=== PATIENT | male | born 1935 | race Caucasian/White ===

== ENCOUNTER → 2019-08-14 | Outpatient (CLI) | payer MEDICARE ==
--- NOTE | 2019-08-14 16:18 | CT ---
EXAMINATION TYPE: CT abdomen pelvis wo con DATE OF EXAM: 08/14/2019 COMPARISON: None INDICATION: Urine retention. DLP: 879.2 mGycm, Automated exposure control for dose reduction was used. CONTRAST: 0 mL of Isovue 300. Study performed without Oral Contrast TECHNIQUE: Axial images were obtained from above the diaphragm to the pubic rami in the axial plane a t 5 mm thick sections. Reconstructed images are reviewed on the computer in the coronal plane. FINDINGS: Limited CT sections are obtained the lung bases. The lung bases are clear. CT ABDOMEN: Liver: Normal Spleen: Normal Pancreas: Normal Adrenal glands: The adrenal glands are normal. Gallbladder: Normal Kidneys: No masses are evident. No hydronephrosis is present. No cysts are present. Vascular calci fication appears to be present. Aorta: Vascular calcification is within the aorta. Inferior vena cava: Normal. CT PELVIS: Loops of bowel within the abdomen and pelvis are normal. Several scattered diverticuli within the si gmoid colon. There are loops of bowel which are incompletely distended or lack oral contrast limiti ng their evaluation. Appendix: Normal as visualized. Urinary bladder: Urinary bladder diverticulum is along the superior right margin. Urinary bladder is distended. Outlet obstruction with a prominent prostate could account for this finding. Genitourinary structures: Prostate is prominent Osseous structures: No suspicious lytic or sclerotic lesions. IMPRESSIONS: 1. Diverticulosis without acute diverticulitis. 2. Prostate hypertrophy could contribute to urinary bladder distention. 3. Urinary bladder diverticulum is present.
== END ==
LOC: RADCTMAIN 14:41
PROVIDERS: ATTEND Urology
DX: K57.90 Diverticulosis of intestine, part unspecified, without perforation or abscess without bleeding (principal); N40.1 Benign prostatic hyperplasia with lower urinary tract symptoms; N32.3 Diverticulum of bladder
CPT/HCPCS: 74176

== ENCOUNTER → 2019-08-23 | Outpatient (CLI) | payer MEDICARE ==
[2019-08-23 13:16] LABS: Basophils % (A) 1 %; Eosinophils # (A) 0.1 k/uL (0-0.7); Eosinophils % (A) 2 %; HCT 39.1 % (39.0-53.0); HGB 12.5 gm/dL (13.0-17.5); Lymphocytes # (A) 0.9 k/uL (1.0-4.8); Lymphocytes % (A) 15 %; MCH 31.8 pg (25.0-35.0); MCHC 31.9 g/dL (31.0-37.0); MCV 99.6 fL (80.0-100.0); Monocytes # (A) 0.3 k/uL (0-1.0); Monocytes % (A) 6 %; Neutrophils # (A) 4.3 k/uL (1.3-7.7); Neutrophils % (A) 75 %; Platelet Count 196 k/uL (150-450); RBC 3.93 m/uL (4.30-5.90); WBC 5.7 k/uL (3.8-10.6)
[2019-08-23 13:20] LABS: Albumin 4.1 g/dL (3.5-5.0); Calcium 9.1 mg/dL (8.4-10.2); Potassium 4.4 mmol/L (3.5-5.1); Total Bilirubin 0.6 mg/dL (0.2-1.3); Total Protein 6.8 g/dL (6.3-8.2)
[2019-08-23 14:43] LABS: Appearance,Urine Clear (Clear); Bilirubin,Urine Negative (Negative); Blood,Urine Negative (Negative); Color,Urine Light Yellow; Glucose,Urine (UA) Negative (Negative); Ketones,Urine Negative (Negative); Leukocyte Esterase,Urine Negative (Negative); Nitrite,Urine Negative (Negative); Protein,Urine Negative (Negative); Specific Gravity,Urine 1.005 (1.001-1.035); Urobilinogen,Urine <2.0 mg/dL (<2.0)
== END | disposition home or self-care (01) ==
LOC: LABPAT 11:53
PROVIDERS: ATTEND Urology
DX: Z01.812 Encounter for preprocedural laboratory examination (principal); Z01.818 Encounter for other preprocedural examination; N32.3 Diverticulum of bladder
CPT/HCPCS: 80053; 81003; 85025; 87086; 93005

== ENCOUNTER 2019-08-30 08:40 | Inpatient (IN) | payer MEDICARE ==
--- NOTE | 2019-08-29 19:28 | P.GSHP ---
History of Present Illness H&P Date: 08/29/19 The patient is 84 He has incomplete bladder emptying aggravated by a large bladder diverticula Hi residuals have increased to a liter His cystoscopies havent identified outlet obstruction He therefore comes for a bladder diverticulectomy aas his symptoms of frequeny and incomplete voiding have worsened. He has been on flomax bid and timed and double void which hasnt helped him, enough H hasa been cleared by cardiology - Constitutional Constitutional: Denies chills, Denies fever - EENT Eyes: denies blurred vision, denies pain Ears, nose, mouth and throat: Denies headache, Denies sore throat - Cardiovascular Cardiovascular: Denies chest pain, Denies shortness of breath - Respiratory Respiratory: Denies cough, Denies 7 - Gastrointestinal Gastrointestinal: Denies abdominal pain, Denies diarrhea, Denies nausea, Denies vomiting - Genitourinary (Female) Genitourinary: Denies dysuria, Denies hematuria - Genitourinary (Male) Genitourinary: Denies dysuria, Denies hematuria - Musculoskeletal Musculoskeletal: Denies myalgias - Integumentary Integumentary: Denies pruritus, Denies rash - Neurological Neurological: Denies numbness, Denies weakness - Psychiatric Psychiatric: Denies anxiety, Denies depression - Endocrine Endocrine: Denies fatigue, Denies weight change Past Medical History Past Medical History: GERD/Reflux, Hearing Disorder / Deafness, Hyperlipidemia, Hypertension Additional Past Medical History / Comment(s): Elevated psa - following with dr burger, macular degeneration. SINUS/ALLERGIES History of Any Multi-Drug Resistant Organisms: None Reported Past Surgical History: Hernia Repair Additional Past Surgical History / Comment(s): Chavo cataract surgery Past Anesthesia/Blood Transfusion Reactions: No Reported Reaction Past Psychological History: Anxiety Smoking Status: Former smoker Past Alcohol Use History: None Reported Additional Past Alcohol Use History / Comment(s): QUIT SMOKING IN EARLY , 1PPD. STILL CHEWS TOBACCO. Past Drug Use History: None Reported - Past Family History Father Family Medical History: Cancer Additional Family Medical History / Comment(s): prostate - passed in 60's Mother Family Medical History: Myocardial Infarction ([place]) Medications and Allergies Home Medications Medication Instructions Recorded Confirmed Type ALPRAZolam [Xanax] 0.25 mg PO DAILY PRN 03/10/16 08/24/19 History Aspirin EC [Ecotrin Low Dose] 81 mg PO DAILY 03/10/16 08/24/19 History Atorvastatin Calcium [Lipitor] 40 mg PO HS 03/10/16 08/24/19 History Cholecalciferol [Vitamin D3 (25 1,000 unit PO DAILY 03/10/16 08/24/19 History Mcg = 1000 Iu)] Lisinopril [Zestril] 10 mg PO QAM 03/10/16 08/24/19 History Magnesium Oxide [Mag-Ox] 400 mg PO DAILY 03/10/16 08/24/19 History Pantoprazole Sodium [Protonix] 40 mg PO DAILY 03/10/16 08/24/19 History Tamsulosin HCl [Flomax] 0.4 mg PO BID 03/10/16 08/24/19 History amLODIPine [Norvasc] 5 mg PO DAILY #30 tab 03/11/16 08/24/19 Rx Ascorbic Acid [Vitamin C] 1 tab PO DAILY 08/24/19 08/24/19 History Ezetimibe [Zetia] 10 mg PO DAILY 08/24/19 08/24/19 History Ferrous Sulfate [Iron (65 MG 1 tab PO DAILY 08/24/19 08/24/19 History Elemental)] Loratadine [Claritin] 10 mg PO DAILY 08/24/19 08/24/19 History Metoprolol Succinate (ER) [Toprol 12.5 mg PO DAILY 08/24/19 08/24/19 History XL] traZODone HCL [TraZODone HCl] 50 - 100 mg PO HS PRN 08/24/19 08/24/19 History Allergies Allergy/AdvReac Type Severity Reaction Status Date / Time No Known Allergies Allergy Unverified 08/24/19 11:45 Surgical - Exam - General well developed, well nourished, no distress - Eyes PERRL - ENT normal pinna, no hearing loss - Neck no masses - Respiratory normal expansion, normal respiratory effort - Cardiovascular Rhythm: regular - Abdomen Abdomen: soft, non tender Hernia: none - Genitourinary normal penis with no external lesions, testicles present - Rectum Rectum: normal sphincter tone - Integumentary no rash, no growths - Musculoskeletal normal gait, normal posture - Psychiatric oriented to time, oriented to person, oriented to place, speech is normal, memory intact Assessment and Plan Assessment: Impression Bladder diverticula Plan: Cysto with probable bladder diverticulectomy
[~2019-08-30 08:40] MED LIST: DEXAMETHASONE SOD PHOSPHATE 10 MG/ML 1 ML VIAL IV ONE; LIDOCAINE 1% 20 ML VIAL (10MG/ML) FOR IV START INTRADERMA PRN; MIDAZOLAM 2 MG/2 ML VIAL IV PRN; SCOPOLAMINE 1.5MG/72HR PATCH TRANSDERM ONE
[2019-08-30] MEDS: LACTATED RINGERS 1,000 ML IV SCH ×2 (09:29→20:48)
[2019-08-30] MEDS: ONDANSETRON 4 MG/2 ML VIAL IVP ONE ×2 (09:29→11:56)
[2019-08-30] MEDS ORDERED: PROPOFOL 10 MG/ML 20 ML VIAL IV ONE (10:00)
[2019-08-30] MEDS ORDERED: fentaNYL (PF) 50 MCG/ML 2 ML AMP ONE (10:00)
[2019-08-30] MEDS ORDERED: ePHEDrine SULFATE/0.9% NACL/PF 50 MG/5 ML SYRINGE IV ONE (10:00)
[2019-08-30] MEDS ORDERED: MIDAZOLAM 2 MG/2 ML VIAL ONE (10:00)
[2019-08-30] MEDS ORDERED: LACTATED RINGERS 1,000 ML IV ONE ×2 (10:53)
[2019-08-30] MEDS ORDERED: MAG HYDROX/AL HYDROX/SIMETH 30 ML CUP PO PRN (11:29)
[2019-08-30] MEDS ORDERED: ACETAMINOPHEN TAB 325 MG TAB PO PRN (11:29)
[2019-08-30] MEDS ORDERED: ONDANSETRON 4 MG/2 ML VIAL IVP PRN (11:29)
[2019-08-30] MEDS ORDERED: NALOXONE 0.4 MG/ML 1 ML VIAL IV PRN (11:32)
--- NOTE | 2019-08-30 11:38 | P.OP ---
Date of Procedure: 08/30/19 Preoperative Diagnosis: Urine retention, bladder diverticula, large Postoperative Diagnosis: Same, bladder neck obstruction Procedure(s) Performed: Cystoscopy, bladder diverticulectomy, incision of bladder neck, intraoperatively with electrocautery Anesthesia: MAC, spinal Surgeon: Osvaldo Hernandez Camp Manager #1: Sean Cunningham Estimated Blood Loss (ml): 50 Pathology: other (Bladder diverticula) Condition: stable Disposition: PACU Indications for Procedure: The patient is 84. He has been having over the years obstructive voiding symptoms. He was on Flomax. Evaluation identified an open prostate but a large posterior wall diverticula. His residuals is slowly climbing. 6 months ago there 600 and recently they or thousand. Since the cystoscopy last year did not ever identify an obstructing prostate was my recommendation that we proceed with a bladder diverticulectomy to help him empty his bladder better to prevent infection stone formation bleeding. Since he is urinating with more difficulty, frequency and urgency we've elected to proceed with the bladder diverticulectomy Description of Procedure: Patient is brought to the operating suite. He is given a spinal anesthetic and then a sedative anesthetic on the operating table. He is prepped and draped sterilely. I first do cystoscopy with a flexible cystoscope. The urethra is normal. Upon entering the prostate the lateral lobe is now obstructing where it was not a year ago. I entered the bladder and there is a large posterior wall bladder diverticulum. A midline suprapubic incision is made below the umbilicus. The rectus fascia is opened in the midline. The prevesical space is developed. The bladder is identified and opened in the midline. A very large volume, liter of urine is obtained. Open the bladder neck identify the large posterior wall diverticulum. We clamped the edges of the diverticulum and incised the mucosa and dissect the mucosa out of the diverticula and deliver it from the specimen. We then reapproximate and close the bladder muscle defect with running 2-0 Vicryl. We closed the mucosa over that with a running 3-0 Vicryl. We then paid attention of the bladder neck. Is very tight and cannot easily fit my index finger. I make 2 bladder neck incisions at 5 and 7:00 such that I can easily pass my finger in and out of the bladder neck. A Mckeon catheters in place, 18-Botswan[place] 5 mL balloon into the bladder. The blad alli is closed in 2 layers of 30 and then 2-0 Vicryl. Anthony-Sultana drains brought through separate stab incision. It is secured with a 2-0 silk. The rectus fascias closed with a double-stranded 0 PDS. The skin is stapled the patient is awakened and returned recovery room in good condition. Blood loss is approximately 50 mL.
[2019-08-30] MEDS: HYDROmorphone 0.5 MG/0.5 ML SYRINGE IVP PRN ×2 (11:56→12:20)
[2019-08-30] MEDS: HYDROmorphone PCA 10 MG/50 ML BAG IV PRN (13:45)
[2019-08-30] MEDS: DEXTROSE 5%-0.45% NACL 1,000 ML IV SCH ×2 (15:17→20:46)
[2019-08-31] MEDS: DEXTROSE 5%-0.45% NACL 1,000 ML IV SCH ×2 (05:01→19:52)
[2019-08-31] MEDS: HYDROmorphone PCA 10 MG/50 ML BAG IV PRN (11:29)
--- NOTE | 2019-08-31 12:48 | P.PN ---
Subjective Progress Note Date: 08/31/19 First postoperative day from a bladder diverticulectomy and incision of bladder neck. He is doing well. His vital signs are stable. He is afebrile. His urine is pink tinged. His abdomen is soft. The JULIAN drainage is minimal. I will advance his diet. I will ambulate the patient. Anticipate discharge in 24-48 hours. Objective - Vital Signs Vital signs: Vital Signs Temp 98 F 08/31/19 07:25 Pulse 73 08/31/19 07:25 Resp 18 08/31/19 07:25 BP 159/71 08/31/19 07:25 Pulse Ox 96 08/31/19 07:25 Intake & Output 08/30/19 08/31/19 08/31/19 18:59 06:59 18:59 Intake Total 2100 1200 Output Total 2200 1520 Balance -100 -320 Weight 103.873 kg Intake: IV 1850 Intake, IV Titration 200 1200 Amount Dextrose 5%-0.45% NaCl 1, 200 1200 000 ml @ 100 mls/hr IV . Q10H [facility] Rx#:[id number] Oral 50 Output: Drainage 20 Lower Anterior Abdomen 20 Urine 2150 1500 Uretheral (Mckeon) 1550 900 Estimated Blood Loss 50 Other: Voiding Method Indwelling Catheter Indwelling Catheter Indwelling Catheter
[2019-09-01] MEDS: LACTATED RINGERS 1,000 ML IV SCH ×2 (03:24→12:16)
[2019-09-01] MEDS: DEXTROSE 5%-0.45% NACL 1,000 ML IV SCH (06:13)
--- NOTE | 2019-09-01 07:33 | P.PN ---
Subjective Progress Note Date: 09/01/19 The patient is in his second postoperative day from bladder diverticulectomy. He feels well. The urine is clearing nicely. The JULIAN drain is minimal and has been removed. The wound looks good. I will continue to ambulate. 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 I'll place him on oral pain medication. Hopefully he can be discharged home in the next 24 hours. Objective - Vital Signs Vital signs: Vital Signs Temp 98.0 F 09/01/19 01:37 Pulse 66 09/01/19 01:37 Resp 18 09/01/19 01:37 BP 138/77 09/01/19 01:37 Pulse Ox 92 L 09/01/19 01:37 Intake & Output 08/31/19 09/01/19 09/01/19 18:59 06:59 18:59 Intake Total 10 Output Total 1200 1065 Balance -1200 -1055 Intake: Oral 10 Output: Drainage 15 Lower Anterior Abdomen 15 Urine 1200 1050 Uretheral (Mckeon) 925 Other: Voiding Method Indwelling Catheter Indwelling Catheter
[2019-09-01] MEDS: HYDROcodone/APAP 5-325MG 1 EACH TAB PO PRN ×2 (14:23→19:38)
[2019-09-01 19:42] VITALS: RESP 14
[2019-09-02] MEDS: HYDROcodone/APAP 5-325MG 1 EACH TAB PO PRN ×2 (01:49→07:20)
[2019-09-02] MEDS: LACTATED RINGERS 1,000 ML IV SCH (07:18)
[2019-09-02 07:50] VITALS: BP 177/79; PULSE 88; TEMP 99.8
--- NOTE | 2019-09-02 10:55 | P.DS ---
Providers Date of admission: 09/01/19 09:42 Expected date of discharge: 09/02/19 Attending physician: Osvaldo Hernandez Primary care physician: Venkat Pimentel [facility] Course: On the day of admission, the patient underwent an uncomplicated open bladder diverticulectomy. The bladder neck was incised at that time. The perioperative course was unremarkable. He remained afebrile with stable vital signs. JULIAN drainage was minimal, and therefore the drain was removed on the second postoperative day. On the third postoperative day, the patient was comfortable. He was tolerating diet and was ambulating. The incision was clean and dry. The Mckeon catheter was draining faintly pink tinged urine. Procedures: Bladder diverticulectomy on 08/30/2019 Patient Condition at Discharge: Good Plan - Discharge Summary Discharge Rx Participant: No New Discharge Prescriptions: New HYDROcodone/APAP 5-325MG [[place] 5-325] 1 tab PO Q4HR PRN #14 tab PRN Reason: Pain No Action Magnesium Oxide [Mag-Ox] 400 mg PO DAILY Cholecalciferol [Vitamin D3 (25 Mcg = 1000 Iu)] 1,000 unit PO DAILY Tamsulosin HCl [Flomax] 0.4 mg PO BID Pantoprazole Sodium [Protonix] 40 mg PO DAILY Aspirin EC [Ecotrin Low Dose] 81 mg PO DAILY Lisinopril [Zestril] 10 mg PO QAM Atorvastatin Calcium [Lipitor] 40 mg PO HS ALPRAZolam [Xanax] 0.25 mg PO DAILY PRN PRN Reason: Anxiety amLODIPine [Norvasc] 5 mg PO DAILY #30 tab Ascorbic Acid [Vitamin C] 1 tab PO DAILY Ezetimibe [Zetia] 10 mg PO DAILY Ferrous Sulfate [Iron (65 MG Elemental)] 1 tab PO DAILY Loratadine [Claritin] 10 mg PO DAILY Metoprolol Succinate (ER) [Toprol XL] 12.5 mg PO DAILY traZODone HCL [TraZODone HCl] 50 - 100 mg PO HS PRN PRN Reason: Insomnia Discharge Medication List ALPRAZolam [Xanax] 0.25 mg PO DAILY PRN 03/10/16 [History] Aspirin EC [Ecotrin Low Dose] 81 mg PO DAILY 03/10/16 [History] Atorvastatin Calcium [Lipitor] 40 mg PO HS 03/10/16 [History] Cholecalciferol [Vitamin D3 (25 Mcg = 1000 Iu)] 1,000 unit PO DAILY 03/10/16 [History] Lisinopril [Zestril] 10 mg PO QAM 03/10/16 [History] Magnesium Oxide [Mag-Ox] 400 mg PO DAILY 03/10/16 [History] Pantoprazole Sodium [Protonix] 40 mg PO DAILY 03/10/16 [History] Tamsulosin HCl [Flomax] 0.4 mg PO BID 03/10/16 [History] amLODIPine [Norvasc] 5 mg PO DAILY #30 tab 03/11/16 [Rx] Ascorbic Acid [Vitamin C] 1 tab PO DAILY 08/24/19 [History] Ezetimibe [Zetia] 10 mg PO DAILY 08/24/19 [History] Ferrous Sulfate [Iron (65 MG Elemental)] 1 tab PO DAILY 08/24/19 [History] Loratadine [Claritin] 10 mg PO DAILY 08/24/19 [History] Metoprolol Succinate (ER) [Toprol XL] 12.5 mg PO DAILY 08/24/19 [History] traZODone HCL [TraZODone HCl] 50 - 100 mg PO HS PRN 08/24/19 [History] HYDROcodone/APAP 5-325MG [P[place]roke 5-325] 1 tab PO Q4HR PRN #14 tab 09/01/19 [Rx] Follow up Appointment(s)/Referral(s): Osvaldo Hernandez MD [STAFF PHYSICIAN] - 09/11/19 Activity/Diet/Wound Care/Special Instructions: Discharge home with Mckeon catheter. Please offer patient an overnight drainage bag, a leg bag, or both, and instruct him on the use of the drainage bag. Diet as tolerated. Drink plenty of fluids. Okay to shower. No lifting, driving, or strenuous activity. Discharge Disposition: HOME SELF-CARE
== END 2019-09-02 13:05 | disposition home or self-care (01) | DRG 655 ==
LOC: OR 08:40 → 4SSUR 11:31 → OR 09-01 09:42 → 4SSUR 09-01 09:42
PROVIDERS: ADMIT Urology; ATTEND Urology
PROC: 0TJB8ZZ Inspection of Bladder, Via Natural or Artificial Opening Endoscopic (ICD-10-PCS; 2019-08-30)
PROC: 0T9B70Z Drainage of Bladder with Drainage Device, Via Natural or Artificial Opening (ICD-10-PCS; 2019-08-30)
PROC: 0TBB0ZZ Excision of Bladder, Open Approach (ICD-10-PCS; principal; 2019-08-30 09:30)
PROC: 0T7 Urinary System, Dilation (ICD-10-PCS; 2019-08-30 09:30)
DX: N32.0 Bladder-neck obstruction (principal); N32.3 Diverticulum of bladder; E78.5 Hyperlipidemia, unspecified; F41.9 Anxiety disorder, unspecified; H91.90 Unspecified hearing loss, unspecified ear; I10 Essential (primary) hypertension; N13.9 Obstructive and reflux uropathy, unspecified; F17.220 Nicotine dependence, chewing tobacco, uncomplicated; Z79.82 Long term (current) use of aspirin; Z79.899 Other long term (current) drug therapy; Z82.49 Family history of ischemic heart disease and other diseases of the circulatory system; Z80.42 Family history of malignant neoplasm of prostate
CPT/HCPCS: 88304

== ENCOUNTER 2020-05-16 17:58 | Inpatient (IN) | payer MEDICARE ==
[2020-05-16] MEDS ORDERED: HEPARIN SODIUM,PORCINE 5,000 UNIT/ML 1 ML VIAL IV PRN (18:49)
[2020-05-16] MEDS ORDERED: HEPARIN SODIUM,PORCINE 5,000 UNIT/ML 1 ML VIAL IV ONE (18:49)
--- NOTE | 2020-05-16 18:52 | ED ---
General Adult HPI - General Chief complaint: Extremity Problem,Nontraumatic Stated complaint: leg swelling/facial Time Seen by Provider: 05/16/20 18:30 Source: patient Mode of arrival: wheelchair Limitations: no limitations - History of Present Illness Initial comments: Dictation was produced using [employer] dictation software. please excuse any gramm atical, word or spelling errors. This patient was cared for during a federal and state declared state of emergency secondary to Covid 19 Chief Complaint: 85-year-old male presents with abnormal outpatient lab. History of Present Illness: 85-year-old male who presents today with abnormal outpatient lab. Patient was directed to come to the emergency department by his primary care physician. Patient over the last several weeks has been battling lower extremity leg swelling and shortness of breath. He is recently started on Lasix. He had some blood tests drawn by his primary care physician. He was told to come to the emergency department after he had an abnormal lab test. Audrey denise denies any history of atrial fibrillation. Does not take any blood thinners. The ROS documented in this emergency department record has been reviewed and confirmed by me. Those systems with pertinent positive or negative responses have been documented in the HPI. All other systems are other negative and/or noncontributory. PHYSICAL EXAM: General Impression: Alert and oriented x3, not in acute distress HEENT: Normocephalic atraumatic, extra-ocular movements intact, pupils equal and reactive to light bilaterally, mucous membranes moist. Cardiovascular: Irregular Chest: Able to complete full sentences, no retractions, no tachypnea, mild crackles to the left lung base Abdomen: abdomen soft, non-tender, non-distended, no organomegaly Musculoskeletal: Pulses present and equal in all extremities, 2+ pitting edema bilaterally Motor: no focal deficits noted Neurological: CN II-XII grossly intact, no focal motor or sensory deficits noted Skin: Intact with no visualized rashes Psych: Normal affect and mood ED course: 85-year-old male presents with symptoms of heart failure. He had an abnormal blood tests that was noted by his private care physician. He is instructed him to the emergency department. Signs upon arrival shows 94% on room air, rest of vital signs within acceptable limits. EKG issues atrial fibrillation. Patient denies any history of A. fib. He does not take any blood thinners. Clinical presentation concerning for new onset atrial fibrillation. Laboratory evaluation obtained. CBC, coag panel, metabolic panel is unremarkable. Brain natruretic peptide is 1860. Chest x-ray shows mild interstitial pattern concerning for heart failure. There is also some suspected bronchogenic carcinoma that appears to be new since prior study. Patient is stable on heparin. Patient will be admitted with cardiology consultation. Considering that there is concerning findings lung CA pulmonology will be consulted as well. Patient and patient's family is agreeable to disposition. EKG interpretation: Ventricular rate 60, A. fib, QRS 100, QTC 434. No FL prolongation, no QTC prolongation, no ST or T-wave changes noted. - Related Data Home Medications Medication Instructions Recorded Confirmed ALPRAZolam [Xanax] 0.25 mg PO DAILY PRN 03/10/16 05/16/20 Aspirin EC [Ecotrin Low Dose] 81 mg PO HS 03/10/16 05/16/20 Atorvastatin Calcium [Lipitor] 40 mg PO HS 03/10/16 05/16/20 Lisinopril [Zestril] 10 mg PO HS 03/10/16 05/16/20 Pantoprazole Sodium [Protonix] 40 mg PO HS 03/10/16 05/16/20 Tamsulosin HCl [Flomax] 0.4 mg PO BID 03/10/16 05/16/20 Ezetimibe [Zetia] 10 mg PO HS 08/24/19 05/16/20 Metoprolol Succinate (ER) [Toprol 12.5 mg PO DAILY 08/24/19 05/16/20 XL] traZODone HCL [TraZODone HCl] 50 - 100 mg PO HS PRN 08/24/19 05/16/20 Cephalexin [Keflex] 500 mg PO Q8H 05/16/20 05/16/20 Furosemide [Lasix] 20 mg PO DAILY 05/16/20 05/16/20 fluocinolone acetonide oiL 5 drops BOTH EARS BID 05/16/20 05/16/20 [Fluocinolone Acetonide Oil (Otic)] Previous Rx's Medication Instructions Recorded amLODIPine [Norvasc] 5 mg PO DAILY #30 tab 03/11/16 Allergies Allergy/AdvReac Type Severity Reaction Status Date / Time No Known Allergies Allergy Verified 05/16/20 19:56 Review of Systems ROS Statement: Those systems with pertinent positive or pertinent negative responses have been documented in the HPI. ROS Other: All systems not noted in ROS Statement are negative. Past Medical History Past Medical History: GERD/Reflux, Hearing Disorder / Deafness, Hyperlipidemia, Hypertension Additional Past Medical History / Comment(s): elevated psa - following with dr burger, macular degeneration History of Any Multi-Drug Resistant Organisms: None Reported Past Surgical History: Hernia Repair Additional Past Surgical History / Comment(s): rodolfo cataract surgery Past Anesthesia/Blood Transfusion Reactions: No Reported Reaction Past Psychological History: No Psychological Hx Reported Smoking Status: Former smoker Past Alcohol Use History: None Reported Past Drug Use History: None Reported - Past Family History Father Family Medical History: Cancer Additional Family Medical History / Comment(s): prostate - passed in 60's Mother Family Medical History: Myocardial Infarction ([place]) General Exam Limitations: no limitations Course Vital Signs 05/16/20 05/16/20 05/16/20 18:17 19:06 20:01 Temperature 98.4 F Pulse Rate 69 65 62 Respiratory 18 14 18 Rate Blood Pressure 158/117 149/89 156/87 O2 Sat by Pulse 94 L 95 98 Oximetry Medical Decision Making - Lab Data Result diagrams: 05/16/20 18:53 05/16/20 18:53 Lab Results 05/16/20 05/16/20 05/16/20 Range/Units 18:53 18:53 18:53 WBC 7.0 (3.8-10.6) k/uL RBC 3.96 L (4.30-5.90) m/uL Hgb 12.2 L (13.0-17.5) gm/dL Hct 38.7 L (39.0-53.0) % MCV 97.8 (80.0-100.0) fL MCH 30.7 (25.0-35.0) pg MCHC 31.4 (31.0-37.0) g/dL RDW 13.2 (11.5-15.5) % Plt Count 193 (150-450) k/uL Neutrophils % 74 % Lymphocytes % 15 % Monocytes % 6 % Eosinophils % 1 % Basophils % 1 % Neutrophils # 5.2 (1.3-7.7) k/uL Lymphocytes # 1.1 (1.0-4.8) k/uL Monocytes # 0.5 (0-1.0) k/uL Eosinophils # 0.1 (0-0.7) k/uL Basophils # 0.1 (0-0.2) k/uL PT 10.3 (9.0-12.0) sec INR 1.0 (<1.2) APTT 24.8 (22.0-30.0) sec Sodium 134 L (137-145) mmol/L Potassium 5.0 (3.5-5.1) mmol/L Chloride 100 (98-107) mmol/L Carbon Dioxide 25 (22-30) mmol/L Anion Gap 9 mmol/L BUN 25 H (9-20) mg/dL Creatinine 1.21 (0.66-1.25) mg/dL Est GFR (CKD-EPI)AfAm 63 (>60 ml/min/1.73 sqM) Est GFR (CKD-EPI)NonAf 54 (>60 ml/min/1.73 sqM) Glucose 103 H (74-99) mg/dL Calcium 8.9 (8.4-10.2) mg/dL Total Bilirubin 0.8 (0.2-1.3) mg/dL AST 29 (17-59) U/L ALT 23 (4-49) U/L Alkaline Phosphatase 100 (38-126) U/L Troponin I (0.000-0.034) ng/mL NT-Pro-B Natriuret Pep pg/mL Total Protein 6.6 (6.3-8.2) g/dL Albumin 4.2 (3.5-5.0) g/dL 05/16/20 05/16/20 Range/Units 18:53 18:53 WBC (3.8-10.6) k/uL RBC (4.30-5.90) m/uL Hgb (13.0-17.5) gm/dL Hct (39.0-53.0) % MCV (80.0-100.0) fL MCH (25.0-35.0) pg MCHC (31.0-37.0) g/dL RDW (11.5-15.5) % Plt Count (150-450) k/uL Neutrophils % % Lymphocytes % % Monocytes % % Eosinophils % % Basophils % % Neutrophils # (1.3-7.7) k/uL Lymphocytes # (1.0-4.8) k/uL Monocytes # (0-1.0) k/uL Eosinophils # (0-0.7) k/uL Basophils # (0-0.2) k/uL PT (9.0-12.0) sec INR (<1.2) APTT (22.0-30.0) sec Sodium (137-145) mmol/L Potassium (3.5-5.1) mmol/L Chloride (98-107) mmol/L Carbon Dioxide (22-30) mmol/L Anion Gap mmol/L BUN (9-20) mg/dL Creatinine (0.66-1.25) mg/dL Est GFR (CKD-EPI)AfAm (>60 ml/min/1.73 sqM) Est GFR (CKD-EPI)NonAf (>60 ml/min/1.73 sqM) Glucose (74-99) mg/dL Calcium (8.4-10.2) mg/dL Total Bilirubin (0.2-1.3) mg/dL AST (17-59) U/L ALT (4-49) U/L Alkaline Phosphatase (38-126) U/L Troponin I <0.012 (0.000-0.034) ng/mL NT-Pro-B Natriuret Pep 1860 pg/mL Total Protein (6.3-8.2) g/dL Albumin (3.5-5.0) g/dL Disposition Clinical Impression: New onset a-fib, Abnormal CXR Disposition: ADMITTED IP TO THIS [facility] Condition: Fair Referrals: Venkat Heard III, MD [Primary Care Provider] - 1-2 days Decision Time: 20:17
[2020-05-16] MEDS ORDERED: HEPARIN SOD,PORK IN 0.45% NACL 25,000 UNIT in 0.45% NACL 1 250ML.BAG IV SCH (19:00)
[2020-05-16 19:03] LABS: Basophils # (A) 0.1 k/uL (0-0.2); Basophils % (A) 1 %; Eosinophils # (A) 0.1 k/uL (0-0.7); Eosinophils % (A) 1 %; HCT 38.7 % (39.0-53.0); HGB 12.2 gm/dL (13.0-17.5); Lymphocytes # (A) 1.1 k/uL (1.0-4.8); Lymphocytes % (A) 15 %; MCH 30.7 pg (25.0-35.0); MCHC 31.4 g/dL (31.0-37.0); MCV 97.8 fL (80.0-100.0); Mean Platelet Volume 7.8; Monocytes # (A) 0.5 k/uL (0-1.0); Monocytes % (A) 6 %; Neutrophils # (A) 5.2 k/uL (1.3-7.7); Neutrophils % (A) 74 %; Platelet Count 193 k/uL (150-450); RBC 3.96 m/uL (4.30-5.90); RDW 13.2 % (11.5-15.5)
[2020-05-16 19:11] LABS: Albumin 4.2 g/dL (3.5-5.0); Calcium 8.9 mg/dL (8.4-10.2); Total Bilirubin 0.8 mg/dL (0.2-1.3); Total Protein 6.6 g/dL (6.3-8.2)
[2020-05-16 19:12] LABS: Partial Thromboplastin Time 24.8 sec (22.0-30.0); Prothrombin Time 10.3 sec (9.0-12.0)
--- NOTE | 2020-05-16 20:14 | XR ---
EXAMINATION: XR chest 2V DATE AND TIME: 05/16/2020 7:18 PM CLINICAL INDICATION: dyspnea TECHNIQUE: Departmental protocol COMPARISON: 03/11/2016 FINDINGS: There is a new 4 cm diameter right upper lobe opacity not seen on the prior study. This appears to ov erlap the scapula on the lateral radiograph, suggesting a bronchogenic mass. This finding is highly s uspicious for bronchogenic carcinoma. There appears to be a subtle fine interstitial pattern of increased density bilaterally, with evidenc e of minimal pleural effusions posteriorly. These subtle findings can correspond with the clinical di agnosis of mild pulmonary edema. The cardiac silhouette is borderline enlarged. The remainder of the mediastinal silhouette is unremar kable. The skeletal structures and soft tissues are negative for acute findings. IMPRESSION: 1. 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 2. Mild interstitial pattern can correlate with a clinical diagnosis of mild interstitial edema.
[2020-05-16] MEDS ORDERED: NALOXONE 0.4 MG/ML 1 ML VIAL IV PRN (20:17)
[2020-05-16] MEDS ORDERED: FUROSEMIDE 10 MG/ML 2 ML VIAL IV SCH (21:45)
[2020-05-16] MEDS: PANTOPRAZOLE 40 MG TABLET PO SCH (21:55)
[2020-05-16] MEDS: SODIUM CHLORIDE 0.9% 1,000 ML IV SCH (21:56)
[2020-05-16] MEDS: TAMSULOSIN 0.4 MG CAP.ER.24H PO SCH (21:56)
[2020-05-16] MEDS: lisinopriL 10 MG TAB PO SCH (21:56)
[2020-05-16] MEDS: ATORVASTATIN 40 MG TAB PO SCH (21:56)
[2020-05-16] MEDS: EZETIMIBE 10 MG TAB PO SCH (22:11)
[2020-05-17 08:15] LABS: Albumin 3.4 g/dL (3.5-5.0); Calcium 8.5 mg/dL (8.4-10.2); Potassium 4.8 mmol/L (3.5-5.1); Total Bilirubin 0.7 mg/dL (0.2-1.3); Total Protein 5.7 g/dL (6.3-8.2)
[2020-05-17] MEDS ORDERED: FUROSEMIDE 10 MG/ML 4 ML VIAL ONE (08:48)
[2020-05-17] MEDS: FUROSEMIDE 10 MG/ML 4 ML VIAL IV SCH ×3 (08:52→23:16)
[2020-05-17] MEDS ORDERED: DEXTROSE/WATER 1 250ML.BAG with DOPamine DRIP 800 MG IV SCH ×2 (09:00→16:45)
[2020-05-17] MEDS: TAMSULOSIN 0.4 MG CAP.ER.24H PO SCH ×2 (09:48→20:16)
--- NOTE | 2020-05-17 10:06 | CONS ---
JOSEFA Watson is an 85-year-old gentleman with history of hypertension and dyslipidemia who is admitted to hospital by his primary care physician following an abnormal blood test. It is unclear as to what abnormal length he had Patient has been developing progressively worsening lower extremity edema and shortness of breath and had recently been started on Lasix. At the time of his initial presentation, he was found to be in atrial fibrillation with controlled ventricular rate and is admitted to the hospital with a diagnosis of congestive heart failure and new onset atrial fibrillation. He is on IV heparin and a small dose of Lasix. At the time of my evaluation this morning, he remains in atrial fibrillation with slow ventricular rate. The patient was on a small dose of beta attila in the outpatient, but did not receive any on this admission. The patient has had atrial fibrillation with slow ventricular rate with heart rates dropping into the 30s also. Patient has some concern about lung CA and this thing is being worked up too. Given the slow ventricular rate, patient will probably need a permanent pacemaker. I will start him on a small dose of dopamine in the meantime. PAST MEDICAL HISTORY: Significant for new onset congestive heart failure, hypertension, and dyslipidemia. CURRENT MEDICATIONS: Include trazodone, Norvasc 5 q. daily, Flomax 0.4 b.i.d., Protonix, Toprol-XL, Zestril 10 q. daily, Lasix 20 q. daily, Zetia, Keflex, Lipitor, aspirin and Xanax. ALLERGIES: There are no known drug allergies. FAMILY HISTORY: Negative for premature coronary artery disease. SOCIAL HISTORY: Negative for current smoking, EtOH abuse, or drug abuse. REVIEW OF SYSTEMS: HEENT; Unremarkable. CARDIAC: As described above. RESPIRATORY: As described above. GI: Negative. GENITOURINARY: Negative. ALLERGY: None. SKIN: Negative. MUSCULOSKELETAL: Significant for arthritis. PSYCHOSOCIAL: Negative. ENDOCRINE: Negative. CONSTITUTIONAL: Negative. ONCOLOGICAL: Negative. ONLINE EDITOR: Negative. Rest of the system review is not relevant. On exam, patient is comfortable at rest. Heart rate is 58 beats per minute. Blood pressure is 140/75, respiratory rate is 17, O2 saturation is 96% on 3 L. There is no jugular venous distention. Carotid upstroke is diminished. There is no bruit. Chest exam reveals diminished air entry bilaterally. Heart exam reveals first and second heart sounds. No gallop. Irregular rhythm. Abdomen is soft. Exam of the extremities reveals moderate bilateral pitting edema. LABS: Show a potassium of 4.8, creatinine is 1.1. Troponin is negative. BNP is 1860. I do not have a TSH, will get one. Hemoglobin is normal at 12.2. His chest x-ray showed a 4 cm mass and mild interstitial changes. EKG showed atrial fibrillation with slow ventricular rate. ASSESSMENT: 1. New onset atrial fibrillation with slow ventricular rate. 2. Acute onset congestive heart failure. 3. Lung mass. PLAN: I am going to obtain a 2D echo to document his LV function. Treat him with IV Lasix 40 IV q.8. Continue the Lipitor and Zetia that he was on and continue the Zestril. He is currently on heparin. I will convert him to either Xarelto or Eliquis at the appropriate time and patient will probably need a permanent pacemaker, if he continues to be bradycardiac. I am going to start him on dopamine and see how his heart rate responds. MMANTONIAL / IJN: [id number] /
[2020-05-17] MEDS: HEPARIN SOD,PORK IN 0.45% NACL 25,000 UNIT in 0.45% NACL 1 250ML.BAG IV SCH ×3 (16:17→20:17)
--- NOTE | 2020-05-17 16:27 | CONS ---
CONSULTATION PULMONARY/CRITICAL CARE CONSULTATION: DATE OF SERVICE: 05/17/2020 REASON FOR CONSULTATION: Abnormal chest x-ray. This is an 85-year-old gentleman who presents to the emergency department because he was directed to the ER by his primary care physician because of an abnormal laboratory result. He apparently was seen in the emergency room and was noted to have some mild heart failure. In addition, he had significant lower extremity edema and his EKG showed evidence of atrial fibrillation. Currently, the patient is getting dopamine via infusion. In addition, the patient is likely going to have a pacemaker implanted tomorrow. I told the patient that his chest x-ray showed a mass in the chest. It may be bronchogenic carcinoma. The mass is about 4 cm in size in the right upper lung. The patient was a smoker in the past. The patient understands that the workup can be done as an outpatient, that more importantly, the cardiac situation needs to be squared away. I told him that the workup would include a CAT scan, probably a PET scan, and likely a biopsy. Currently, the patient does have some shortness of breath. He denies any chest pain or pressure. He does have lower extremity edema. There is no fever or chills. He is not coughing or producing any phlegm. CURRENT HOME MEDICATIONS: Include Xanax, low-dose aspirin, Lipitor, lisinopril, Protonix, Flomax, Zetia, metoprolol, trazodone, Keflex, Lasix, and solution for his ears. He is also on amlodipine. ALLERGIES: Denied. MEDICAL HISTORY: Include gastroesophageal reflux disease, deafness, hyperlipidemia, hypertension, elevated PSA, being followed by one of the urologist, and macular degeneration. SURGICAL HISTORY: Includes hernia repair and bilateral cataract surgery. SOCIAL HISTORY: Positive for previous heavy tobacco use. Does not smoke currently. Denies any alcohol use or illicit drug use. FAMILY HISTORY: Positive for a father with prostate cancer and a mother who had a myocardial infarction. REVIEW OF SYSTEMS: CONSTITUTIONAL: Weakness. NEUROLOGIC: Negative. HEENT: Negative. CARDIOVASCULAR: Negative. PULMONARY: Shortness of breath. GI: Negative. : Negative. RHEUMATOLOGIC: Negative. IMMUNOLOGIC: Negative. ENDOCRINOLOGIC: Negative. DERMATOLOGIC: Negative. Current vital signs are reviewed, temperature 98.3, heart rate 70, respiratory rate 16, blood pressure 166/74 mean 104, 2 L saturation 93%-97%. Appears in no acute distress. HEENT: Examination is grossly unremarkable. NECK: Supple. Full range of motion. No adenopathy. Neck veins are flat. CARDIOVASCULAR: Examination reveals a regular rhythm and rate. S1, S2 normal. Heart rate about mid 70s. LUNGS: Reveal some bibasilar crackles. There are no wheezes or rhonchi. Breath sounds equal. ABDOMEN: Soft, bowel sounds are heard. EXTREMITIES: Reveal significant pitting edema, probably 1 to 2+. SKIN: Without rash. NEUROLOGIC: Examination is brief but nonfocal. A chest x-ray dated May 16, 2020 shows a 4 cm mass in the right upper lobe. It was not seen on a prior x-ray done in 2016. In addition, there is some diffuse interstitial changes consistent with mild edema as well as some small bilateral effusions. LABS: Reviewed. White count 7, hemoglobin 12.2, hematocrit 38.7, platelet count normal. PT, INR, PTT all normal. Sodium 135, potassium 4.8, chloride 102, CO2 is 26, anion gap is 7. BUN and creatinine were 24 and 1.0. The rest of her labs look okay. Reports have been noted. Current medications are reviewed. The patient is currently on Xanax, Lipitor, dopamine drip, Zetia, Lasix, IV heparin, lisinopril, Narcan, Protonix, and Flomax. ASSESSMENT: 1. Congestive heart failure. 2. New onset atrial fibrillation. 3. Anticipated pacemaker insertion this weekend. 4. A 4 cm mass, right upper lobe, in a patient with a prior history of tobacco use, the mass is new since 2016, rule out bronchogenic carcinoma. 5. Hyperlipidemia. 6. History of hypertension. 7. History of elevated PSA. 8. History of deafness. 9. Macular degeneration. PLAN: I told the patient that his workup could be an outpatient evaluation. We will include a CT scan of the chest as well as a possible PET scan and probably a lung biopsy. Additional recommendations and suggestions are forthcoming. Prognosis is guarded. Currently, he has much more to worry about in regards to his cardiac issues right now. His chest x-ray is consistent with heart failure. His exam is as well. In addition, the patient will need a pacemaker. Will continue to follow. MMODL / IJN: [id number] /
--- NOTE | 2020-05-17 17:00 | ECHOF ---
Referral Reason:afib MEASUREMENTS -------- HEIGHT: 182.9 cm WEIGHT: 118.4 kg BP: 142/75 RVIDd: 3.9 cm (< 3.3) IVSd: 1.2 cm (0.6 - 1.1) LVIDd: 5.0 cm (3.9 - 5.3) LVPWd: 1.3 cm (0.6 - 1.1) IVSs: 1.8 cm LVIDs: 3.0 cm LVPWs: 1.8 cm LA Diam: 4.0 cm (2.7 - 3.8) LAESV Index (A-L): 22.97 ml/m Ao Diam: 3.4 cm (2.0 - 3.7) AV Cusp: 2.2 cm (1.5 - 2.6) MV EXCURSION: 18.069 mm (> 18.000) MV EF SLOPE: 143 mm/s (70 - 150) EPSS: 1.0 cm RAP: 15.00 mmHg RVSP: 53.42 mmHg FINDINGS -------- Atrial fibrillation. This was a technically difficult study with suboptimal views. The left ventricular size is normal. There is mild concentric left ventricular hypertrophy. Overa ll left ventricular systolic function is low-normal with, an EF between 50 - 55 %. The right ventricle is moderately enlarged. Normal LA size by volume 22+/-6 ml/m2. The right atrium is normal in size. Lumason used Interatrial and interventricular septum intact. There is mild aortic valve sclerosis. Mild mitral annular calcification present. Mild mitral regurgitation is present. Mild tricuspid regurgitation present. There is moderate pulmonary hypertension. The right ventric ular systolic pressure, as measured by Doppler, is 53.42mmHg. The pulmonic valve was not well visualized. The aortic root size is normal. The inferior vena cava is dilated with no significant inspiratory collapse which is consistent estima rex right atrial pressure of >15 mmHg. There is no pericardial effusion. CONCLUSIONS -------- 1. Atrial fibrillation. 2. The left ventricular size is normal. 3. There is mild concentric left ventricular hypertrophy. 4. Overall left ventricular systolic function is low-normal with, an EF between 50 - 55 %. 5. The right ventricle is moderately enlarged. 6. Normal LA size by volume 22+/-6 ml/m2. 7. Lumason used 8. There is mild aortic valve sclerosis. 9. Mild mitral annular calcification present. 10. Mild mitral regurgitation is present. 11. Mild tricuspid regurgitation present. 12. There is moderate pulmonary hypertension. 13. The right ventricular systolic pressure, as measured by Doppler, is 53.42mmHg. 14. The inferior vena cava is dilated with no significant inspiratory collapse which is consistent es timated right atrial pressure of >15 mmHg. 15. There is no pericardial effusion. SCALER: Aline Tinoco RDCS
[2020-05-17] MEDS: lisinopriL 10 MG TAB PO SCH (20:16)
[2020-05-17] MEDS: EZETIMIBE 10 MG TAB PO SCH (20:16)
[2020-05-17] MEDS: ATORVASTATIN 40 MG TAB PO SCH (20:16)
[2020-05-17] MEDS: PANTOPRAZOLE 40 MG TABLET PO SCH (20:16)
[2020-05-17] MEDS: ALPRAZolam 0.25 MG TAB PO PRN (23:15)
[2020-05-17] MEDS: SODIUM CHLORIDE 0.9% 1,000 ML IV SCH (23:16)
--- NOTE | 2020-05-17 23:44 | P.HPIM ---
History of Present Illness H&P Date: 05/17/20 Chief Complaint: leg swelling and CASSY Patient is a 85-year-old male with a known history of hypertension, hyperlipidemia, GERD and hearing disorder and previous history of smoking presents to ER due to abdominal outpatient lab. Patient was sent to ER by his primary care physician. Patient initially was seen by primary care physician due to bilateral lower extremity swelling and shortness of breath for the past 3 to 4 weeks. Patient was started on Lasix, in the ER patient was found to be in atrial fibrillation with rapid regular rate and acute CHF. Patient denied any complaints of chest pain. No complaints of cough or sputum production. No fever no chills. No nausea vomiting or abdominal pain or diarrhea. Chest x-ray showed suspected bronchogenic carcinoma, new since prior study. There is 4 cm diameter right upper lobe opacity not seen on prior study sugges ting a bronchogenic mass. Mild interstitial pattern can correlate with the clinical diagnosis of mild interstitial edema. EKG showed atrial fibrillation. Laboratory data showed WBC 7.0, hemoglobin 12.1 platelets 193 INR 1.0 Sodium 134, potassium 5.0, BUN 25 and creatinine 1.21 Blood sugar is 103 Liver enzymes are not elevated Troponin x1- BNP 1860 TSH 2.5 patient is currently on 2 L oxygen via nasal cannula Review of Systems Constitutional: Patient denies any fever or chills . No generalized weakness or weight loss. Abdomen: Patient denied nausea vomiting and diarrhea and abdominal pain. Cardiovascular: Patient denies any chest pain , Patient does have shortness of breath and leg swelling. no palpitations. Respiratory: patient denied any cough is from production. No shortness of breath Neurologic: Patient denied any numbness or tingling headache. Musculoskeletal: Patient denies any complaints of joint swelling or deformity. Skin: Negative Psychiatric: Negative Endocrine: No heat or cold intolerance. No recent weight gain. Genitourinary: No dysuria or hematuria. All other 14 point ROS negative except the above Past Medical History Past Medical History: GERD/Reflux, Hearing Disorder / Deafness, Hyperlipidemia, Hypertension Additional Past Medical History / Comment(s): elevated psa - following with dr burger, macular degeneration History of Any Multi-Drug Resistant Organisms: None Reported Past Surgical History: Hernia Repair Additional Past Surgical History / Comment(s): rodolfo cataract surgery Past Anesthesia/Blood Transfusion Reactions: No Reported Reaction Past Psychological History: No Psychological Hx Reported Smoking Status: Former smoker Past Alcohol Use History: None Reported Additional Past Alcohol Use History / Comment(s): QUIT SMOKING IN EARLY , 1PPD. STILL CHEWS TOBACCO. Past Drug Use History: None Reported - Past Family History Father Family Medical History: Cancer Additional Family Medical History / Comment(s): prostate - passed in 60's Mother Family Medical History: Myocardial Infarction (ND) Medications and Allergies Home Medications Medication Instructions Recorded Confirmed Type ALPRAZolam [Xanax] 0.25 mg PO DAILY PRN 03/10/16 05/16/20 History Aspirin EC [Ecotrin Low Dose] 81 mg PO HS 03/10/16 05/16/20 History Atorvastatin Calcium [Lipitor] 40 mg PO HS 03/10/16 05/16/20 History Lisinopril [Zestril] 10 mg PO HS 03/10/16 05/16/20 History Pantoprazole Sodium [Protonix] 40 mg PO HS 03/10/16 05/16/20 History Tamsulosin HCl [Flomax] 0.4 mg PO BID 03/10/16 05/16/20 History amLODIPine [Norvasc] 5 mg PO DAILY #30 tab 03/11/16 05/16/20 Rx Ezetimibe [Zetia] 10 mg PO HS 08/24/19 05/16/20 History Metoprolol Succinate (ER) [Toprol 12.5 mg PO DAILY 08/24/19 05/16/20 History XL] traZODone HCL [TraZODone HCl] 50 - 100 mg PO HS PRN 08/24/19 05/16/20 History Cephalexin [Keflex] 500 mg PO Q8H 05/16/20 05/16/20 History Furosemide [Lasix] 20 mg PO DAILY 05/16/20 05/16/20 History fluocinolone acetonide oiL 5 drops BOTH EARS BID 05/16/20 05/16/20 History [Fluocinolone Acetonide Oil (Otic)] Allergies Allergy/AdvReac Type Severity Reaction Status Date / Time No Known Allergies Allergy Verified 05/16/20 19:56 Physical Exam Vitals: Vital Signs Temp Pulse Pulse Resp BP BP Pulse Ox 05/17/20 04:51 58 L 17 142/75 96 05/17/20 03:05 98.3 F 63 18 143/76 96 05/16/20 23:05 98.4 F 76 18 133/64 96 05/16/20 21:10 98.2 F 6 L 22 139/72 92 L 05/16/20 20:48 67 18 96 05/16/20 20:01 62 18 156/87 98 05/16/20 19:06 65 14 149/89 95 05/16/20 18:17 98.4 F 69 18 158/117 94 L Intake and Output 05/16/20 05/17/20 05/17/20 22:59 06:59 14:59 Intake Total 68.84 327.992 Output Total 1375 200 Balance -1306.16 127.992 Intake: Intake, IV Titration 68.84 87.992 Amount Heparin Sod,Pork in 0.45% 68.84 87.992 NaCl 25,000 unit In 0.45 % NaCl 1 250ml.bag @ 8.32 UNITS/KG/HR 10.001 mls/ hr IV .Q24H JEREMIAH Rx#: [id number] Oral 240 Output: Urine 1375 200 Other: # Voids 1 Weight 120.202 kg 118.5 kg PHYSICAL EXAMINATION: Patient is lying in the bed comfortably, no acute distress, awake alert and oriented.. HEENT: Normocephalic. Neck is supple. Pupils reactive. Nostrils clear. Oral cavity is moist. Ears reveal no drainage. Neck reveals no JVD, carotid bruits, or thyromegaly. CHEST EXAMINATION: Trachea is central. Symmetrical expansion. Bibasilar diminished air entry and crackles. No wheezing.. CARDIAC: Normal S1, S2 with no gallops. No murmurs ABDOMEN: Soft. Bowel sounds normal. No organomegaly. No abdominal bruits. Extremities:2+edema. No clubbing or cyanosis Neurologically awake, alert, oriented x3 with well-coordinated movements. No focal deficits noted Skin: No rash or skin lesions. Psychiatric: Coperative. Nonsuicidal Musculoskeletal: No joint swelling or deformity. Normal range of motion. Results CBC & Chem 7: 05/16/20 18:53 05/17/20 06:36 Labs: Abnormal Lab Results - Last 24 Hours (Table) 05/16/20 05/16/20 05/17/20 Range/Units 18:53 18:53 06:36 RBC 3.96 L (4.30-5.90) m/uL Hgb 12.2 L (13.0-17.5) gm/dL Hct 38.7 L (39.0-53.0) % APTT 84.6 H (22.0-30.0) sec Sodium 134 L (137-145) mmol/L BUN 25 H (9-20) mg/dL Glucose 103 H (74-99) mg/dL Total Protein (6.3-8.2) g/dL Albumin (3.5-5.0) g/dL 05/17/ Range/Units 06:36 RBC (4.30-5.90) m/uL Hgb (13.0-17.5) gm/dL Hct (39.0-53.0) % APTT (22.0-30.0) sec Sodium 135 L (137-145) mmol/L BUN 24 H (9-20) mg/dL Glucose (74-99) mg/dL Total Protein 5.7 L (6.3-8.2) g/dL Albumin 3.4 L (3.5-5.0) g/dL Thrombosis Risk Factor Assmnt - DVT/VTE Prophylaxis DVT/VTE Prophylaxis: Pharmacologic Prophylaxis ordered - Choose All That Apply Any of the Below Risk Factors Present?: Yes Each Factor Represents 1 point: Obesity (BMI >25), Swollen legs (current) Each Risk Factor Represents 3 Points: Age 75 years or older Other congenital or acquired thrombophilia - If yes, enter type in comment: No Thrombosis Risk Factor Assessment Total Risk Factor Score: 5 Thrombosis Risk Factor Assessment Level: High Risk Assessment and Plan Assessment: Atrial fibrillation with RVR new onset New onset CHF with elevated BNP and interstitial edema. Ejection fraction not known Bradyarrhythmia Right upper 4 cm lung mass suspected le bronchogenic carcinoma Hypertension Hyperlipidemia Elevated PSA on follow-up with urology as an outpatient GERD Previous history of smoking Plan: Patient was started on Cardizem drip and heparin drip. Continue with telemetry monitoring. Troponin x1-. Continue with IV diuresis cardiology and pulmonary was consulted. Continue with statins and due to bradycardia patient may need permanent pacemaker placement. Patient was started on dopamine drip currently. Prognosis guarded. Continue to follow closely. Time with Patient: Greater than 30
[2020-05-18] MEDS: FUROSEMIDE 10 MG/ML 4 ML VIAL IV SCH ×2 (08:32→18:27)
[2020-05-18] MEDS: TAMSULOSIN 0.4 MG CAP.ER.24H PO SCH ×2 (08:32→21:07)
--- NOTE | 2020-05-18 10:41 | P.PN ---
Subjective Progress Note Date: 05/18/20 Principal diagnosis: Acute exacerbation of diastolic congestive heart failure The patient is seen today 05/18/2020 in follow-up on the selective care unit. He is currently resting fairly comfortably in bed. Awake and alert in no acute distress. He is currently on a heparin drip. His dopamine has been discontinued this morning. Current heart rate 59. He is afebrile. Maintaining O2 saturations in the low 90s on room air. Cardiology is following for possible permanent pacemaker implantation. Objective - Vital Signs Vital signs: Vital Signs Temp 97.8 F 05/18/20 08:30 Pulse 59 L 05/18/20 08:30 Resp 16 05/18/20 08:30 BP 127/81 05/18/20 08:30 Pulse Ox 91 L 05/18/20 08:30 Intake & Output 05/17/20 05/18/20 05/18/20 18:59 06:59 18:59 Intake Total 944.359 281.505 88.98 Output Total 2375 2575 1225 Balance -1430.641 -2293.495 -1136.02 Weight 110.6 kg 106.6 kg Intake: Intake, IV Titration 164.359 281.505 88.98 Amount Dextrose/Water 1 250ml. 45 bag @ 2.5 MCG/KG/MIN 5. 184 mls/hr IV .Q24H JEREMIAH with DOPamine DRIP 800 mg Rx#:[id number] Heparin Sod,Pork in 0.45% 164.359 NaCl 25,000 unit In 0.45 % NaCl 1 250ml.bag @ 8.32 UNITS/KG/HR 10.001 mls/ hr IV .Q24H JEREMIAH Rx#: [id number] Heparin Sod,Pork in 0.45% 56.505 88.98 NaCl 25,000 unit In 0.45 % NaCl 1 250ml.bag @ 9 UNITS/KG/HR 9.954 mls/hr IV .Q24H JEREMIAH Rx#: [id number] Sodium Chloride 0.9% 1, 180 000 ml @ 20 mls/hr IV . Q24H JEREMIAH Rx#:[id number] Oral 780 Output: Urine 2375 2575 1225 Other: Voiding Method Urinal # Voids 2 - Exam GENERAL EXAM: Alert, pleasant 85-year-old gentleman, on room air, comfortable in no apparent distress. HEAD: Normocephalic. EYES: Normal reaction of pupils, equal size. NOSE: Clear with pink turbinates. THROAT: No erythema or exudates. NECK: No masses, no JVD. CHEST: No chest wall deformity. LUNGS: Equal air entry with basilar crackles. CVS: S1 and S2 normal with no audible murmur, irregular rhythm. ABDOMEN: No hepatosplenomegaly, normal bowel sounds, no guarding or rigidity. SPINE: No scoliosis or deformity SKIN: No rashes CENTRAL NERVOUS SYSTEM: No focal deficits, tone is normal in all 4 extremities. EXTREMITIES: There is no peripheral edema. No clubbing, no cyanosis. Peripheral pulses are intact. - Labs CBC & Chem 7: 05/16/20 18:53 05/17/20 06:36 Labs: Abnormal Lab Results - Last 24 Hours (Table) 05/17/20 05/17/20 05/18/20 Range/Units 14:08 22:27 06:14 APTT 106.8 H* 43.9 H 67.3 H (22.0-30.0) sec Assessment and Plan Assessment: 1 Acute hypoxemic respiratory failure secondary to an acute onset of suspected diastolic congestive heart failure with preserved left ventricular systolic function. 2 New onset atrial fibrillation with bradycardia initially requiring dopamine. On a heparin drip 3 Right upper lobe opacity measuring 4 cm suggestive of bronchogenic mass/carcinoma 4 Previous history of heavy tobacco dependence 5 History of hypertension 6 Hyperlipidemia 7 History of elevated PSA 9 Macular degeneration. 10 Gastroesophageal reflux disease Plan: The patient was seen and evaluated by Dr. Nguyen Currently stable from the pulmonary standpoint Awaiting further input from cardiology regarding possible pacemaker implantation The patient will need a outpatient PET scan and navigational bronchoscopy with biopsy of the opacity of the right upper lobe In the interim, we'll continue to follow and make further recommendations based on his clinical status I, the cosigning physician, performed a history & physical examination of the patient. Lungs sounds with bibasilar crackles. Maintaining good O2 saturations in the 90s on room air. I discussed the assessment and plan of care with my nurse practitioner, Sangita Srivatsava. I attest to the above note as dictated by her.
[2020-05-18] MEDS ORDERED: SODIUM CHLORIDE 0.9% 1,000 ML IV SCH (10:45)
[2020-05-18] MEDS: SODIUM CHLORIDE 0.9% 1,000 ML IV SCH ×2 (11:04→23:22)
--- NOTE | 2020-05-18 11:46 | P.PN ---
Subjective Progress Note Date: 05/18/20 This is a pleasant 85-year-old gentleman with history of hypertension hyperlipidemia who follows with Dr. Alejandro in the office. Presented to the hospital with progressively worsening lower extremity edema and shortness of breath. Was found to be in atrial fibrillation which is new and subsequently developed a slow ventricular response. His beta attila was held and he continued to have heart rates dropping into the 30s. He was started on a small dose of dopamine with some improvement however this was discontinued and again this morning he dropped into the 30s and 40s. There is a concern of lung cancer and he is being followed by pulmonary in this regard. Echocardiogram on admission showed low normal LV systolic function with an ejection fraction of 50-55% with mild MR, mild TR and moderate pulmonary hypertension. Upon examination, patient is resting comfortably in bed. Overall he is feeling okay except for feeling quite tired. He denies any palpitations, dizziness or lightheadedness. He's had no syncope or near syncope. He denies any chest discomfort. Does have some shortness of breath with exertion. Objective - Vital Signs Vital signs: Vital Signs Temp 97.8 F 05/18/20 08:30 Pulse 59 L 05/18/20 08:30 Resp 16 05/18/20 08:30 BP 127/81 05/18/20 08:30 Pulse Ox 91 L 05/18/20 08:30 Intake & Output 05/17/20 05/18/20 05/18/20 18:59 06:59 18:59 Intake Total 944.359 281.505 112.835 Output Total 2375 8185 1225 Balance -1430.641 -2293.495 -1112.165 Weight 110.6 kg 106.6 kg Intake: Intake, IV Titration 164.359 281.505 112.835 Amount Dextrose/Water 1 250ml. 45 bag @ 2.5 MCG/KG/MIN 5. 184 mls/hr IV .Q24H [facility] with DOPamine DRIP 800 mg Rx#:[id number] Heparin Sod,Pork in 0.45% 164.359 NaCl 25,000 unit In 0.45 % NaCl 1 250ml.bag @ 8.32 UNITS/KG/HR 10.001 mls/ hr IV .Q24H [facility] Rx#: [id number] Heparin Sod,Pork in 0.45% 56.505 112.835 NaCl 25,000 unit In 0.45 % NaCl 1 250ml.bag @ 9 UNITS/KG/HR 9.954 mls/hr IV .Q24H [facility] Rx#: [id number] Sodium Chloride 0.9% 1, 180 000 ml @ 20 mls/hr IV . Q24H [facility] Rx#:[id number] Oral 780 Output: Urine 2375 2575 1225 Other: Voiding Method Urinal # Voids 2 - Exam PHYSICAL EXAMINATION: HEENT: Head is atraumatic, normocephalic. Pupils equal, round. Neck is supple. There is no elevated jugular venous pressure. HEART EXAMINATION: Heart sounds irregularly irregular, S1 and S2 with a systolic murmur. Bradycardia noted. CHEST EXAMINATION: Lungs are clear to auscultation. No chest wall tenderness is noted on palpation or with deep breathing. ABDOMEN: Soft, nontender. Bowel sounds are heard. No organomegaly noted. EXTREMITIES: 2+ peripheral pulses with evidence of mild peripheral edema and no calf tenderness noted. NEUROLOGIC patient is awake, alert and oriented x3. . - Labs CBC & Chem 7: 05/16/20 18:53 05/17/20 06:36 Labs: Abnormal Lab Results - Last 24 Hours (Table) 05/17/20 05/17/20 05/18/20 Range/Units 14:08 22:27 06:14 APTT 106.8 H* 43.9 H 67.3 H (22.0-30.0) sec Assessment and Plan Assessment: #1 new onset atrial fibrillation of unknown duration, likely persistent, with slow ventricular response #2 chronic diastolic congestive heart failure with mild exacerbation #3 lung mass, being followed by pulmonary Plan: From cardiology's perspective patient will require insertion of permanent pacemaker which will be done today by Dr. Xavier at 3 PM. The risks, benefits and alternative therapies for the above-mentioned procedure and for both sedation/analgesia as well as necessary blood product administration, if in dicated, have been discussed with the patient. The patient has indicated understanding and acceptance of the risks and procedures discussed. Questions have been answered appropriately and he is agreeable to move forward with the above stated procedure. The above dictated assessment and findings were discussed with signing physician. The impression and plan of care have been directed as dictated. Genna Fam, Nurse Practitioner, acting as scribe for signing physician.
--- NOTE | 2020-05-18 13:17 | PN ---
PROGRESS NOTE Walter is an 85-year-old gentleman who was admitted to hospital with new onset atrial fibrillation and congestive heart failure and also has a lung mass. Throughout this hospitalization, patient has had a slow heart rate with heart rates often dropping into the 30s. Yesterday, I tried him on dopamine and thru night his heart rates were mostly between 50 and 80, so I stopped the dopamine this morning. Again, his heart rates dropped in the 30s. The patient needs and would benefit from a permanent pacemaker. I discussed risks and benefits with him. This is going to be done this afternoon by Dr. Xavier. The patient had labs today. Potassium is 4.8. Creatinine is 1.1. TSH is 3.5. He had an echocardiogram on this admission that revealed an ejection fraction of 50-55 percent with moderate pulmonary hypertension. The patient needs to be on beta blockers because of the new onset congestive heart failure and having a pacemaker will give us the ability to do so. ALICIA / SHANTEL: [id number] /
[2020-05-18] MEDS ORDERED: IV FLUID CONTINUATION 350 ML IV ONE (14:20)
[2020-05-18] MEDS ORDERED: IOPAMIDOL-250 50ML BTL IV ONE (14:44)
[2020-05-18] MEDS ORDERED: ceFAZolin 1,000 MG in SODIUM CHLORIDE 0.9% IRRIGATIO 250 ML IRRIGATION ONE (15:00)
[2020-05-18] MEDS: MIDAZOLAM 2 MG/2 ML VIAL IV ONE ×2 (15:05→15:15)
[2020-05-18] MEDS: HYDROmorphone 1 MG/ML 1 ML SYRINGE IVP ONE ×2 (15:06→15:15)
[2020-05-18] MEDS ORDERED: LIDOCAINE 1% INJ 10MG/ML (20 ML MDV) SQ ONE (15:10)
[2020-05-18] MEDS ORDERED: LIDOCAINE 1% INJ 10MG/ML (20 ML MDV) ONE (15:13)
[2020-05-18] MEDS ORDERED: ACETAMINOPHEN TAB 325 MG TAB PO PRN (15:56)
--- NOTE | 2020-05-18 16:04 | P.PCN ---
Date of Procedure: 05/18/20 Preoperative Diagnosis: Sick sinus syndrome with a severe bradycardia with underlying atrial fibrillation Postoperative Diagnosis: The same Procedure(s) Performed: Single-chamber permanent pacemaker implantation, axillary venography Description of Procedure: HISTORY: This is a 85-year-old gentleman with history of new-onset atrial fibrillation evidence of sick sinus syndrome and severe bradycardia. Patient is advised to have permanent pacemaker implantation. He was evaluated by Dr. Lindsay. Patient was on beta attila which was held because of bradycardia. Patient was also treated with dopamine. CONSENT:I have discussed the risks, benefits and alternative therapies for the above-mentioned procedure and for both sedation/analgesia as well as necessary blood product administration, if indicated, as they pertain to this patient. The patient has indicated understanding and acceptance of the risks and procedures discussed. PROCEDURE: Patient was brought to the lab in a fasting state. Patient was prepped and draped in the usual fashion. Patient was given IV sedation with Dilaudid and Versed. The skin below the left clavicle was infiltrated with lidocaine. An incision was made parallel to deltopectoral groove was deepened until the pectoral fascia was exposed. A pocket was created by blunt dissection and cautery. Axillary venography was performed to delineate the course of the axillary vein. A single venous stick was performed into extrathoracic portion of the axillary vein and a single sheath weas advanced over the guidewires and left in subclavian vein. Conscious Sedation: Versed 1mg Dilaudid: 1 Duration 44minutes LEADS: VENTRICULAR: This is manufactured by [employer] model number is 5076-58 and the serial number is [id number] The ventricular lead is maneuvered l with help of a straight and curved stylets into the left ventricle apical region. Satisfactory position was obtained and threshold measurements were made. THRESHOLDS: VENTRICLE: The minimal pacing threshold is 0.875 V at pulse width of 0.4. The impedance is 1083 R-wave: 9.25 The leads and pulse generator remained in the pocket after it was washed with antibiotics. Pocket was closed in the usual fashion. The fascia was closed with 2-0 Prolene ,the subcutaneous tissue was closed with 3-0 Prolene and the skin was closed with 4-0 Prolene. PROGRAMMING: MODE: VVIR RATE: 60 to 130OUTPUT: Ventricle: 3.5. V FINAL IMPRESSION: #1. Axillary venography #2. Successful implantation of single-chamber pacemaker COMPLICATIONS: None PLAN:. Continue prophylactic antibiotics. Continue monitoring. Hold heparin. Anticoagulation was restarted after 48 hours
[2020-05-18] MEDS: ATORVASTATIN 40 MG TAB PO SCH (21:06)
[2020-05-18] MEDS: PANTOPRAZOLE 40 MG TABLET PO SCH (21:06)
[2020-05-18] MEDS: EZETIMIBE 10 MG TAB PO SCH (21:07)
[2020-05-18] MEDS: lisinopriL 10 MG TAB PO SCH (21:07)
[2020-05-18] MEDS: ALPRAZolam 0.25 MG TAB PO PRN (23:22)
--- NOTE | 2020-05-18 23:43 | P.PN ---
Subjective Progress Note Date: 05/18/20 Patient is a 85-year-old male with a known history of hypertension, hyperlipidemia, GERD and hearing disorder and previous history of smoking presents to ER due to abdominal outpatient lab. Patient was sent to ER by his primary care physician. Patient initially was seen by primary care physician due to bilateral lower extremity swelling and shortness of breath for the past 3 to 4 weeks. Patient was started on Lasix, in the ER patient was found to be in atrial fibrillation with rapid regular rate and acute CHF. Patient denied any complaints of chest pain. No complaints of cough or sputum production. No fever no chills. No nausea vomiting or abdominal pain or diarrhea. Chest x-ray showed suspected bronchogenic carcinoma, new since prior study. There is 4 cm diameter right upper lobe opacity not seen on prior study suggesting a bronchogenic mass. Mild interstitial pattern can correlate with the clinical diagnosis of mild interstitial edema. EKG showed atrial fibrillation. Laboratory data showed WBC 7.0, hemoglobin 12.1 platelets 193 INR 1.0 Sodium 134, potassium 5.0, BUN 25 and creatinine 1.21 Blood sugar is 103 Liver enzymes are not elevated Troponin x1- BNP 1860 TSH 2.5 patient is currently on 2 L oxygen via nasal cannula 05/18/2020 Patient is currently lying in the bed comfortably. Patient underwent dual- chamber pacemaker placement due to sick sinus syndrome, bradycardia and atrial fibrillation. Currently being diagnosed with IV Lasix 40 mg every 8 hourly. Bilateral leg swelling is much improved. No complaints of worsening shortness of breath. Currently being maintained on heparin drip. Dopamine has been discontinued. No nausea vomiting abdominal pain or diarrhea. No fever no chills. Continued on telemetry monitoring. Pulmonary and cardiology is following. Current medications reviewed. Objective - Vital Signs Vital signs: Vital Signs Temp 98 F 05/18/20 16:20 Pulse 76 05/18/20 17:41 Resp 16 05/18/20 17:41 BP 111/76 05/18/20 17:41 Pulse Ox 98 05/18/20 17:41 Intake & Output 05/18/20 05/18/20 05/19/20 06:59 18:59 06:59 Intake Total 281.505 362.835 Output Total 2575 1475 Balance -2293.495 -1112.165 Weight 106.6 kg Intake: IV 250 Intake, IV Titration 281.505 112.835 Amount Dextrose/Water 1 250ml. 45 bag @ 2.5 MCG/KG/MIN 5. 184 mls/hr IV .Q24H [facility] with DOPamine DRIP 800 mg Rx#:[id number] Heparin Sod,Pork in 0.45% 56.505 112.835 NaCl 25,000 unit In 0.45 % NaCl 1 250ml.bag @ 9 UNITS/KG/HR 9.954 mls/hr IV .Q24H [facility] Rx#: [id number] Sodium Chloride 0.9% 1, 180 000 ml @ 20 mls/hr IV . Q24H [facility] Rx#:[id number] Output: Urine 1365 1475 Other: Voiding Method Urinal Urinal - Exam PHYSICAL EXAMINATION: Patient is lying in the bed comfortably, no acute distress, awake alert and oriented.. HEENT: Normocephalic. Neck is supple. Pupils reactive. Nostrils clear. Oral cavity is moist. Ears reveal no drainage. Neck reveals no JVD, carotid bruits, or thyromegaly. CHEST EXAMINATION: Trachea is central. Symmetrical expansion. Bibasilar diminished air entry and crackles. No wheezing.. CARDIAC: Normal S1, S2 with no gallops. No murmurs ABDOMEN: Soft. Bowel sounds normal. No organomegaly. No abdominal bruits. Extremities:2+edema. No clubbing or cyanosis Neurologically awake, alert, oriented x3 with well-coordinated movements. No focal deficits noted Skin: No rash or skin lesions. Psychiatric: Coperative. Nonsuicidal Musculoskeletal: No joint swelling or deformity. Normal range of motion. - Labs CBC & Chem 7: 05/16/20 18:53 05/17/20 06:36 Labs: Abnormal Lab Results - Last 24 Hours (Table) 05/17/20 05/18/20 Range/Units 22:27 06:14 APTT 43.9 H 67.3 H (22.0-30.0) sec Assessment and Plan Assessment: Atrial fibrillation with RVR new onset Sick sinus syndrome, bradycardia. Status post dual-chamber pacemaker placement on 05/18/2020 New onset CHF with elevated BNP and interstitial edema. Ejection fraction not known Bradyarrhythmia Right upper 4 cm lung mass suspected le bronchogenic carcinoma Hypertension Hyperlipidemia Elevated PSA on follow-up with urology as an outpatient GERD Previous history of smoking Plan: Patient was started on Cardizem drip and heparin drip. due to bradycardia patient underwent permanent pacemaker placement. Cardizem drip has been discontinued. Continue with telemetry monitoring. Troponin x1-. Continue with IV diuresis cardiology and pulmonary is following. Continue with statins. Prognosis guarded. Continue to follow closely. Time with Patient: Greater than 30
[2020-05-19] MEDS: FUROSEMIDE 10 MG/ML 4 ML VIAL IV SCH ×2 (01:44→08:18)
--- NOTE | 2020-05-19 07:39 | XR ---
EXAMINATION TYPE: XR chest 2V DATE OF EXAM: 05/19/2020 HISTORY: Lead placement check. REFERENCE: Previous study dated 05/16/2020. FINDINGS: Unipolar pacemaker is been inserted. Its tip overlies the right ventricle. The lungs are overinflated. There is a 3 cm mass in the right upper lung. There is some mild atelecta tic changes at the lung bases. The heart is not enlarged. There is mild blunting of the left CP angle . I could not exclude a small effusion. No pneumothorax is seen. IMPRESSION: 1. SATISFACTORY PACEMAKER PLACEMENT. 2. COPD. 3. RIGHT UPPER LOBE 3 CM MASS. 4. I COULD NOT EXCLUDE A SMALL LEFT EFFUSION.
[2020-05-19 08:05] LABS: Basophils # (A) 0.1 k/uL (0-0.2); Basophils % (A) 1 %; Eosinophils # (A) 0.2 k/uL (0-0.7); Eosinophils % (A) 3 %; HCT 37.8 % (39.0-53.0); HGB 12.1 gm/dL (13.0-17.5); Hypochromasia Slight; Lymphocytes # (A) 1.2 k/uL (1.0-4.8); Lymphocytes % (A) 16 %; MCH 31.1 pg (25.0-35.0); MCV 97.4 fL (80.0-100.0); Mean Platelet Volume 7.5; Monocytes # (A) 0.6 k/uL (0-1.0); Monocytes % (A) 7 %; Neutrophils # (A) 5.4 k/uL (1.3-7.7); Neutrophils % (A) 72 %; Platelet Count 168 k/uL (150-450); RBC 3.88 m/uL (4.30-5.90); RDW 13.1 % (11.5-15.5); WBC 7.5 k/uL (3.8-10.6)
[2020-05-19] MEDS: TAMSULOSIN 0.4 MG CAP.ER.24H PO SCH (08:17)
[2020-05-19] MEDS: SODIUM CHLORIDE 0.9% 1,000 ML IV SCH (08:17)
[2020-05-19 08:27] LABS: Calcium 8.5 mg/dL (8.4-10.2); Potassium 4.2 mmol/L (3.5-5.1)
[2020-05-19 08:28] VITALS: RESP 16; TEMP 97.9
[2020-05-19] MEDS ORDERED: FUROSEMIDE 40 MG TAB PO SCH (10:29)
[2020-05-19] MEDS ORDERED: APIXABAN 5 MG TAB PO SCH (10:30)
[2020-05-19] MEDS ORDERED: METOPROLOL SUCCINATE (ER) 25 MG TAB.ER.24H PO SCH (11:00)
[2020-05-19 11:40] VITALS: BP 138/73; PULSE 74
--- NOTE | 2020-05-19 11:57 | PN ---
PROGRESS NOTE Walter is an 85-year-old gentleman who was admitted to hospital with acute onset diastolic heart failure and new onset atrial fibrillation. He had a slow ventricular rate due to which he underwent a permanent pacemaker. A chest x-ray done post pacer implant shows that there is no pneumothorax. His pacemaker is functioning normally. Pacer has been checked this morning. EXAM: Heart rate is 70 beats per minute. Blood pressure is 102/60, respiratory rate is 16. Chest exam reveals good air entry bilaterally. Heart exam reveals first and second heart sounds. No gallop. Abdomen is soft. Exam of extremities reveals bilateral pitting edema, but this has improved significantly. We will discharge the patient home on Eliquis 5 b.i.d., Zetia 10 daily, Lasix 40 b.i.d., Zestril 10 daily, Toprol-XL 12.5 daily. ASSESSMENT: 1. Acute onset diastolic heart failure. 2. Persistent atrial fibrillation with slow ventricular rate. 3. Lung mass. The patient can be discharged home today. Outpatient followup arranged through my office. MMODL / IJN: [id number] /
--- NOTE | 2020-05-19 12:40 | P.PN ---
Subjective Progress Note Date: 05/19/20 Principal diagnosis: Acute exacerbation of diastolic congestive heart failure The patient is seen today 05/18/2020 in follow-up on the selective care unit. He is currently resting fairly comfortably in bed. Awake and alert in no acute distress. He is currently on a heparin drip. His dopamine has been discontinued this morning. Current heart rate 59. He is afebrile. Maintaining O2 saturations in the low 90s on room air. Cardiology is following for possible permanent pacemaker implantation. The patient is seen today 05/19/2020 in follow-up on the selective care unit. He is awake and alert in no acute distress. Resting comfortably in bed. He did undergo permanent pacemaker implantation yesterday for his sick sinus syndrome and severe bradycardia with underlying atrial fibrillation. Chest x-ray revealed no pneumothorax. Evidence of COPD. Right upper lobe mass measuring 3 cm. Small left effusion. White count 7.5. Hemoglobin 12.1. Cinnamon 34. Potassium 4.2. Creatinine 1.13. Objective - Vital Signs Vital signs: Vital Signs Temp 97.9 F 05/19/20 08:10 Pulse 74 05/19/20 11:41 Resp 16 05/19/20 11:41 BP 138/73 05/19/20 11:25 Pulse Ox 91 L 05/19/20 11:25 Intake & Output 05/18/20 05/19/20 05/19/20 18:59 06:59 18:59 Intake Total 362.835 118 Output Total 1475 375 200 Balance -1112.165 -375 -82 Weight 103.873 kg Intake: IV 250 Intake, IV Titration 112.835 Amount Heparin Sod,Pork in 0.45% 112.835 NaCl 25,000 unit In 0.45 % NaCl 1 250ml.bag @ 9 UNITS/KG/HR 9.954 mls/hr IV .Q24H [facility] Rx#: [id number] Oral 118 Output: Urine 1475 375 200 Other: Voiding Method Urinal Urinal Urinal # Voids 1 - Exam GENERAL EXAM: Alert, pleasant 85-year-old gentleman, on room air, comfortable in no apparent distress. HEAD: Normocephalic. EYES: Normal reaction of pupils, equal size. NOSE: Clear with pink turbinates. THROAT: No erythema or exudates. NECK: No masses, no JVD. CHEST: Dressing to the left subclavian pacemaker site dry and intact. No chest wall deformity. LUNGS: Equal air entry with basilar crackles. CVS: S1 and S2 normal with no audible murmur, irregular rhythm. ABDOMEN: No hepatosplenomegaly, normal bowel sounds, no guarding or rigidity. SPINE: No scoliosis or deformity SKIN: No rashes CENTRAL NERVOUS SYSTEM: No focal deficits, tone is normal in all 4 extremities. EXTREMITIES: There is no peripheral edema. No clubbing, no cyanosis. Peripheral pulses are intact. - Labs CBC & Chem 7: 05/19/20 07:44 05/19/20 07:44 Labs: Abnormal Lab Results - Last 24 Hours (Table) 05/19/20 05/19/20 Range/Units 07:44 07:44 RBC 3.88 L (4.30-5.90) m/uL Hgb 12.1 L (13.0-17.5) gm/dL Hct 37.8 L (39.0-53.0) % Sodium 134 L (137-145) mmol/L Chloride 93 L (98-107) mmol/L Carbon Dioxide 32 H (22-30) mmol/L BUN 23 H (9-20) mg/dL Glucose 125 H (74-99) mg/dL Assessment and Plan Assessment: 1 Acute hypoxemic respiratory failure secondary to an acute onset of suspected diastolic congestive heart failure with preserved left ventricular systolic function. 2 New onset atrial fibrillation with bradycardia initially requiring dopamine. Status post permanent pacemaker implantation. Postoperative day #1. 3 Right upper lobe opacity measuring 4 cm suggestive of bronchogenic mass/carcinoma 4 Previous history of heavy tobacco dependence 5 History of hypertension 6 Hyperlipidemia 7 History of elevated PSA 9 Macular degeneration. 10 Gastroesophageal reflux disease Plan: The patient was seen and evaluated by Dr. Nguyen Currently stable from the pulmonary standpoint Home once cleared by cardiology The patient will need a outpatient PET scan and navigational bronchoscopy with biopsy of the opacity of the right upper lobe Follow-up in the office in 1-2 weeks' time. I, the cosigning physician, performed a history & physical examination of the patient. Lungs sounds with bibasilar crackles. Maintaining good O2 saturations in the 90s on room air. I discussed the assessment and plan of care with my nurse practitioner, Sangita Srivastava. I attest to the above note as dictated by her.
== END 2020-05-19 16:21 | disposition home or self-care (01) | DRG 242 ==
LOC: EC 17:58 → 3SCARD 20:18
PROVIDERS: ADMIT Internal Medicine; ATTEND Internal Medicine
PROC: 3E033XZ Introduction of Vasopressor into Peripheral Vein, Percutaneous Approach (ICD-10-PCS; 2020-05-18)
PROC: 02HK3JZ Insertion of Pacemaker Lead into Right Ventricle, Percutaneous Approach (ICD-10-PCS; principal; 2020-05-18 14:27)
PROC: 0JH604Z Insertion of Pacemaker, Single Chamber into Chest Subcutaneous Tissue and Fascia, Open Approach (ICD-10-PCS; principal; 2020-05-18 14:27)
DX: I49.5 Sick sinus syndrome (principal); I50.33 Acute on chronic diastolic (congestive) heart failure; J96.01 Acute respiratory failure with hypoxia; I48.19 Other persistent atrial fibrillation; C34.11 Malignant neoplasm of upper lobe, right bronchus or lung; I27.20 Pulmonary hypertension, unspecified; I11.0 Hypertensive heart disease with heart failure; J44.9 Chronic obstructive pulmonary disease, unspecified; Z20.828 Contact with and (suspected) exposure to other viral communicable diseases; K21.9 Gastro-esophageal reflux disease without esophagitis; H91.90 Unspecified hearing loss, unspecified ear; E78.5 Hyperlipidemia, unspecified; H35.30 Unspecified macular degeneration; M19.90 Unspecified osteoarthritis, unspecified site; E66.9 Obesity, unspecified; Z68.31 Body mass index [BMI] 31.0-31.9, adult; F17.220 Nicotine dependence, chewing tobacco, uncomplicated; Z71.6 Tobacco abuse counseling; Z79.82 Long term (current) use of aspirin; Z79.899 Other long term (current) drug therapy; Z87.438 Personal history of other diseases of male genital organs; Z87.19 Personal history of other diseases of the digestive system; Z98.42 Cataract extraction status, left eye; Z98.41 Cataract extraction status, right eye; Z98.890 Other specified postprocedural states; Z80.42 Family history of malignant neoplasm of prostate; Z82.49 Family history of ischemic heart disease and other diseases of the circulatory system
CPT/HCPCS: 33207; 36415; 71046; 80048; 80053; 83880; 84443; 84484; 85025; 85610; 85730; 93005; 93306; 96365; 96366; 96376; 99284

== ENCOUNTER → 2020-06-10 | Outpatient (CLI) | payer MEDICARE ==
--- NOTE | 2020-06-10 21:48 | CT ---
EXAMINATION TYPE: CT chest w con DATE OF EXAM: 06/10/2020 COMPARISON: 05/29/2020 just x-ray HISTORY: abnormal chest xray CT DLP: 621 mGycm, Automated exposure control for dose reduction was used. CONTRAST: Performed injected with 80 mL of Isovue 300. TECHNIQUE: Axial images were obtained at 5 mm thick sections. Reconstructed images are reviewed on [employer] computer in the coronal plane. FINDINGS: Portion of the thyroid visualized is normal. There is a 4.0 x 4.4 cm spiculated mass right upper lobe. Emphysematous changes are present through the remaining portions of the lung oropeza. No enlarged mediastinal or hilar adenopathy is evident. The ascending aorta diameter at the level o f the main pulmonary artery is 3.5 cm. The main pulmonary artery diameter at the bifurcation is 3.0 cm. Coronary artery calcification is present Limited CT sections are obtained through the upper abdomen. Abdomen is essentially unremarkable. IMPRESSIONS: 1. Spiculated mass right upper lobe suggestive for neoplasm. PET CT recommended for additional workup
== END | disposition home or self-care (01) ==
LOC: RADCTMAIN 07:06
PROVIDERS: ATTEND Internal Medicine Critical Care Medicine
DX: R91.8 Other nonspecific abnormal finding of lung field (principal)
CPT/HCPCS: 82565; 84520; 71260; 36415; Q9967

== ENCOUNTER → 2020-06-26 | Outpatient (CLI) | payer MEDICARE | END | disposition home or self-care (01) | LOC: CPPFTMAIN 10:32 | PROVIDERS: ATTEND Internal Medicine Critical Care Medicine | DX: J44.9 Chronic obstructive pulmonary disease, unspecified (principal); R94.2 Abnormal results of pulmonary function studies | CPT/HCPCS: 94060; 94726; 94729 ==

== ENCOUNTER → 2020-07-05 | Outpatient (CLI) | payer MEDICARE ==
--- NOTE | 2020-07-06 19:53 | PE ---
EXAMINATION TYPE: PET CT fusion skull to thigh DATE OF EXAM: 07/05/2020 COMPARISON: Chest CT June 10, 2020. CT abdomen and pelvis August 14, 2019. HISTORY: Solitary pulmonary nodule. Abnormal CT. TECHNIQUE: Following the intravenous administration of 13.8 mCi of F-18 FDG, whole body images are p erformed from the skull base to the midthigh. Images are reviewed on the computer in the coronal, ax ial, and sagittal planes. Reconstructed rotating images are created on independent workstation and r eviewed on the computer. A localization and attenuation correction CT is performed in conjunction w ith the PET scan. SCAN: Initial Scan FINDINGS: SKULL BASE AND NECK: No areas of suspicious hypermetabolic uptake. CHEST, MEDIASTINUM, AND HILAR REGION: There is redemonstration of a spiculated right upper lobe mass measuring 3.9 x 3.7 cm axial image 79. Max SUV is 5.75. No additional areas of suspicious hypermetabo lic uptake. ABDOMEN AND PELVIS: Normal excretion is present. Mild nonspecific uptake throughout the liver. No adr enal masses. No suspicious hypermetabolic uptake noted. OSSEOUS STRUCTURES: No areas of suspicious hypermetabolic uptake. OTHER CT: Moderate calcified plaque left greater than the right carotid bulb extending into proximal internal carotid artery. Mild cardiomegaly with single lead pacemaker. Moderate to severe three-vessel coronary artery calcifi cation. Mild underlying emphysematous change redemonstrated. Enlarged right and left pulmonary arteri es. CT findings consistent with underlying pulmonary artery hypertension. Cortical thinning both kidneys consistent with product of chronic medical renal disease. Diverticula in the left and sigmoid colon. Mild to moderately distended bladder with abnormal lobulation and mild wall thickening and trabeculation. Enlarged prostate gland consistent with BPH. IMPRESSION: There is abnormal hypermetabolic uptake strongly suspicious for malignancy in the just un alli 4 cm right upper lobe spiculated mass. No suspicious thoracic adenopathy or metastatic disease. TNM staging: T2a, N0, M0 AJCC staging: IB
== END | disposition home or self-care (01) ==
LOC: RADPETMAIN 16:22
PROVIDERS: ATTEND Internal Medicine Critical Care Medicine
DX: R91.8 Other nonspecific abnormal finding of lung field (principal)
CPT/HCPCS: 78815; A9552

== ENCOUNTER → 2020-10-21 | Outpatient (CLI) | payer MEDICARE ==
--- NOTE | 2020-10-21 15:59 | CT ---
EXAMINATION TYPE: CT chest wo con DATE OF EXAM: 10/21/2020 COMPARISON: CT chest June 10, 2020 and PET/CT July 05, 2020 HISTORY: Hx lung ca. Post-radiation follow-up. Pt not reporting any current issues. Personal hx tobac co use CT DLP: 545 mGycm. Automated Exposure Control for Dose Reduction was Utilized. TECHNIQUE: CT scan of the thorax is performed without IV contrast. FINDINGS: LUNGS: Background Moderate underlying emphysematous changes redemonstrated. Spiculated 2.9 x 2.5 cm r ight upper lobe nodule on current study axial image 17 diminished in size from prior studies. Slightl y elevated left hemidiaphragm redemonstrated. No new nodules or masses. No pleural effusion or pneumo thorax identified. MEDIASTINUM: Lack of IV contrast is noted to limit evaluation for mediastinal and especially hilar ad enopathy. There are no definitive new greater than 1 cm hilar or mediastinal lymph nodes. Tiny perica rdial effusion is seen on current study. Single lead pacemaker redemonstrated. Coronary artery calcif ication again seen. OTHER: [id number] multilevel spurring in the spine is redemonstrated. IMPRESSION: Partial positive treatment response with decreased size. No new nodules or masses identif ied.
== END | disposition home or self-care (01) ==
LOC: RADCTMAIN 15:23
PROVIDERS: ATTEND Radiology Radiation Oncology
DX: C34.11 Malignant neoplasm of upper lobe, right bronchus or lung (principal); Z87.891 Personal history of nicotine dependence; Z98.890 Other specified postprocedural states
CPT/HCPCS: 71250

== ENCOUNTER → 2021-02-04 | Outpatient (CLI) | payer MEDICARE ==
--- NOTE | 2021-02-04 11:07 | CT ---
EXAMINATION TYPE: CT chest wo con DATE OF EXAM: 02/04/2021 COMPARISON: Chest CT October 21, 2020 and older studies. PET/CT July 05, 2020 HISTORY: Neoplasm of right upper lobe diagnosed 2019, follow up, status post radiation treatment. CT DLP: 418.7 mGycm. Automated Exposure Control for Dose Reduction was Utilized. TECHNIQUE: CT scan of the thorax is performed without IV contrast. FINDINGS: LUNGS: Background mild to moderate underlying emphysematous change is redemonstrated. The spiculated neoplasm right upper lobe measures 3.1 x 2.1 cm current study image 15 stable or slightly less promin ent in size versus most recent prior CT study. Surrounding groundglass opacity likely reflects posttr eatment change. Mild reticulation and scarring in the lung bases just above the diaphragms. No new no dules or masses. No pleural effusion or pneumothorax seen bilaterally. MEDIASTINUM: Lack of IV contrast is noted to limit evaluation for mediastinal and especially hilar ad enopathy. There are no definitive new greater than 1 cm hilar or mediastinal lymph nodes. No cardio megaly is seen. Trace pericardial effusion is stable. Single lead pacemaker is redemonstrated. Modera te to severe Coronary artery calcification is redemonstrated. OTHER: [id number] calcified plaque of the aorta extends into branch vessels. Osseous structures are demineralized. New diffuse sclerosis L2 vertebra. New suspicious sclerotic les ion left T9 vertebra coronal image 77. Suggestion of additional smaller focal sclerotic areas through out the thoracic vertebra. IMPRESSION: Overall mixed response, stable or perhaps slightly improved appearance to the right upper lung neoplasm. There is however new osseous sclerotic metastatic disease felt present.
== END | disposition home or self-care (01) ==
LOC: RADCTMAIN 10:03
PROVIDERS: ATTEND Radiology Radiation Oncology
DX: C34.11 Malignant neoplasm of upper lobe, right bronchus or lung (principal); C79.51 Secondary malignant neoplasm of bone; J44.9 Chronic obstructive pulmonary disease, unspecified; Z87.891 Personal history of nicotine dependence
CPT/HCPCS: 71250

== ENCOUNTER → 2021-02-14 | Outpatient (CLI) | payer MEDICARE ==
--- NOTE | 2021-02-14 14:23 | PE ---
Nuclear medicine PET/CT HISTORY: Right lung carcinoma, subsequent, C 34.11 Patient received 10.11 mCi F-18 FDG intravenously in delayed scanning was performed from the skull ba se to the mid thighs. Localization and attenuation correction CT scan was performed Chest and neck: The patient's right upper lobe lung mass shows triangular residual density, the spicu lated spherical mass diminished in size compared to prior exam, there is likely residual scarring, th ere is some mild residual uptake of uptake is improved compared to prior exam. There is some associat ed pleural thickening. No pleural or pericardial effusion. There is no cervical or supraclavicular ad enopathy, no mediastinal, axillary, or hilar adenopathy. ABDOMEN: No adrenal mass, no evident liver mass or retroperitoneal adenopathy. There is no ascites. P rostate is enlarged and shows some mild activity. There is some hydronephrosis present within the rig ht kidney, right-sided hydroureter, urine distended bladder. Osseous structures are remarkable for development of diffuse areas of abnormal increased uptake to in clude the spine, pelvis, ribs. There are subtle areas of associated sclerosis present, posterior iliu m on the left shows sclerosis mixed with some, sclerosis is present at the left pubic ramus the level of the symphysis pubis. IMPRESSION: Interval improvement in patient's lung mass, interval development of diffuse bony metasta sis. Right-sided hydronephrosis is indeterminate, there is some uptake associated with prostate gland .
== END | disposition home or self-care (01) ==
LOC: RADPETMAIN 10:42
PROVIDERS: ATTEND Radiology Radiation Oncology
DX: C34.11 Malignant neoplasm of upper lobe, right bronchus or lung (principal); C79.51 Secondary malignant neoplasm of bone; J98.4 Other disorders of lung; N13.30 Unspecified hydronephrosis
CPT/HCPCS: 78815; A9552

== ENCOUNTER 2021-03-11 08:32 | Day surgery (SDC) | payer MEDICARE ==
[2021-03-11 09:11] LABS: Basophils % (A) 1 %; Eosinophils # (A) 0.1 k/uL (0-0.7); Eosinophils % (A) 2 %; HCT 41.1 % (39.0-53.0); Lymphocytes # (A) 1.2 k/uL (1.0-4.8); Lymphocytes % (A) 19 %; MCH 30.9 pg (25.0-35.0); MCHC 31.6 g/dL (31.0-37.0); Mean Platelet Volume 7.3; Monocytes # (A) 0.4 k/uL (0-1.0); Monocytes % (A) 7 %; Neutrophils # (A) 4.3 k/uL (1.3-7.7); Neutrophils % (A) 71 %; Platelet Count 190 k/uL (150-450); RDW 13.6 % (11.5-15.5); WBC 6.1 k/uL (3.8-10.6)
[2021-03-11 09:18] LABS: INR 0.9 (<1.2); Partial Thromboplastin Time 25.7 sec (22.0-30.0); Prothrombin Time 10.1 sec (9.0-12.0)
[2021-03-11 09:26] VITALS: RESP 16; TEMP 98.3
[2021-03-11] MEDS ORDERED: KETAMINE 10 MG/ML 20 ML VIAL ONE (11:05)
[2021-03-11] MEDS ORDERED: diphenhydrAMINE 50 MG/ML 1 ML VIAL ONE (11:05)
[2021-03-11] MEDS ORDERED: MIDAZOLAM 2 MG/2 ML VIAL ONE (11:05)
[2021-03-11] MEDS ORDERED: PROPOFOL 10 MG/ML 20 ML VIAL IV ONE (11:05)
--- NOTE | 2021-03-11 12:48 | CT ---
EXAMINATION TYPE: CT discontinued procedure DATE OF EXAM: 03/11/2021 COMPARISON: PET/CT 02/14/2021 HISTORY: h/o secondary malignant of bone, abnormal PET/CT CT DLP: 2097 mGycm Automated exposure control for dose reduction was used. CT performed through the pelvis for planning purposes. FINDINGS: Patient was sedated by anesthesia. Patient continued to move despite anesthesia, sedation. IMPRESSION: UNABLE TO PERFORM THE PROCEDURE DUE TO PATIENT MOTION.
[2021-03-11 13:40] VITALS: BP 186/88; PULSE 80
== END 2021-03-11 13:42 | disposition home or self-care (01) ==
LOC: RADPROMAIN 08:32
PROVIDERS: ATTEND Radiology Radiation Oncology
DX: D63.0 Anemia in neoplastic disease (principal); C79.51 Secondary malignant neoplasm of bone; C34.11 Malignant neoplasm of upper lobe, right bronchus or lung; Z53.8 Procedure and treatment not carried out for other reasons; Z79.01 Long term (current) use of anticoagulants; I48.91 Unspecified atrial fibrillation; I11.0 Hypertensive heart disease with heart failure; I50.9 Heart failure, unspecified; J44.9 Chronic obstructive pulmonary disease, unspecified; F32.9 Major depressive disorder, single episode, unspecified; K21.9 Gastro-esophageal reflux disease without esophagitis; H91.90 Unspecified hearing loss, unspecified ear; E78.00 Pure hypercholesterolemia, unspecified; H35.30 Unspecified macular degeneration; I49.5 Sick sinus syndrome; Z95.0 Presence of cardiac pacemaker; Z98.890 Other specified postprocedural states; Z97.2 Presence of dental prosthetic device (complete) (partial); Z98.42 Cataract extraction status, left eye; Z98.41 Cataract extraction status, right eye; Z90.6 Acquired absence of other parts of urinary tract; Z79.899 Other long term (current) drug therapy
CPT/HCPCS: 85025; 85610; 85730; 36415; J2250; J1200; J2704; 76380

== ENCOUNTER → 2022-05-01 | Outpatient (CLI) | payer MEDICARE ==
--- NOTE | 2022-05-01 10:50 | CT ---
EXAMINATION TYPE: CT chest wo con CT DLP: 513.4 mGycm, Automated exposure control for dose reduction was used. DATE OF EXAM: 05/01/2022 10:26 AM COMPARISON: Chest radiograph most recent 11/03/2021, CT/PET 02/14/2021 CLINICAL INDICATION:Male, 87 years old with history of C61 MALIGNANT NEOPLASM OF PROSTATE, Prostate C A TECHNIQUE: Multiple axial images were obtained through the chest without IV contrast. Lack of IV or o ral contrast limits evaluation of solid and hollow organ viscera. FINDINGS: LUNGS/ PLEURA: Interval increase in size of right lower lobe pulmonary nodule now with a more solid a ppearance measuring 8 mm on today's exam (series 4 image 36) previously this area was more reticular without appreciable solid component on 11/03/2021. Persistent posttreatment changes to the right upper lobe with stable right upper lobe irregular shape d mass measuring 4.9 x 1.4 cm which felt to be similar size and morphology when given differences in slice selection and axial imaging. On sagittal imaging and is similar morphology. There is mild emphy sema changes seen throughout the lungs. No focal consolidation, pneumothorax or pleural effusion. AIRWAY: Patent and unremarkable. HEART: The heart is mildly enlarged for size. There is cardiac AICD with leads terminating in the rig ht ventricle. Coronary artery atherosclerosis is present. MEDIASTINUM: No gross evidence of adenopathy. VASCULATURE: No aortic aneurysm. MUSCULOSKELETAL: No evidence for acute fracture. There is scattered osseous sclerotic metastatic dise ase most pronounced within the spine vertebral bodies. Multiple bilateral old rib fractures. SOFT TISSUES/LYMPH NODES: Unremarkable. LOWER NECK: No significant findings. UPPER ABDOMEN: Scattered clonic diverticula. Bilateral dilation of the renal collecting systems which is similar to prior. IMPRESSION: 1. Interval increase in size of right lower lobe pulmonary nodule measuring up to 8 mm concerning fo r malignancy. Previously this area had a focal more reticular appearance. 2. Similar appearance of right upper lobe scarring/post treatment changes. 3. Similar osseous metastatic disease throughout the visualized osseous structures including the spi ne Stable appearance of right upper lobe post treatment changes. 4. Emphysema changes.
== END | disposition home or self-care (01) ==
LOC: RADCTMAIN 10:06
PROVIDERS: ATTEND Radiology Radiation Oncology
DX: C61 Malignant neoplasm of prostate (principal); C79.51 Secondary malignant neoplasm of bone; C34.11 Malignant neoplasm of upper lobe, right bronchus or lung; J43.9 Emphysema, unspecified
CPT/HCPCS: 71250

== ENCOUNTER → 2022-08-31 | Outpatient (CLI) | payer MEDICARE ==
--- NOTE | 2022-08-31 16:03 | CT ---
EXAMINATION TYPE: CT chest wo con DATE OF EXAM: 08/31/2022 COMPARISON: 05/01/2022, 11/03/2021 HISTORY: 87-year-old male C3 4.1, Follow-up lung ca. C34.11 MALIGNANT NEOPLASM OF UPPER LOBE, RIGHT BRO TECHNIQUE: Contiguous axial scanning of the chest without IV contrast. Coronal and sagittal reconstru ctions performed. CT DLP: 651 mGycm Automated exposure control for dose reduction was used. FINDINGS: Left anterior chest wall pacemaker generator with right atrial and right ventricular leads. Heart normal size without pericardial effusion. Three-vessel coronary artery calcifications are prese nt and are a marker for coronary artery disease. Mild to moderate scattered calcifications throughout the thoracic aorta with conventional arch vessel branching anatomy. A large caliber to the main right and left pulmonary arteries up to 2.9 cm suggesting underlying pulm onary arterial hypertension. There is a low AP window lymph node measuring 1.2 cm currently. This measured 1.0 cm on 05/01/2022 and 8 mm on 11/03/2021. No other thoracic lymphadenopathy seen. Focal bandlike thickening right upper lobe measuring 5.5 x 1.3 cm versus 4.8 x 1.4 cm shows no clear increasing soft tissue density. Previous 8mm right midlung pulmonary nodule currently measures 1.2 cm and is viewed with some suspici on. Background mild to moderate emphysematous change. No consolidation or pleural effusion. Visualized upper abdomen shows fullness of the bilateral renal collecting systems, similar to prior e xams. Lobulated contour to the lower pole of the spleen redemonstrated. Bones: Some healing callus along the left lateral sixth rib. Ununited left lateral second rib fractur e. Subtle incompletely united left lateral third rib fracture. Some chronic right lateral rib fractur e deformities also noted. [facility] mid thoracic spine. Diffuse heterogeneity of the osseous structures wi th mixed sclerosis and lucencies suggesting diffuse osseous metastatic disease, similar prior studies . IMPRESSION: 1. STABLE BANDLIKE THICKENING COMPATIBLE WITH SITE OF TREATED DISEASE IN THE RIGHT UPPER LOBE. 2. VERY GRADUAL ENLARGEMENT OF A LOW AP WINDOW LYMPH NODE CURRENTLY AT 1.2 CM (VERSUS 1.0 CM ON 2021 AND 8 MM ON 11/03/2021). THIS MAY BE A REACTIVE NODE. CONTINUED SURVEILLANCE TO EXCLUDE EARLY PRO GRESSION. 3. A SUSPICIOUS 1.2 CM RIGHT MIDLUNG PULMONARY NODULE PREVIOUSLY MEASURED 8 MM. A METACHRONOUS LUNG P RIMARY IS NOT EXCLUDED. 4. KNOWN DIFFUSE OSSEOUS METASTATIC DISEASE APPEARS SIMILAR. SOME LEFT UPPER RIB FRACTURES APPEAR TO HAVE DEVELOPED SINCE 05/01/2022. LIKELY SUBACUTE OR EVEN CHRONIC. 5. 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 CAD WITH THREE-VESSEL CORONARY A RTERY CALCIFICATIONS. 6. SIMILAR FULLNESS OF THE BILATERAL RENAL COLLECTING SYSTEMS. CORRELATE WITH PATIENT'S KIDNEY FUNCTI ON.
== END | disposition home or self-care (01) ==
LOC: RADCTMAIN 12:02
PROVIDERS: ATTEND Radiology Radiation Oncology
DX: C34.11 Malignant neoplasm of upper lobe, right bronchus or lung (principal); C79.51 Secondary malignant neoplasm of bone; C61 Malignant neoplasm of prostate; S22.42XA Multiple fractures of ribs, left side, initial encounter for closed fracture; J43.9 Emphysema, unspecified; I27.21 Secondary pulmonary arterial hypertension; I25.10 Atherosclerotic heart disease of native coronary artery without angina pectoris; R59.0 Localized enlarged lymph nodes; Z87.891 Personal history of nicotine dependence
CPT/HCPCS: 71250

== ENCOUNTER 2022-09-14 22:03 | Inpatient (IN) | payer MEDICARE ==
[2022-09-14] MEDS ORDERED: SODIUM CHLORIDE 0.9% 500 ML 500 ML IV STA (23:32)
[2022-09-15 00:20] LABS: Anisocytosis Moderate; HCT 20.8 % (39.0-53.0); Hypochromasia Marked; MCH 30.4 pg (25.0-35.0); MCHC 32.1 g/dL (31.0-37.0); Macrocytosis Slight; Mean Platelet Volume 13.5; Poikilocytosis Moderate; RDW 21.5 % (11.5-15.5)
[2022-09-15 00:33] LABS: INR 1.2 (<1.2); Partial Thromboplastin Time 25.5 sec (22.0-30.0); Prothrombin Time 12.6 sec (9.0-12.0)
[2022-09-15 00:47] LABS: Albumin 3.2 g/dL (3.5-5.0); Calcium 6.7 mg/dL (8.4-10.2); Magnesium 2.7 mg/dL (1.6-2.3); Potassium 5.9 mmol/L (3.5-5.1); Total Bilirubin 0.6 mg/dL (0.2-1.3); Total Protein 5.7 g/dL (6.3-8.2)
[2022-09-15] MEDS ORDERED: TRANEXAMIC ACID 1,000 MG/10 ML VIAL MISCELLANE ONE (00:54)
[2022-09-15 01:17] LABS: HGB 6.7 gm/dL (13.0-17.5); MCV 94.5 fL (80.0-100.0)
--- NOTE | 2022-09-15 01:54 | CT ---
EXAMINATION TYPE: CT brain wo con DATE OF EXAM: 09/15/2022 COMPARISON: 01/11/2014 HISTORY: Weakness. Chest and upper back pain, pt c/o of disorientation CT DLP: 1141.1 mGycm Automated exposure control for dose reduction was used. Images of the brain obtained with no contrast. There is cerebral cortical atrophy. There is no mass effect or midline shift. No evidence of intracra nial hemorrhage. Calvarium is intact. The skull base is intact. There is normal aeration of the masto id sinuses. IMPRESSION: Moderate cerebral atrophy. No acute intracranial abnormality. There is not a significant change maikol red to old exam.
[2022-09-15 02:17] LABS: Band Neutrophils % 10 %; Metamyelocytes % 3 %; Neutrophils % (M) 41 %; Nucleated Red Blood Cells 52 /100 WBC (0-0); Total Cells Counted 200
[2022-09-15 02:18] LABS: Eosinophils # (M) 0.32 k/uL (0-0.7); Lymphocytes # (M) 3.12 k/uL (1.0-4.8); Metamyelocytes # (M) 0.24 k/uL (0); Monocytes # (M) 0.32 k/uL (0-1.0)
--- NOTE | 2022-09-15 02:25 | CT ---
EXAMINATION TYPE: CT abdomen pelvis wo con DATE OF EXAM: 09/15/2022 COMPARISON: 02/14/2021 HISTORY: WEAKNESS. H/O LUNG & PROSTATE CA CT DLP: 696.1 mGycm Automated exposure control for dose reduction was used. Images obtained from the diaphragm to the floor the pelvis with no contrast. There is mild subsegmental atelectasis at the posterior lung bases. No pleural effusion. Heart size i s normal. No pericardial effusion. Liver and spleen are intact. No pancreatic mass. Gallbladder is in tact. The bile ducts are nondilated. The stomach is intact. There is no adrenal mass. Kidneys have normal size. There is bilateral hydronephrosis and hydroureter . Ureters are dilated down to the bladder. Bladder distends smoothly. No inguinal hernia. No evidence of a pelvic mass. No free fluid in the pelvis. There is likely prostate surgery. There is atherosclerotic vascular calcification. There is no mesenteric edema. No ascites or free air . No sign of a bowel obstruction. There are numerous large bowel diverticula. No diverticulitis. Appe ndix not seen. No significant thickened appendix. The lumbar vertebra appear to have normal alignment. No compression fracture. There is patchy osteosc lerosis in the lumbar spine and bony pelvis and consistent with osseous metastatic disease. IMPRESSION: Bilateral hydronephrosis and hydroureter which is unchanged on the right side and increased on the le ft side compared to old exams no significant renal atrophy. Mild atelectasis at the posterior lung bases. Osseous metastatic disease. Colonic diverticulosis without diverticulitis.
[2022-09-15 02:31] LABS: Polychromasia Present
[2022-09-15 02:33] LABS: Platelet Count 57 k/uL (150-450); RBC Fragments Present
--- NOTE | 2022-09-15 02:35 | ED ---
Weakness HPI - General Chief complaint: Weakness Stated complaint: Weakness Time Seen by Provider: 09/14/22 22:15 Source: patient, EMS Mode of arrival: EMS - History of Present Illness Initial comments: 87-year-old male with past history of lung cancer, metastatic prostate cancer, A. fib on eliquis who presents to the emergency department with generalized weakness. His daughter is at bedside and provides the history. States that the patient has been progressively declining over the past 6 months. He was previously on hormone treatment for his prostate cancer and was doing really well. He then stopped responding to the treatments and was switched over to Xtandi under the direction of Dr. Cornejo. He started this medication in July. Daughter states he's had a significant decline. He refuses to tolerate any food or drink by mouth. She has bought him protein drinks however the patient continues to refuse. No vomiting. They saw Dr. Cornejo 10 days ago and labora may studies were completed. He had an saline infusion in the clinic and the daughter states that this did perk him up. Over the past couple of days the patient has been declining again. He had a nosebleed since which has been intermittent. He does not wear oxygen at home. He is on Eliquis for which they contacted Dr. Cornejo and he recommended that they stop it. Today was the first day that the patient did not take the medication. Patient was extremely weak at home. The patient's other daughter thought that he was slightly confused and therefore called EMS. Patient arrives, alert and oriented. Denies any pain to me. No other alleviating, precipitating or modifying factors - Related Data Home Medications Medication Instructions Recorded Confirmed ALPRAZolam [Xanax] 0.25 mg PO DAILY PRN 03/10/16 09/15/22 Atorvastatin Calcium [Lipitor] 40 mg PO HS 03/10/16 09/15/22 Pantoprazole Sodium [Protonix] 40 mg PO HS 03/10/16 09/15/22 Ezetimibe [Zetia] 10 mg PO HS 08/24/19 09/15/22 Metoprolol Succinate (ER) [Toprol 12.5 mg PO DAILY 08/24/19 09/15/22 XL] traZODone HCL 50 - 100 mg PO HS PRN 08/24/19 09/15/22 Furosemide [Lasix] 40 mg PO Q2D 03/03/21 09/15/22 Ascorbic Acid [Vitamin C] 500 mg PO DAILY 03/11/21 09/15/22 Cholecalciferol [Vitamin D3 (25 50 mcg PO DAILY 03/11/21 09/15/22 Mcg = 1000 Iu)] Ferrous Sulfate [Iron (65 MG 325 mg PO DAILY 03/11/21 09/15/22 Elemental)] Magnesium 500 mg PO DAILY 03/11/21 09/15/22 Multivitamins, Thera [Multivitamin 1 tab PO DAILY 03/11/21 09/15/22 (formulary)] Acetaminophen-Codeine 300-30mg 1 tab PO QID PRN 09/15/22 09/15/22 [Tylenol w/codeine #3] Furosemide [Lasix] 20 mg PO Q2D 09/15/22 09/15/22 Lorecet 5/300 1 tab PO QID PRN 09/15/22 09/15/22 Megestrol [Megace] 800 mg PO DAILY 09/15/22 09/15/22 Midodrine HCl [ProAmantine] 2.5 mg PO DIRECTED 09/15/22 09/15/22 Sodium Bicarbonate Tab 650 mg PO BID 09/15/22 09/15/22 Previous Rx's Medication Instructions Recorded Acetaminophen Tab [Tylenol] 650 mg PO Q6HR PRN tab 09/18/22 Ferrous Sulfate [Iron (65 MG 325 mg PO BID tab 09/18/22 Elemental)] cefUROXime axetiL [Cefuroxime] 500 mg PO BID 5 Days #10 tab 09/18/22 Allergies Allergy/AdvReac Type Severity Reaction Status Date / Time No Known Allergies Allergy Verified 09/15/22 08:39 Review of Systems ROS Statement: Those systems with pertinent positive or pertinent negative responses have been documented in the HPI. ROS Other: All systems not noted in ROS Statement are negative. Past Medical History Past Medical History: Atrial Fibrillation, Cancer, GERD/Reflux, Hearing Disorder / Deafness, Hyperlipidemia, Hypertension Additional Past Medical History / Comment(s): elevated PSA - following with dr burger, macular degeneration History of Any Multi-Drug Resistant Organisms: None Reported Past Surgical History: Bladder Surgery, Hernia Repair, Pacemaker Additional Past Surgical History / Comment(s): rodolfo cataract surgery Past Anesthesia/Blood Transfusion Reactions: No Reported Reaction Type of Cardiac Device: Permanent Pacemaker Device Placement Date:: 2018 Past Psychological History: Depression Smoking Status: Former smoker Past Alcohol Use History: Daily Past Drug Use History: None Reported - Past Family History Father Family Medical History: Cancer Additional Family Medical History / Comment(s): prostate - passed in 60's Mother Family Medical History: Myocardial Infarction ([place]) General Exam General appearance: alert, in no apparent distress, lethargic Head exam: Present: atraumatic, normocephalic, normal inspection Eye exam: Present: normal appearance, PERRL, EOMI. Absent: scleral icterus, conjunctival injection, periorbital swelling ENT exam: Present: mucous membranes dry, other (epistaxis from right nare. clotted blood in posterior pharynx) Neck exam: Present: normal inspection. Absent: tenderness, meningismus, lymphadenopathy Respiratory exam: Present: normal lung sounds bilaterally. Absent: respiratory distress, wheezes, rales, rhonchi, stridor Cardiovascular Exam: Present: normal rhythm, tachycardia, normal heart sounds. Absent: systolic murmur, diastolic murmur, rubs, gallop, clicks GI/Abdominal exam: Present: soft, normal bowel sounds. Absent: distended, tenderness, guarding, rebound, rigid Extremities exam: Present: normal inspection, full ROM, normal capillary refill. Absent: tenderness, pedal edema, joint swelling, calf tenderness Back exam: Present: normal inspection Neurological exam: Present: alert, oriented X3, CN II-XII intact Psychiatric exam: Present: normal affect, normal mood Skin exam: Present: warm, dry, intact, normal color. Absent: rash Course Vital Signs 09/14/22 09/14/22 09/15/22 22:11 23:18 00:03 Temperature 97.2 F L Pulse Rate 111 H 101 H 101 H Pulse Rate [ [facility] ] Respiratory 20 17 18 Rate Blood Pressure 122/57 104/52 104/57 Blood Pressure [Right Arm] O2 Sat by Pulse 97 97 95 Oximetry 09/15/22 09/15/22 09/15/22 03:25 03:47 04:01 Temperature 98.2 F Pulse Rate 109 H 102 H 107 H Pulse Rate [ [facility] ] Respiratory 20 18 16 Rate Blood Pressure 111/54 104/63 Blood Pressure [Right Arm] O2 Sat by Pulse 93 L 95 Oximetry 09/15/22 09/15/22 09/15/22 04:12 04:50 04:59 Temperature 98.2 F 98.1 F Pulse Rate 107 H 109 H 105 H Pulse Rate [ [facility] Director ] Respiratory 16 16 16 Rate Blood Pressure 101/53 107/42 100/50 Blood Pressure [Right Arm] O2 Sat by Pulse 95 96 94 L Oximetry 09/15/22 09/15/22 09/15/22 05:19 05:52 05:54 Temperature 98.1 F 98.1 F Pulse Rate 104 H 104 H 104 H Pulse Rate [ [facility] ] Respiratory 16 16 16 Rate Blood Pressure 101/61 105/50 105/50 Blood Pressure [Right Arm] O2 Sat by Pulse 94 L 94 L 94 L Oximetry 09/15/22 09/15/22 09/15/22 08:26 08:39 08:53 Temperature 99.2 F Pulse Rate 102 H Pulse Rate [ 106 H 106 H [facility] ] Respiratory 18 20 20 Rate Blood Pressure 106/51 Blood Pressure 114/62 [Right Arm] O2 Sat by Pulse 95 94 L Oximetry 09/15/22 09/15/22 11:15 13:02 Temperature Pulse Rate Pulse Rate [ 106 H 110 H [facility] ] Respiratory 18 Rate Blood Pressure Blood Pressure 98/64 [Right Arm] O2 Sat by Pulse 93 L Oximetry EKG Findings - EKG Comments: EKG Findings:: EKG demonstrates a regular rhythm with a rate of 101. QRS 97. QTC of 407. No identifiable T waves EKG interpreted by myself. No acute ST segment elevations or depressions Medical Decision Making - Medical Decision Making Upon arrival patient was placed in room 16. A thorough history and physical exam was performed. Peripheral IV is established. Patient placed on continuous pulse ox and cardiac monitoring. He is given a 500 mL fluid bolus followed by 75 mL per hour. Laboratory studies are conducted which are remarkable for a hemoglobin of 6.7. Platelets are 57. Potassium 5.9. Creatinine is up to 2.6. Troponin 0.043. BNP 9980. Urinalysis does demonstrate infection. Influenza A and B are not detected. Patient is typed and screened. He will be given a unit of blood for which the patient is consented to the procedure. Patient continues to have current epistaxis at this time. I did use TX a soaked on a cotton pledget which was allowed to remain in the patient's nose for 15 minutes. This is then removed. I did cauterize a small area that did have active bleeding. No active bleeding at this time. Creatinine is 2.6 which is up from the patient's previous creatinine level. CT of his abdomen and pelvis was ordered for tomorrow by his oncologist. This is performed today which demonstrates metastatic disease however no other comp cane process. Some hydronephrosis that appears chronic. Patient was retaining urine greater than [address] a Mckeon catheter. There was return of approximately 800 mL. This is sent for urinalysis which demonstrates large leukocyte esterase, 14 red blood cells, greater than 182 white blood cells. He was given a dose of Rocephin for infection. I did recommend admission for fluid hydration, blood infusion and treatment for UTI. I spoke with the patient's daughter and the patient was agreeable to this treatment plan. I spoke with Joanna from [facility] who agreed to admit the patient. He remained in stable condition awaiting a bed on the floor - Lab Data Result diagrams: 09/16/22 08:57 09/16/22 08:57 Lab Results 09/14/22 09/14/22 09/14/22 Range/Units 23:56 23:56 23:56 WBC 8.0 (3.8-10.6) k/uL RBC 2.20 L (4.30-5.90) m/uL Hgb 6.7 L* (13.0-17.5) gm/dL Hct 20.8 L (39.0-53.0) % MCV 94.5 D (80.0-100.0) fL MCH 30.4 (25.0-35.0) pg MCHC 32.1 (31.0-37.0) g/dL RDW 21.5 H (11.5-15.5) % Plt Count 57 L (150-450) k/uL MPV 13.5 Neutrophils % (Manual) 41 % Band Neuts % (Manual) 10 % Lymphocytes % (Manual) 39 % Monocytes % (Manual) 4 % Eosinophils % (Manual) 4 % Metamyelocytes % 3 % Neutrophils # (Manual) 4.00 (1.3-7.7) k/uL Lymphocytes # (Manual) 3.12 (1.0-4.8) k/uL Monocytes # (Manual) 0.32 (0-1.0) k/uL Eosinophils # (Manual) 0.32 (0-0.7) k/uL Metamyelocytes # (Man) 0.24 H (0) k/uL Nucleated RBCs 52 H (0-0) /100 WBC Manual Slide Review Performed Polychromasia Present Hypochromasia Marked Poikilocytosis Moderate Anisocytosis Moderate Macrocytosis Slight Fragmented RBCs Present PT 12.6 H (9.0-12.0) sec INR 1.2 H (<1.2) APTT 25.5 (22.0-30.0) sec Sodium 138 (137-145) mmol/L Potassium 5.9 H (3.5-5.1) mmol/L Chloride 113 H (98-107) mmol/L Carbon Dioxide 15 L (22-30) mmol/L Anion Gap 10 mmol/L BUN 80 H (9-20) mg/dL Creatinine 2.61 H (0.66-1.25) mg/dL Est GFR (CKD-EPI)AfAm 24 (>60 ml/min/1.73 sqM) Est GFR (CKD-EPI)NonAf 21 (>60 ml/min/1.73 sqM) Glucose 107 H (74-99) mg/dL Plasma Lactic Acid Venancio (0.7-2.0) mmol/L Calcium 6.7 L (8.4-10.2) mg/dL Magnesium 2.7 H (1.6-2.3) mg/dL Total Bilirubin 0.6 (0.2-1.3) mg/dL AST 63 H (17-59) U/L ALT 11 (4-49) U/L Alkaline Phosphatase 315 H (38-126) U/L Troponin I (0.000-0.034) ng/mL NT-Pro-B Natriuret Pep pg/mL Total Protein 5.7 L (6.3-8.2) g/dL Albumin 3.2 L (3.5-5.0) g/dL Urine Color Urine Appearance (Clear) Urine pH (5.0-8.0) Ur Specific Mayer (1.001-1.035) Urine Protein (Negative) Urine Glucose (UA) (Negative) Urine Ketones (Negative) Urine Blood (Negative) Urine Nitrite (Negative) Urine Bilirubin (Negative) Urine Urobilinogen (<2.0) mg/dL Ur Leukocyte Esterase (Negative) Urine RBC (0-5) /hpf Urine WBC (0-5) /hpf Urine WBC Clumps (None) /hpf Urine Bacteria (None) /hpf Influenza Type A RNA (Not Detectd) Influenza Type B (PCR) (Not Detectd) Blood Type Blood Type Confirm Blood Type Recheck Bld Type Recheck Status Antibody Screen Crossmatch Spec Expiration Date 09/14/22 09/14/22 09/14/22 Range/Units 23:56 23:56 23:56 WBC (3.8-10.6) k/uL RBC (4.30-5.90) m/uL Hgb (13.0-17.5) gm/dL Hct (39.0-53.0) % MCV (80.0-100.0) fL MCH (25.0-35.0) pg MCHC (31.0-37.0) g/dL RDW (11.5-15.5) % Plt Count (150-450) k/uL MPV Neutrophils % (Manual) % Band Neuts % (Manual) % Lymphocytes % (Manual) % Monocytes % (Manual) % Eosinophils % (Manual) % Metamyelocytes % % Neutrophils # (Manual) (1.3-7.7) k/uL Lymphocytes # (Manual) (1.0-4.8) k/uL Monocytes # (Manual) (0-1.0) k/uL Eosinophils # (Manual) (0-0.7) k/uL Metamyelocytes # (Man) (0) k/uL Nucleated RBCs (0-0) /100 WBC Manual Slide Review Polychromasia Hypochromasia Poikilocytosis Anisocytosis Macrocytosis Fragmented RBCs PT (9.0-12.0) sec INR (<1.2) APTT (22.0-30.0) sec Sodium (137-145) mmol/L Potassium (3.5-5.1) mmol/L Chloride (98-107) mmol/L Carbon Dioxide (22-30) mmol/L Anion Gap mmol/L BUN (9-20) mg/dL Creatinine (0.66-1.25) mg/dL Est GFR (CKD-EPI)AfAm (>60 ml/min/1.73 sqM) Est GFR (CKD-EPI)NonAf (>60 ml/min/1.73 sqM) Glucose (74-99) mg/dL Plasma Lactic Acid Venancio 1.5 (0.7-2.0) mmol/L Calcium (8.4-10.2) mg/dL Magnesium (1.6-2.3) mg/dL Total Bilirubin (0.2-1.3) mg/dL AST (17-59) U/L ALT (4-49) U/L Alkaline Phosphatase (38-126) U/L Troponin I 0.043 H* (0.000-0.034) ng/mL NT-Pro-B Natriuret Pep 9980 pg/mL Total Protein (6.3-8.2) g/dL Albumin (3.5-5.0) g/dL Urine Color Urine Appearance (Clear) Urine pH (5.0-8.0) Ur Specific Mayer (1.001-1.035) Urine Protein (Negative) Urine Glucose (UA) (Negative) Urine Ketones (Negative) Urine Blood (Negative) Urine Nitrite (Negative) Urine Bilirubin (Negative) Urine Urobilinogen (<2.0) mg/dL Ur Leukocyte Esterase (Negative) Urine RBC (0-5) /hpf Urine WBC (0-5) /hpf Urine WBC Clumps (None) /hpf Urine Bacteria (None) /hpf Influenza Type A RNA (Not Detectd) Influenza Type B (PCR) (Not Detectd) Blood Type Blood Type Confirm Blood Type Recheck Bld Type Recheck Status Antibody Screen Crossmatch Spec Expiration Date 09/15/22 09/15/22 09/15/22 Range/Units 00:01 02:22 03:02 WBC (3.8-10.6) k/uL RBC (4.30-5.90) m/uL Hgb (13.0-17.5) gm/dL Hct (39.0-53.0) % MCV (80.0-100.0) fL MCH (25.0-35.0) pg MCHC (31.0-37.0) g/dL RDW (11.5-15.5) % Plt Count (150-450) k/uL MPV Neutrophils % (Manual) % Band Neuts % (Manual) % Lymphocytes % (Manual) % Monocytes % (Manual) % Eosinophils % (Manual) % Metamyelocytes % % Neutrophils # (Manual) (1.3-7.7) k/uL Lymphocytes # (Manual) (1.0-4.8) k/uL Monocytes # (Manual) (0-1.0) k/uL Eosinophils # (Manual) (0-0.7) k/uL Metamyelocytes # (Man) (0) k/uL Nucleated RBCs (0-0) /100 WBC Manual Slide Review Polychromasia Hypochromasia Poikilocytosis Anisocytosis Macrocytosis Fragmented RBCs PT (9.0-12.0) sec INR (<1.2) APTT (22.0-30.0) sec Sodium (137-145) mmol/L Potassium (3.5-5.1) mmol/L Chloride (98-107) mmol/L Carbon Dioxide (22-30) mmol/L Anion Gap mmol/L BUN (9-20) mg/dL Creatinine (0.66-1.25) mg/dL Est GFR (CKD-EPI)AfAm (>60 ml/min/1.73 sqM) Est GFR (CKD-EPI)NonAf (>60 ml/min/1.73 sqM) Glucose (74-99) mg/dL Plasma Lactic Acid Venancio (0.7-2.0) mmol/L Calcium (8.4-10.2) mg/dL Magnesium (1.6-2.3) mg/dL Total Bilirubin (0.2-1.3) mg/dL AST (17-59) U/L ALT (4-49) U/L Alkaline Phosphatase (38-126) U/L Troponin I (0.000-0.034) ng/mL NT-Pro-B Natriuret Pep pg/mL Total Protein (6.3-8.2) g/dL Albumin (3.5-5.0) g/dL Urine Color Yellow Urine Appearance Turbid (Clear) Urine pH 6.0 (5.0-8.0) Ur Specific Mayer 1.017 (1.001-1.035) Urine Protein 1+ H (Negative) Urine Glucose (UA) Negative (Negative) Urine Ketones Negative (Negative) Urine Blood Moderate H (Negative) Urine Nitrite Negative (Negative) Urine Bilirubin Negative (Negative) Urine Urobilinogen <2.0 (<2.0) mg/dL Ur Leukocyte Esterase Large H (Negative) Urine RBC 14 H (0-5) /hpf Urine WBC >182 H (0-5) /hpf Urine WBC Clumps Many H (None) /hpf Urine Bacteria Rare H (None) /hpf Influenza Type A RNA Not Detected (Not Detectd) Influenza Type B (PCR) Not Detected (Not Detectd) Blood Type O Positive Blood Type Confirm Blood Type Recheck No Previous Record Bld Type Recheck Status CABO Indicated Antibody Screen NEGATIVE Crossmatch See Detail Spec Expiration Date 09/18/2022 - 230109/15/22 Range/Units 03:07 WBC (3.8-10.6) k/uL RBC (4.30-5.90) m/uL Hgb (13.0-17.5) gm/dL Hct (39.0-53.0) % MCV (80.0-100.0) fL MCH (25.0-35.0) pg MCHC (31.0-37.0) g/dL RDW (11.5-15.5) % Plt Count (150-450) k/uL MPV Neutrophils % (Manual) % Band Neuts % (Manual) % Lymphocytes % (Manual) % Monocytes % (Manual) % Eosinophils % (Manual) % Metamyelocytes % % Neutrophils # (Manual) (1.3-7.7) k/uL Lymphocytes # (Manual) (1.0-4.8) k/uL Monocytes # (Manual) (0-1.0) k/uL Eosinophils # (Manual) (0-0.7) k/uL Metamyelocytes # (Man) (0) k/uL Nucleated RBCs (0-0) /100 WBC Manual Slide Review Polychromasia Hypochromasia Poikilocytosis Anisocytosis Macrocytosis Fragmented RBCs PT (9.0-12.0) sec INR (<1.2) APTT (22.0-30.0) sec Sodium (137-145) mmol/L Potassium (3.5-5.1) mmol/L Chloride (98-107) mmol/L Carbon Dioxide (22-30) mmol/L Anion Gap mmol/L BUN (9-20) mg/dL Creatinine (0.66-1.25) mg/dL Est GFR (CKD-EPI)AfAm (>60 ml/min/1.73 sqM) Est GFR (CKD-EPI)NonAf (>60 ml/min/1.73 sqM) Glucose (74-99) mg/dL Plasma Lactic Acid Venancio (0.7-2.0) mmol/L Calcium (8.4-10.2) mg/dL Magnesium (1.6-2.3) mg/dL Total Bilirubin (0.2-1.3) mg/dL AST (17-59) U/L ALT (4-49) U/L Alkaline Phosphatase (38-126) U/L Troponin I (0.000-0.034) ng/mL NT-Pro-B Natriuret Pep pg/mL Total Protein (6.3-8.2) g/dL Albumin (3.5-5.0) g/dL Urine Color Urine Appearance (Clear) Urine pH (5.0-8.0) Ur Specific Mayer (1.001-1.035) Urine Protein (Negative) Urine Glucose (UA) (Negative) Urine Ketones (Negative) Urine Blood (Negative) Urine Nitrite (Negative) Urine Bilirubin (Negative) Urine Urobilinogen (<2.0) mg/dL Ur Leukocyte Esterase (Negative) Urine RBC (0-5) /hpf Urine WBC (0-5) /hpf Urine WBC Clumps (None) /hpf Urine Bacteria (None) /hpf Influenza Type A RNA (Not Detectd) Influenza Type B (PCR) (Not Detectd) Blood Type Blood Type Confirm O Positive Blood Type Recheck Bld Type Recheck Status Antibody Screen Crossmatch Spec Expiration Date Critical Care Time Critical Care Time: Yes Critical Care Time: 35 minutes for transfusion of blood products Disposition Clinical Impression: Anemia, Epistaxis, Tachycardia, Bicytopenia, Prostate cancer metastatic to bone Disposition: ADMITTED IP TO THIS HOSP Condition: Serious Is patient prescribed a controlled substance at d/c from ED?: No Time of Disposition: :26 Decision to Admit Reason: Admit from EC Decision Date: 09/15/22 Decision Time: 03:26
[2022-09-15 03:14] LABS: Appearance,Urine Turbid (Clear); Bacteria,Urine Rare /hpf; Bilirubin,Urine Negative (Negative); Blood,Urine Moderate (Negative); Color,Urine Yellow; Glucose,Urine (UA) Negative (Negative); Ketones,Urine Negative (Negative); Leukocyte Esterase,Urine Large (Negative); Nitrite,Urine Negative (Negative); Protein,Urine 1+ (Negative); RBC,Urine 14 /hpf (0-5); Specific Gravity,Urine 1.017 (1.001-1.035); Urobilinogen,Urine <2.0 mg/dL (<2.0); WBC,Urine >182 /hpf (0-5)
[2022-09-15] MEDS ORDERED: NALOXONE 0.4 MG/ML 1 ML VIAL IV PRN (03:26)
[2022-09-15] MEDS ORDERED: ACETAMINOPHEN TAB 325 MG TAB PO PRN (03:36)
[2022-09-15] MEDS: SODIUM CHLORIDE 0.9% 1,000 ML IV SCH ×2 (03:52→18:32)
[2022-09-15] MEDS ORDERED: SILVER NITRATE APPLICATOR 1 EACH STICK..EA. TOPICAL STA (04:01)
[2022-09-15] MEDS ORDERED: cefTRIAXone IN SWFI 1,000 MG/10 ML SYRINGE IVP STA (05:16)
--- NOTE | 2022-09-15 09:36 | P.HPIM ---
History of Present Illness This is a pleasant 87 years old male with multiple medical problems including lung cancer, prostate cancer and chronic chest and back pain. His PCP is Dr. rodriguez, urologist Dr. Burger, dairy associate Dr. Alejandro, oncologist Dr. Cornejo Presents because of weakness and disorientation. Patient states that he presents because he felt congested and could not breathe well for the last 2 weeks associated with poor appetite and chest pain. Breasts lower anterior chest wall for the last 2 week 5/10 in severity. Nonradiating pain of his other He also has some cough and phlegm. No nausea vomiting or diarrhea, no abdominal pain, denies blood per in his stool, no black stool and brown in color, no urinary complaint. Mckeon catheter was placed in the emergency room but patient denies dysuria or change in frequency prior to that. No headache or weakness or numbness or dizziness. No slurred speech or blurred vision. Patient denies smoking cigarettes or illicit drugs, uses alcohol occasionally Patient was taken his Eliquis at home, he says also has been taking Motrin prescribed for him several days for his chest pain. on Admission his mildly tachycardic at 105, he is slightly hypoxic 94% on room air. Baseline walks using a walker. Blood pressure currently 114/62 and patient is afebrile. Labs showing normal WBC at 8, hemoglobin low at 6.7, last reading was 7.7 about 6 days ago. Platelet count is 57 INR is 1.2. Creatinine is elevated 2.6 and 2.32 days ago, baseline is 1.0-1.3 Urinalysis is suspicious for infection EKG showing atrial flutter with a rate of 101 CT of the abdomen and pelvis without contrast, bilateral hydronephrosis and hydroureter, unchanged on the right side and increase on the left side. Ureters are dilated down to the bladder. Bladder distance smoothly. No evidence of pelvic mass but there is likely prostate surgery. Patient started on ceftriaxone and IV fluids Review of Systems Review of systems CONSTITUTIONAL: No fever, no malaise, no fatigue. HEENT: No recent visual problems or hearing problems. Denied any sore throat. CARDIOVASCULAR: No orthopnea, PND, no palpitations, no syncope. PULMONARY: No chest wall tenderness, no hemoptysis. GASTROINTESTINAL: No diarrhea, no nausea, no vomiting, no abdominal pain. Normoactive bowel sounds. NEUROLOGICAL: No headaches, no weakness, no numbness. HEMATOLOGICAL: Denies any bruises or petechiae. GENITOURINARY: Denies any burning micturition, frequency, or urgency. MUSCULOSKELETAL/RHEUMATOLOGICAL: Denies any joint pain, swelling, or any muscle pain. ENDOCRINE: Denies any polyuria or polydipsia. Past Medical History Past Medical History: Atrial Fibrillation, Cancer, GERD/Reflux, Hearing Disorder / Deafness, Hyperlipidemia, Hypertension Additional Past Medical History / Comment(s): elevated PSA - following with dr burger, macular degeneration History of Any Multi-Drug Resistant Organisms: None Reported Past Surgical History: Bladder Surgery, Hernia Repair, Pacemaker Additional Past Surgical History / Comment(s): rodolfo cataract surgery Past Anesthesia/Blood Transfusion Reactions: No Reported Reaction Type of Cardiac Device: Permanent Pacemaker Device Placement Date:: 2018 Past Psychological History: Depression Smoking Status: Former smoker Past Alcohol Use History: Daily Past Drug Use History: None Reported - Past Family History Father Family Medical History: Cancer Additional Family Medical History / Comment(s): prostate - passed in 60's Mother Family Medical History: Myocardial Infarction ([place]) Medications and Allergies Home Medications Medication Instructions Recorded Confirmed Type ALPRAZolam [Xanax] 0.25 mg PO DAILY PRN 03/10/16 03/11/21 History Atorvastatin Calcium [Lipitor] 40 mg PO HS 03/10/16 03/11/21 History Pantoprazole Sodium [Protonix] 40 mg PO HS 03/10/16 03/11/21 History Tamsulosin HCl [Flomax] 0.4 mg PO BID 03/10/16 03/11/21 History lisinopriL [Zestril] 10 mg PO HS 03/10/16 03/11/21 History Ezetimibe [Zetia] 10 mg PO HS 08/24/19 03/11/21 History Metoprolol Succinate (ER) [Toprol 12.5 mg PO DAILY 08/24/19 03/11/21 History XL] traZODone HCL 50 - 100 mg PO HS PRN 08/24/19 03/11/21 History Apixaban [Eliquis] 5 mg PO BID tab 05/19/20 03/11/21 Rx Furosemide [Lasix] 40 mg PO DAILY 03/03/21 03/11/21 History Ascorbic Acid [Vitamin C] 500 mg PO DAILY 03/11/21 03/11/21 History Cholecalciferol [Vitamin D3 (25 50 mcg PO DAILY 03/11/21 03/11/21 History Mcg = 1000 Iu)] Ferrous Sulfate [Feosol] 325 mg PO DAILY 03/11/21 03/11/21 History Magnesium 500 mg PO DAILY 03/11/21 03/11/21 History Multivitamins, Thera [Multivitamin 1 tab PO DAILY 03/11/21 03/11/21 History (formulary)] Allergies Allergy/AdvReac Type Severity Reaction Status Date / Time No Known Allergies Allergy Verified 09/15/22 08:39 Physical Exam Vitals: Vital Signs Temp Pulse Pulse Resp BP BP Pulse Ox 09/15/22 08:26 106 H 18 114/62 95 09/15/22 05:54 98.1 F 104 H 16 105/50 94 L 09/15/22 05:52 104 H 16 105/50 94 L 09/15/22 05:19 98.1 F 104 H 16 101/61 94 L 09/15/22 04:59 98.1 F 105 H 16 100/50 94 L 09/15/22 04:50 98.2 F 109 H 16 107/42 96 09/15/22 04:12 107 H 16 101/53 95 09/15/22 04:01 107 H 16 09/15/22 03:47 98.2 F 102 H 18 104/63 95 09/15/22 03:25 109 H 20 111/54 93 L 09/15/22 00:03 101 H 18 104/57 95 09/14/22 23:18 101 H 17 104/52 97 09/14/22 22:11 97.2 F L 111 H 20 122/57 97 Intake and Output 09/14/22 09/15/22 09/15/22 22:59 06:59 14:59 Intake Total 0 Output Total 650 Balance -650 Intake: Blood Product 0 Rc As-1 Unit 0 [id number] Output: Urine 650 Other: Weight 86.183 kg -GENERAL: The patient is alert and oriented x3, not in any acute distress. Well developed, well nourished. Generally weak and lethargic HEENT: Pupils are round and equally reacting to light. EOMI. No scleral icterus. No conjunctival pallor. Normocephalic, atraumatic. No pharyngeal erythema. No thyromegaly. CARDIOVASCULAR: S1 and S2 present. No murmurs, rubs, or gallops. -PULMONARY: Chest is clear to auscultation, no wheezing or crackles. Mildly tachypneic -ABDOMEN: Soft, nontender, nondistended, normoactive bowel sounds. No palpable organomegaly. Mckeon catheter and a Place MUSCULOSKELETAL: No joint swelling or deformity. EXTREMITIES: No cyanosis, clubbing, or pedal edema. NEUROLOGICAL: Gross neurological examination did not reveal any focal deficits. SKIN: No rashes. no petechiae. Results CBC & Chem 7: 09/14/22 23:56 09/14/22 23:56 Labs: Abnormal Lab Results - Last 24 Hours (Table) 09/14/22 09/14/22 09/14/22 Range/Units 23:56 23:56 23:56 RBC 2.20 L (4.30-5.90) m/uL Hgb 6.7 L* (13.0-17.5) gm/dL Hct 20.8 L (39.0-53.0) % RDW 21.5 H (11.5-15.5) % Plt Count 57 L (150-450) k/uL Metamyelocytes # (Man) 0.24 H (0) k/uL Nucleated RBCs 52 H (0-0) /100 WBC PT 12.6 H (9.0-12.0) sec INR 1.2 H (<1.2) Potassium 5.9 H (3.5-5.1) mmol/L Chloride 113 H (98-107) mmol/L Carbon Dioxide 15 L (22-30) mmol/L BUN 80 H (9-20) mg/dL Creatinine 2.61 H (0.66-1.25) mg/dL Glucose 107 H (74-99) mg/dL Calcium 6.7 L (8.4-10.2) mg/dL Magnesium 2.7 H (1.6-2.3) mg/dL AST 63 H (17-59) U/L Alkaline Phosphatase 315 H (38-126) U/L Troponin I (0.000-0.034) ng/mL Total Protein 5.7 L (6.3-8.2) g/dL Albumin 3.2 L (3.5-5.0) g/dL Urine Protein (Negative) Urine Blood (Negative) Ur Leukocyte Esterase (Negative) Urine RBC (0-5) /hpf Urine WBC (0-5) /hpf Urine WBC Clumps (None) /hpf Urine Bacteria (None) /hpf Crossmatch 09/14/22 09/15/22 09/15/22 Range/Units 23:56 02:22 03:02 RBC (4.30-5.90) m/uL Hgb (13.0-17.5) gm/dL Hct (39.0-53.0) % RDW (11.5-15.5) % Plt Count (150-450) k/uL Metamyelocytes # (Man) (0) k/uL Nucleated RBCs (0-0) /100 WBC PT (9.0-12.0) sec INR (<1.2) Potassium (3.5-5.1) mmol/L Chloride (98-107) mmol/L Carbon Dioxide (22-30) mmol/L BUN (9-20) mg/dL Creatinine (0.66-1.25) mg/dL Glucose (74-99) mg/dL Calcium (8.4-10.2) mg/dL Magnesium (1.6-2.3) mg/dL AST (17-59) U/L Alkaline Phosphatase (38-126) U/L Troponin I 0.043 H* (0.000-0.034) ng/mL Total Protein (6.3-8.2) g/dL Albumin (3.5-5.0) g/dL Urine Protein 1+ H (Negative) Urine Blood Moderate H (Negative) Ur Leukocyte Esterase Large H (Negative) Urine RBC 14 H (0-5) /hpf Urine WBC >182 H (0-5) /hpf Urine WBC Clumps Many H (None) /hpf Urine Bacteria Rare H (None) /hpf Crossmatch See Detail Assessment and Plan Assessment: Acute blood loss anemia , thought secondary to epistaxis. acute kidney injury on chronic kidney disease with hyperkalemia, could be renal in secondary to obstructive uropathy Bilateral hydronephrosis and hydroureter, same on the right side and decrease on the left side. Secondary to prostatic disease Prostate cancer undergoing therapy with Dr. Cornejo Mostly asymptomatic bacteriuria, less likely Acute urinary tract infection, cannot entirely exclude it. Elevated troponin Thrombocytopenia Atrial fibrillation, status post pacemaker, was on Eliquis at home CKD stage III History of GERD History of lung cancer Hypertension Hyperlipidemia Hearing difficulties History of depression, not an active issue Plan: Continue with ceftriaxone follow-up urine culture Continue gentle hydration anemia work up Check bladder scan Monitor creatinine Hold lisinopril avoid NSAIDs His urologist is Dr. Parrish whom will be consulted Cardiology consult follow-up recommendation of ENT and motility oncology team Labs and medication were reviewed.. Continue same treatment. Continue with symptomatic treatment. Resume home medication. Monitor labs and vitals. DVT and GI prophylaxis. Further recommendations as per clinical course of the patient DVT prophylaxis: Eliquis [on hold], continue with mechanical GI Prophylaxis: Ppi PT/OT: Pending Prognosis is guarded
--- NOTE | 2022-09-15 09:50 | XR ---
EXAMINATION TYPE: XR chest 2V DATE OF EXAM: 09/15/2022 COMPARISON: 05/19/2020, CT chest 08/31/2022 INDICATION: Chest pain TECHNIQUE: Frontal and lateral views of the chest are obtained. FINDINGS: The heart size is normal. The pulmonary vasculature is normal. There is mild increased lung markings near the first right rib end. This correlates with the density on the recent CT examination of the right upper lung field. Previous right upper lobe mass is not estrellita dent. Pacemaker overlies the left chest.. IMPRESSION: 1. There is a right upper lobe irregular bordered density at the medial aspect near the first rib end corresponding to findings on recent CT.
[2022-09-15 11:10] LABS: Anisocytosis Moderate; HCT 22.7 % (39.0-53.0); HGB 7.2 gm/dL (13.0-17.5); Hypochromasia Marked; MCH 30.7 pg (25.0-35.0); MCHC 31.8 g/dL (31.0-37.0); MCV 96.7 fL (80.0-100.0); Macrocytosis Slight; Mean Platelet Volume 13.1; Poikilocytosis Moderate; RBC 2.35 m/uL (4.30-5.90); RDW 20.2 % (11.5-15.5)
[2022-09-15 11:11] LABS: Potassium 5.8 mmol/L (3.5-5.1)
[2022-09-15 11:14] LABS: Platelet Count 55 k/uL (150-450)
[2022-09-15 11:32] LABS: Calcium 6.3 mg/dL (8.4-10.2)
[2022-09-15] MEDS ORDERED: Acetaminophen-Codeine 300-30mg TAB PO PRN (11:40)
[2022-09-15] MEDS ORDERED: traZODone HCL 50 MG TAB PO PRN (11:40)
[2022-09-15] MEDS ORDERED: CALCIUM GLUCONATE IN NACL 1 GM in SALINE 1 100ML.BAG IVPB ONE (11:42)
[2022-09-15] MEDS: FUROSEMIDE 20 MG TAB PO SCH (12:36)
--- NOTE | 2022-09-15 13:12 | P.CRDCN ---
History of Present Illness Consult date: 09/15/22 Reason for Consult (text): elevated troponins History of present illness: History of present illness: This is an 87-year-old male patient of Dr. 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 Patient presented to the hospital due to generalized weakness is progressively worsening over the past 6 months and has had significant decline since July. Patient also had epistaxis over at that time eliquis was discontinued after speaking with Dr. Cornejo, however, the patient continued to take the medication until today. There is concern the patient has increased confusion. We've been asked to see the patient due to elevated troponins * EKG is atrial fibrillation at 101 bpm, nonspecific ST-T wave changes * Chest x-ray reveals right upper lobe irregular bordered density at the medial aspect near the first rib and corresponding findings on recent CAT scan. * CAT scan of the abdomen and pelvis revealed bilateral hydronephrosis and hydroureter which is unchanged on the right side and increased on the left side compared to old exams. Mild atelectasis at the posterior lung bases. Osseous metastatic disease. * CAT scan of the brain revealed moderate cerebral atrophy. No acute intracranial abnormality. No skin change compared to old exam. * Laboratory studies: WBC 8, hemoglobin 6.7, platelet count 57. Sodium 138, potassium 5.9, chloride 113, CO2 15, BUN 80 creatinine 2.6, blood sugar 107. Troponin 0.043 and 0.051. ProBNP 8700. Influenza A and influenza B not detected. * Echocardiogram 04/2020 revealed EF of 50-55%, mild concentric left ventricular hypertrophy, mild mitral regurgitation, mild tricuspid regurg, mod erate pulmonary hypertension, estimated right atrial pressure greater than 50 mmHg. * Home cardiac medications: Eliquis 5 mg twice daily(stopped on 09/15), atorvastatin 40 mg at bedtime, Zetia 10 mg at bedtime, Lasix 40 mg alternating with 20 mg, Toprol-XL 12.5 mg daily Review Of Systems: Constitutional: No fever, no chills. Reports weakness, reports fatigue reports lethargy. EENT: No headache. No dizziness. Lungs: No shortness of breath, cough, no sputum production. No wheezing. Cardiovascular: No chest pain, no lower extremity edema. No palpitations. No paroxysmal nocturnal dyspnea. No orthopnea. No lightheadedness or dizziness. No syncopal episodes. Abdominal: No abdominal pain. No nausea, vomiting. No diarrhea. No constipation. No bloody or tarry stools.. Reports loss of appetite. Genitourinary: No dysuria.. No urinary retention. Musculoskeletal: No myalgias. Generalized muscle weakness, no gait dysfunction, no frequent falls. No back pain. No neck pain. Integumentary: No wounds, no lesions. No rash or pruritus. No unusual bruising. Neurologic: No aphasia. No facial droop. Reported change in mentation. No head injury. No headache. No paralysis. No paresthesia. Psychiatric: No depression. No anxiety. Endocrine: No abnormal blood sugars. Physical examination: Gen: This is an 87-year-old male. He is resting on the ER stretcher in no acute distress VS: Reviewed HEENT: Head is atraumatic, normocephalic. Pupils equal, round. Sclerae is anicteric. NECK: Supple. No JVD. No lymphadenopathy. No thyromegaly. LUNGS: Diminished bilaterally. Clear to auscultation. No wheezes or rhonchi. No intercostal retractions. HEART: Irregular rate and rhythm. No murmur. ABDOMEN: Soft. Bowel sounds are present. No masses. No tenderness. EXTREMITIES: 1+ bilateral pedal edema. No calf tenderness. NEUROLOGICAL: Patient is awake, alert, mild confusion. Assessment: Elevated troponins secondary to anemia, not consistent with acute coronary syndrome Generalized weakness and fatigue Severe chronic anemia status post transfusion 1 unit packed RBCs Epistaxis Chronic diastolic heart failure Hypertension Dyslipidemia Chronic atrial fibrillation Bradycardia status post prior to pacemaker Metastatic prostate cancer Hydronephrosis Plan: Continue patient's home cardiac medications including atorvastatin, Zetia, Lasix, Toprol-XL Discontinue eliquis Due to anemia Obtain 2-D echocardiogram and Doppler study to assess cardiac structure and fun ction Further recommendations to follow based upon clinical course Thank you kindly for this consultation. Nurse practitioner note has been reviewed, I agree with documented findings and plan of care. Patient was seen and examined. Past Medical History Past Medical History: Atrial Fibrillation, Cancer, GERD/Reflux, Hearing Disorder / Deafness, Hyperlipidemia, Hypertension Additional Past Medical History / Comment(s): elevated PSA - following with dr coury, macular degeneration History of Any Multi-Drug Resistant Organisms: None Reported Past Surgical History: Bladder Surgery, Hernia Repair, Pacemaker Additional Past Surgical History / Comment(s): rodolfo cataract surgery Past Anesthesia/Blood Transfusion Reactions: No Reported Reaction Type of Cardiac Device: Permanent Pacemaker Device Placement Date:: 2018 Past Psychological History: Depression Smoking Status: Former smoker Past Alcohol Use History: Daily Past Drug Use History: None Reported - Past Family History Father Family Medical History: Cancer Additional Family Medical History / Comment(s): prostate - passed in 60's Mother Family Medical History: Myocardial Infarction ([place]) Medications and Allergies Home Medications Medication Instructions Recorded Confirmed Type ALPRAZolam [Xanax] 0.25 mg PO DAILY PRN 03/10/16 09/15/22 History Atorvastatin Calcium [Lipitor] 40 mg PO HS 03/10/16 09/15/22 History Pantoprazole Sodium [Protonix] 40 mg PO HS 03/10/16 09/15/22 History Ezetimibe [Zetia] 10 mg PO HS 08/24/19 09/15/22 History Metoprolol Succinate (ER) [Toprol 12.5 mg PO DAILY 08/24/19 09/15/22 History XL] traZODone HCL 50 - 100 mg PO HS PRN 08/24/19 09/15/22 History Apixaban [Eliquis] 5 mg PO BID tab 05/19/20 09/15/22 Rx Furosemide [Lasix] 40 mg PO Q2D 03/03/21 09/15/22 History Ascorbic Acid [Vitamin C] 500 mg PO DAILY 03/11/21 09/15/22 History Cholecalciferol [Vitamin D3 (25 50 mcg PO DAILY 03/11/21 09/15/22 History Mcg = 1000 Iu)] Ferrous Sulfate [Feosol] 325 mg PO DAILY 03/11/21 09/15/22 History Magnesium 500 mg PO DAILY 03/11/21 09/15/22 History Multivitamins, Thera [Multivitamin 1 tab PO DAILY 03/11/21 09/15/22 History (formulary)] Acetaminophen-Codeine 300-30mg 1 tab PO QID PRN 09/15/22 09/15/22 History [Tylenol w/codeine #3] Furosemide [Lasix] 20 mg PO Q2D 09/15/22 09/15/22 History Lorecet 5/300 1 tab PO QID PRN 09/15/22 09/15/22 History Megestrol [Megace] 800 mg PO DAILY 09/15/22 09/15/22 History Midodrine HCl [ProAmantine] 2.5 mg PO DIRECTED 09/15/22 09/15/22 History Sodium Bicarbonate Tab 650 mg PO BID 09/15/22 09/15/22 History Allergies Allergy/AdvReac Type Severity Reaction Status Date / Time No Known Allergies Allergy Verified 09/15/22 08:39 Physical Exam Vitals: Vital Signs Temp Pulse Pulse Resp BP BP Pulse Ox 09/15/22 11:15 106 H 18 98/64 93 L 09/15/22 08:53 106 H 20 09/15/22 08:39 99.2 F 102 H 20 106/51 94 L 09/15/22 08:26 106 H 18 114/62 95 09/15/22 05:54 98.1 F 104 H 16 105/50 94 L 09/15/22 05:52 104 H 16 105/50 94 L 09/15/22 05:19 98.1 F 104 H 16 101/61 94 L 09/15/22 04:59 98.1 F 105 H 16 100/50 94 L 09/15/22 04:50 98.2 F 109 H 16 107/42 96 09/15/22 04:12 107 H 16 101/53 95 09/15/22 04:01 107 H 16 09/15/22 03:47 98.2 F 102 H 18 104/63 95 09/15/22 03:25 109 H 20 111/54 93 L 09/15/22 00:03 101 H 18 104/57 95 09/14/22 23:18 101 H 17 104/52 97 09/14/22 22:11 97.2 F L 111 H 20 122/57 97 Intake and Output 09/14/22 09/15/22 09/15/22 22:59 06:59 14:59 Intake Total 0 310 Output Total 650 Balance -650 310 Intake: Blood Product 0 310 Rc As-1 Unit 0 310 [id number] Output: Urine 650 Other: Voiding Method Indwelling Catheter Weight 86.183 kg Results 09/15/22 10:23 09/15/22 10:23 Cardiac Enzymes 09/14/22 09/14/22 09/15/22 Range/Units 23:56 23:56 10:23 AST 63 H (17-59) U/L Troponin I 0.043 H* 0.051 H* (0.000-0.034) ng/mL Coagulation 09/14/22 Range/Units 23:56 PT 12.6 H (9.0-12.0) sec APTT 25.5 (22.0-30.0) sec CBC 09/14/22 09/15/22 Range/Units 23:56 10:23 WBC 8.0 11.1 H (3.8-10.6) k/uL RBC 2.20 L 2.35 L (4.30-5.90) m/uL Hgb 6.7 L* 7.2 L (13.0-17.5) gm/dL Hct 20.8 L 22.7 L (39.0-53.0) % Plt Count 57 L 55 L (150-450) k/uL Comprehensive Metabolic Panel 09/14/22 09/15/22 Range/Units 23:56 10:23 Sodium 138 140 (137-145) mmol/L Potassium 5.9 H 5.8 H (3.5-5.1) mmol/L Chloride 113 H 114 H (98-107) mmol/L Carbon Dioxide 15 L 14 L (22-30) mmol/L BUN 80 H 78 H (9-20) mg/dL Creatinine 2.61 H 2.51 H (0.66-1.25) mg/dL Glucose 107 H 96 (74-99) mg/dL Calcium 6.7 L 6.3 L* (8.4-10.2) mg/dL AST 63 H (17-59) U/L ALT 11 (4-49) U/L Alkaline Phosphatase 315 H (38-126) U/L Total Protein 5.7 L (6.3-8.2) g/dL Albumin 3.2 L (3.5-5.0) g/dL Current Medications Generic Name Dose Route Start Last Admin Trade Name Freq PRN Reason Stop Dose Admin Acetaminophen 650 mg 09/15/22 03:36 Acetaminophen Tab 325 Mg Tab PO Q6HR PRN Mild Pain or Fever > 100.5 Acetaminophen/Codeine Phosphate 1 each 09/15/22 11:40 Acetaminophen-Codeine 300-30mg Tab PO QID PRN Pain Atorvastatin Calcium 40 mg 09/15/22 21:00 Atorvastatin 40 Mg Tab PO HS JEREMIAH Ezetimibe 10 mg 09/15/22 21:00 Ezetimibe 10 Mg Tab PO HS JEREMIAH Ferrous Sulfate 325 mg 09/15/22 21:00 Ferrous Sulfate 325 Mg Tab PO BID JEREMIAH Furosemide 20 mg 09/15/22 12:00 09/15/22 12:36 Furosemide 20 Mg Tab PO 20 mg Q2D JEREMIAH Administration Furosemide 40 mg 09/16/22 09:00 Furosemide 40 Mg Tab PO Q2D JEREMIAH Sodium Chloride 1,000 mls @ 75 mls/hr 09/15/22 03:45 09/15/22 03:52 Saline 0.9% IV 75 mls/hr .[id number] JEREMIAH Administration Ceftriaxone Sodium 1 gm/ 50 mls @ 100 mls/hr 09/16/22 09:00 Sodium Chloride IVPB Q24HR [facility] Protocol Metoprolol Succinate 12.5 mg 09/16/22 09:00 Metoprolol Succinate (Er) 25 Mg Tab.Er.24h PO DAILY JEREMIAH Naloxone HCl 0.2 mg 09/15/22 03:26 Naloxone 0.4 Mg/Ml 1 Ml Vial IV Q2M PRN Opioid Reversal Pantoprazole Sodium 40 mg 09/15/22 21:00 Pantoprazole 40 Mg Tablet PO HS JEREMIAH Sodium Bicarbonate 650 mg 09/15/22 21:00 Sodium Bicarbonate Tab 650 Mg Tab PO BID JEREMIAH Trazodone HCl 50 mg 09/15/22 11:40 Trazodone Hcl 50 Mg Tab PO HS PRN Insomnia Intake and Output 09/14/22 09/15/22 09/15/22 22:59 06:59 14:59 Intake Total 0 310 Output Total 650 Balance -650 310 Intake: Blood Product 0 310 Rc As-1 Unit 0 310 [id number] Output: Urine 650 Other: Voiding Method Indwelling Catheter Weight 86.183 kg 09/15/22 10:23 09/15/22 10:23
[2022-09-15 15:07] LABS: Band Neutrophils % 11 %; Metamyelocytes % 2 %; Myelocytes % 2 %; Neutrophils % (M) 43 %; Nucleated Red Blood Cells 40 /100 WBC (0-0); Total Cells Counted 200
[2022-09-15 15:08] LABS: Blast Cells # (M) 0.24 k/uL (0); Lymphocytes # (M) 2.29 k/uL (1.0-4.8); Metamyelocytes # (M) 0.16 k/uL (0); Monocytes # (M) 0.55 k/uL (0-1.0); Myelocytes # (M) 0.16 k/uL (0); WBC 7.9 k/uL (3.8-10.6)
[2022-09-15 15:09] LABS: Anisocytosis (M) Present; Polychromasia Present
[2022-09-15 15:10] LABS: Ovalocytes Present
[2022-09-15 15:11] LABS: Toxic Vacuolation Present
[2022-09-15 19:38] LABS: % Iron Saturation 42.86 (15.00-50.00)
[2022-09-15] MEDS: ATORVASTATIN 40 MG TAB PO SCH (20:29)
[2022-09-15] MEDS: FERROUS SULFATE 325 MG TAB PO SCH (20:29)
[2022-09-15] MEDS: PANTOPRAZOLE 40 MG TABLET PO SCH (20:29)
[2022-09-15] MEDS: SODIUM BICARBONATE TAB 650 MG TAB PO SCH (20:29)
[2022-09-15] MEDS: EZETIMIBE 10 MG TAB PO SCH (20:29)
--- NOTE | 2022-09-15 22:29 | P.CONS ---
History of Present Illness - Reason for Consult Consult date: 09/15/22 Anemia, metastatic prostate cancer, Hx early stage lung cancer - History of Present Illness The patient is an 87-year-old white male, well-known to our service. He follows with Dr. Cornejo in the outpatient setting. His oncology history is as follows: He was found to have a RUL lung mass in June/2020 when admitted to the hospital with CHF and A fib and had a pacemaker placement. His staging work up at that time with CT chest and PET scan revealed 4 cm RUL mass,biopsy was positive for adenocarcinoma of the lung. He underwent SBRT which was completed on 08/23/2020. he had a CT scan of chest on 02/04/2021 which revealed stable/decreased lesion in RUL of the lung,however,there was new sclerotic lesions at T12 and L2. PET scan on 02/14/2021 revealed improvement in RUL lung mass,however,diffuse bony metastatic disease and uptake in prostate gland. He had a PSA done on 08/09/2019 which was 11.0 PSA on 03/08/2021 was 149. On 03/19/2022,prostate biopsy in all cores,[place] 9 (5+4). He was started on LHRH agonist by Dr Hernandez at that time,his PSA went down significantly,on 01/14/2022 it was 2.2, until June/2022 when it went up to 237 and xtandi was added by Dr Hernandez on 07/30/2022 He could not tolerate xtandi,it was held and then the dose was reduced PSA on 08/25/2022 was 960. The above treatment was provided by his urologist,Dr Hernandez He was seen in follow-up by Dr. Cornejo in the office on 09/08/22. He was complaining of feeling very weak, significant pain in right shoulder and anterior right ribs, no appetite,currently off xtandi. The patient had restaging studies with bone scan and CT scans ordered, as well as biomarker testing to see if he could be a candidate for any targeted agent. Other treatment options, including radionucleotide agents if he was found to have bone only disease, or a different ARB were also discussed. These investigations are pending. The patient received IV fluids in the office with some improvement, but then started to decline again over the past 2-3 days with marked decrease in appetite. He was also having an intermittent nosebleed, and was asked to stop his eliquis than the arthritic service was called with this complaint, yesterday. He came into the emergency room, where he was found to have a hemoglobin of 6.7. He received 1 unit PRBC with increased to 7.2. Patient counts were in the mid 50,000 range, which is new for him. According to the daughter who brought him to the hospital the patient was mildly confused, but he was alert and oriented but examined in the ER. He denied any obvious bleeding. Labs from 08/20/22 had shown a hemoglobin of 8.6, and platelet count of 121. Review of Systems Constitutional: Reports chronic pain, Reports fatigue, Reports poor appetite, Reports weakness, Reports weight loss Eyes: denies blurred vision, denies pain Ears: deny: decreased hearing, ear discharge, earache, tinnitus Ears, nose, mouth and throat: Denies headache, Denies sore throat Cardiovascular: Reports decreased exercise tolerance Respiratory: Reports dyspnea Gastrointestinal: Denies abdominal pain, Denies diarrhea, Denies nausea, Denies vomiting Genitourinary: Reports as per HPI Musculoskeletal: Reports muscle weakness Musculoskeletal: right: shoulder pain Integumentary: Denies pruritus, Denies rash Neurological: Reports weakness Psychiatric: Reports confusion (Mild, questionable) Endocrine: Reports fatigue, Reports weight change Hematologic/Lymphatic: Reports as per HPI Past Medical History Past Medical History: Atrial Fibrillation, Cancer, GERD/Reflux, Hearing Disorder / Deafness, Hyperlipidemia, Hypertension Additional Past Medical History / Comment(s): elevated PSA - following with dr hernandez, macular degeneration History of Any Multi-Drug Resistant Organisms: None Reported Past Surgical History: Bladder Surgery, Hernia Repair, Pacemaker Additional Past Surgical History / Comment(s): rodolfo cataract surgery Past Anesthesia/Blood Transfusion Reactions: No Reported Reaction Type of Cardiac Device: Permanent Pacemaker Device Placement Date:: 2018 Past Psychological History: Depression Smoking Status: Former smoker Past Alcohol Use History: Daily Past Drug Use History: None Reported - Past Family History Father Family Medical History: Cancer Additional Family Medical History / Comment(s): prostate - passed in 60's Mother Family Medical History: Myocardial Infarction ([place]) Medications and Allergies Home Medications Medication Instructions Recorded Confirmed Type ALPRAZolam [Xanax] 0.25 mg PO DAILY PRN 03/10/16 09/15/22 History Atorvastatin Calcium [Lipitor] 40 mg PO HS 03/10/16 09/15/22 History Pantoprazole Sodium [Protonix] 40 mg PO HS 03/10/16 09/15/22 History Ezetimibe [Zetia] 10 mg PO HS 08/24/19 09/15/22 History Metoprolol Succinate (ER) [Toprol 12.5 mg PO DAILY 08/24/19 09/15/22 History XL] traZODone HCL 50 - 100 mg PO HS PRN 08/24/19 09/15/22 History Apixaban [Eliquis] 5 mg PO BID tab 05/19/20 09/15/22 Rx Furosemide [Lasix] 40 mg PO Q2D 03/03/21 09/15/22 History Ascorbic Acid [Vitamin C] 500 mg PO DAILY 03/11/21 09/15/22 History Cholecalciferol [Vitamin D3 (25 50 mcg PO DAILY 03/11/21 09/15/22 History Mcg = 1000 Iu)] Ferrous Sulfate [Feosol] 325 mg PO DAILY 03/11/21 09/15/22 History Magnesium 500 mg PO DAILY 03/11/21 09/15/22 History Multivitamins, Thera [Multivitamin 1 tab PO DAILY 03/11/21 09/15/22 History (formulary)] Acetaminophen-Codeine 300-30mg 1 tab PO QID PRN 09/15/22 09/15/22 History [Tylenol w/codeine #3] Furosemide [Lasix] 20 mg PO Q2D 09/15/22 09/15/22 History Lorecet 5/300 1 tab PO QID PRN 09/15/22 09/15/22 History Megestrol [Megace] 800 mg PO DAILY 09/15/22 09/15/22 History Midodrine HCl [ProAmantine] 2.5 mg PO DIRECTED 09/15/22 09/15/22 History Sodium Bicarbonate Tab 650 mg PO BID 09/15/22 09/15/22 History Allergies Allergy/AdvReac Type Severity Reaction Status Date / Time No Known Allergies Allergy Verified 09/15/22 08:39 Physical Exam Vitals: Vital Signs Temp Pulse Pulse Resp BP BP Pulse Ox 09/15/22 13:02 110 H 09/15/22 11:15 106 H 18 98/64 93 L 09/15/22 08:53 106 H 20 09/15/22 08:39 99.2 F 102 H 20 106/51 94 L 09/15/22 08:26 106 H 18 114/62 95 09/15/22 05:54 98.1 F 104 H 16 105/50 94 L 09/15/22 05:52 104 H 16 105/50 94 L 09/15/22 05:19 98.1 F 104 H 16 101/61 94 L 09/15/22 04:59 98.1 F 105 H 16 100/50 94 L 09/15/22 04:50 98.2 F 109 H 16 107/42 96 09/15/22 04:12 107 H 16 101/53 95 09/15/22 04:01 107 H 16 09/15/22 03:47 98.2 F 102 H 18 104/63 95 09/15/22 03:25 109 H 20 111/54 93 L 09/15/22 00:03 101 H 18 104/57 95 09/14/22 23:18 101 H 17 104/52 97 09/14/22 22:11 97.2 F L 111 H 20 122/57 97 Intake and Output 09/14/22 09/15/22 09/15/22 22:59 06:59 14:59 Intake Total 0 310 Output Total 650 Balance -650 310 Intake: Blood Product 0 310 Rc As-1 Unit 0 310 [id number] Output: Urine 650 Other: Voiding Method Indwelling Catheter Weight 86.183 kg - Constitutional General appearance: no acute distress - EENT Eyes: EOMI, PERRLA ENT: hearing grossly normal, normal oropharynx - Neck Neck: no lymphadenopathy Thyroid: bilateral: normal size - Respiratory Respiratory: bilateral: CTA - Cardiovascular Rhythm: regular Heart sounds: normal: S1, S2 - Gastrointestinal General gastrointestinal: normal bowel sounds, soft - Integumentary Integumentary: normal - Neurologic Neurologic: CNII-XII intact - Musculoskeletal Musculoskeletal: generalized weakness - Psychiatric Psychiatric: A&O x's 3, appropriate affect Results CBC & Chem 7: 09/15/22 10:23 09/15/22 10:23 Labs: Abnormal Lab Results - Last 24 Hours (Table) 09/14/22 09/14/22 09/14/22 Range/Units 23:56 23:56 23:56 WBC (3.8-10.6) k/uL RBC 2.20 L (4.30-5.90) m/uL Hgb 6.7 L* (13.0-17.5) gm/dL Hct 20.8 L (39.0-53.0) % RDW 21.5 H (11.5-15.5) % Plt Count 57 L (150-450) k/uL Metamyelocytes # (Man) 0.24 H (0) k/uL Nucleated RBCs 52 H (0-0) /100 WBC PT 12.6 H (9.0-12.0) sec INR 1.2 H (<1.2) Potassium 5.9 H (3.5-5.1) mmol/L Chloride 113 H (98-107) mmol/L Carbon Dioxide 15 L (22-30) mmol/L BUN 80 H (9-20) mg/dL Creatinine 2.61 H (0.66-1.25) mg/dL Glucose 107 H (74-99) mg/dL Calcium 6.7 L (8.4-10.2) mg/dL Magnesium 2.7 H (1.6-2.3) mg/dL AST 63 H (17-59) U/L Alkaline Phosphatase 315 H (38-126) U/L Troponin I (0.000-0.034) ng/mL Total Protein 5.7 L (6.3-8.2) g/dL Albumin 3.2 L (3.5-5.0) g/dL Urine Protein (Negative) Urine Blood (Negative) Ur Leukocyte Esterase (Negative) Urine RBC (0-5) /hpf Urine WBC (0-5) /hpf Urine WBC Clumps (None) /hpf Urine Bacteria (None) /hpf Crossmatch 09/14/22 09/15/22 09/15/22 Range/Units 23:56 02:22 03:02 WBC (3.8-10.6) k/uL RBC (4.30-5.90) m/uL Hgb (13.0-17.5) gm/dL Hct (39.0-53.0) % RDW (11.5-15.5) % Plt Count (150-450) k/uL Metamyelocytes # (Man) (0) k/uL Nucleated RBCs (0-0) /100 WBC PT (9.0-12.0) sec INR (<1.2) Potassium (3.5-5.1) mmol/L Chloride (98-107) mmol/L Carbon Dioxide (22-30) mmol/L BUN (9-20) mg/dL Creatinine (0.66-1.25) mg/dL Glucose (74-99) mg/dL Calcium (8.4-10.2) mg/dL Magnesium (1.6-2.3) mg/dL AST (17-59) U/L Alkaline Phosphatase (38-126) U/L Troponin I 0.043 H* (0.000-0.034) ng/mL Total Protein (6.3-8.2) g/dL Albumin (3.5-5.0) g/dL Urine Protein 1+ H (Negative) Urine Blood Moderate H (Negative) Ur Leukocyte Esterase Large H (Negative) Urine RBC 14 H (0-5) /hpf Urine WBC >182 H (0-5) /hpf Urine WBC Clumps Many H (None) /hpf Urine Bacteria Rare H (None) /hpf Crossmatch See Detail 09/15/22 09/15/22 09/15/22 Range/Units 10:23 10:23 10:23 WBC 11.1 H (3.8-10.6) k/uL RBC 2.35 L (4.30-5.90) m/uL Hgb 7.2 L (13.0-17.5) gm/dL Hct 22.7 L (39.0-53.0) % RDW 20.2 H (11.5-15.5) % Plt Count 55 L (150-450) k/uL Metamyelocytes # (Man) (0) k/uL Nucleated RBCs (0-0) /100 WBC PT (9.0-12.0) sec INR (<1.2) Potassium 5.8 H (3.5-5.1) mmol/L Chloride 114 H (98-107) mmol/L Carbon Dioxide 14 L (22-30) mmol/L BUN 78 H (9-20) mg/dL Creatinine 2.51 H (0.66-1.25) mg/dL Glucose (74-99) mg/dL Calcium 6.3 L* (8.4-10.2) mg/dL Magnesium (1.6-2.3) mg/dL AST (17-59) U/L Alkaline Phosphatase (38-126) U/L Troponin I 0.051 H* (0.000-0.034) ng/mL Total Protein (6.3-8.2) g/dL Albumin (3.5-5.0) g/dL Urine Protein (Negative) Urine Blood (Negative) Ur Leukocyte Esterase (Negative) Urine RBC (0-5) /hpf Urine WBC (0-5) /hpf Urine WBC Clumps (None) /hpf Urine Bacteria (None) /hpf Crossmatch Chest x-ray: report reviewed CT scan - abdomen: report reviewed CT scan - pelvis: report reviewed Assessment and Plan (1) Bicytopenia Narrative/Plan: The patient's CBC was essentially normal in mid 2020. Labs or your this month had shown a drop in hemoglobin and platelet counts, with further significant drop noted during this admission - With the patient being on anticoagulation, the drop in hemoglobin because of occult bleeding cannot be ruled out. However the issue typically not affect his platelet counts. Therefore on other major possibility ongoing progression of his cancer affecting bone marrow function. In terms of the anemia other appointment putting factors could include the drop in his renal function from baseline. His creatinine was 3.05 earlier this month and was in the 12 range this admission his normal baseline being in the low 1 range - Agree with transfusion to keep hemoglobin greater than 7 - Check iron studies as well as other cytopenia workup - Given rapidly progressive malignancy, and drop in platelet count, I will also check DIC workup - If progression of malignancy is felt to be the cause of his progressive cytopenias, then the treatment would be that of the underlying cause, along with ongoing supportive transfusions Current Visit: Yes Status: Acute Code(s): D75.89 - OTHER SPECIFIED DISEASES OF BLOOD AND BLOOD-FORMING ORGANS SNOMED Code(s): 67206801 (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 Repeat PSA to see change compared to earlier this month. At this time additional treatment options, including another ARB, radionucleotide therapy, or a targeted agent if the patient has an appropriate biomarker and testing, have been discussed. The patient is not felt to be a candidate for conventional chemotherapy based on his age and performance status. If his performance status continues to worsen rapidly, and then ooptions would be quite limited Current Visit: Yes Status: Acute Code(s): C61 - MALIGNANT NEOPLASM OF PROSTATE; C79.51 - SECONDARY MALIGNANT NEOPLASM OF BONE SNOMED Code(s): 521725609
[2022-09-16] MEDS: SODIUM CHLORIDE 0.9% 1,000 ML IV SCH ×2 (08:12→17:48)
--- NOTE | 2022-09-16 08:41 | P.GSCN ---
History of Present Illness Consult date: 09/16/22 Reason for Consult: prostate cancer, bilateral hydronephrosis History of present illness: this is an 87-year-old male admitted to the hospital with weakness, acute blood loss anemia and acute kidney injury. He is a well-known patient of Dr. Burger follows up with him for metastatic prostate cancer. Currently is on androgen deprivation therapy and Xtandi, has had progression of his prostate cancer, his last PSA was 962. On presentation underwent a CT abdomen and pelvis that showed evidence of bilateral hydronephrosis with dilated ureter down to the bladder, he does have history of chronic bilateral hydronephrosis. Denies any flank pain, dysuria or gross hematuria. Currently has a Mckeon catheter in place. His creatinine on presentation was 2.6 when which was down to 2.5, his baseline from last year is around 1.3. Review of Systems ROS unobtainable: due to mental status Past Medical History Past Medical History: Atrial Fibrillation, Cancer, GERD/Reflux, Hearing Disorder / Deafness, Hyperlipidemia, Hypertension Additional Past Medical History / Comment(s): elevated PSA - following with dr burger, macular degeneration History of Any Multi-Drug Resistant Organisms: None Reported Past Surgical History: Bladder Surgery, Hernia Repair, Pacemaker Additional Past Surgical History / Comment(s): rodolfo cataract surgery Past Anesthesia/Blood Transfusion Reactions: No Reported Reaction Type of Cardiac Device: Permanent Pacemaker Device Placement Date:: 2018 Past Psychological History: Depression Smoking Status: Former smoker Past Alcohol Use History: Daily Past Drug Use History: None Reported - Past Family History Father Family Medical History: Cancer Additional Family Medical History / Comment(s): prostate - passed in 60's Mother Family Medical History: Myocardial Infarction ([place]) Medications and Allergies Home Medications Medication Instructions Recorded Confirmed Type ALPRAZolam [Xanax] 0.25 mg PO DAILY PRN 03/10/16 09/15/22 History Atorvastatin Calcium [Lipitor] 40 mg PO HS 03/10/16 09/15/22 History Pantoprazole Sodium [Protonix] 40 mg PO HS 03/10/16 09/15/22 History Ezetimibe [Zetia] 10 mg PO HS 08/24/19 09/15/22 History Metoprolol Succinate (ER) [Toprol 12.5 mg PO DAILY 08/24/19 09/15/22 History XL] traZODone HCL 50 - 100 mg PO HS PRN 08/24/19 09/15/22 History Apixaban [Eliquis] 5 mg PO BID tab 05/19/20 09/15/22 Rx Furosemide [Lasix] 40 mg PO Q2D 03/03/21 09/15/22 History Ascorbic Acid [Vitamin C] 500 mg PO DAILY 03/11/21 09/15/22 History Cholecalciferol [Vitamin D3 (25 50 mcg PO DAILY 03/11/21 09/15/22 History Mcg = 1000 Iu)] Ferrous Sulfate [Feosol] 325 mg PO DAILY 03/11/21 09/15/22 History Magnesium 500 mg PO DAILY 03/11/21 09/15/22 History Multivitamins, Thera [Multivitamin 1 tab PO DAILY 03/11/21 09/15/22 History (formulary)] Acetaminophen-Codeine 300-30mg 1 tab PO QID PRN 09/15/22 09/15/22 History [Tylenol w/codeine #3] Furosemide [Lasix] 20 mg PO Q2D 09/15/22 09/15/22 History Lorecet 5/300 1 tab PO QID PRN 09/15/22 09/15/22 History Megestrol [Megace] 800 mg PO DAILY 09/15/22 09/15/22 History Midodrine HCl [ProAmantine] 2.5 mg PO DIRECTED 09/15/22 09/15/22 History Sodium Bicarbonate Tab 650 mg PO BID 09/15/22 09/15/22 History Allergies Allergy/AdvReac Type Severity Reaction Status Date / Time No Known Allergies Allergy Verified 09/15/22 08:39 Surgical - Exam Vital Signs Temp Pulse Resp BP Pulse Ox 97.2 F L 111 H 20 122/57 97 09/14/22 22:11 09/14/22 22:11 09/14/22 22:11 09/14/22 22:11 09/14/22 22:11 - General no distress, no pain - Eyes normal ocular movement, pale - ENT normal nares, decreased hearing - Respiratory normal expansion, normal respiratory effort - Abdomen Abdomen: soft, non tender, no distended Results - Labs 09/15/22 10:23 09/15/22 10:23 Abnormal Lab Results - Last 24 Hours (Table) 09/15/22 09/15/2209/15/22 Range/Units 03:02 10:23 10:23 RBC 2.35 L (4.30-5.90) m/uL Hgb 7.2 L (13.0-17.5) gm/dL Hct 22.7 L (39.0-53.0) % RDW 20.2 H (11.5-15.5) % Plt Count 55 L (150-450) k/uL Blast Cells % 3 H* % Metamyelocytes # (Man) 0.16 H (0) k/uL Myelocytes # (Manual) 0.16 H (0) k/uL Blast Cells # (Man) 0.24 H (0) k/uL Nucleated RBCs 40 H (0-0) /100 WBC Retic Count (0.5-2.0) % Fibrinogen (200-500) mg/dL Potassium 5.8 H (3.5-5.1) mmol/L Chloride 114 H (98-107) mmol/L Carbon Dioxide 14 L (22-30) mmol/L BUN 78 H (9-20) mg/dL Creatinine 2.51 H (0.66-1.25) mg/dL Calcium 6.3 L* (8.4-10.2) mg/dL Iron (65-175) ug/dL Ferritin (22.0-322.0) ng/mL Troponin I (0.000-0.034) ng/mL Prostate Specific Ag (0.00-6.50) ng/mL Vitamin B12 (200.0-944.0) pg/mL Procalcitonin (0.02-0.09) ng/mL Crossmatch See Detail 09/15/22 09/15/22 09/15/22 Range/Units 10:23 10:23 13:26 RBC (4.30-5.90) m/uL Hgb (13.0-17.5) gm/dL Hct (39.0-53.0) % RDW (11.5-15.5) % Plt Count (150-450) k/uL Blast Cells % % Metamyelocytes # (Man) (0) k/uL Myelocytes # (Manual) (0) k/uL Blast Cells # (Man) (0) k/uL Nucleated RBCs (0-0) /100 WBC Retic Count 5.0 H (0.5-2.0) % Fibrinogen (200-500) mg/dL Potassium (3.5-5.1) mmol/L Chloride (98-107) mmol/L Carbon Dioxide (22-30) mmol/L BUN (9-20) mg/dL Creatinine (0.66-1.25) mg/dL Calcium (8.4-10.2) mg/dL Iron (65-175) ug/dL Ferritin (22.0-322.0) ng/mL Troponin I 0.051 H* (0.000-0.034) ng/mL Prostate Specific Ag (0.00-6.50) ng/mL Vitamin B12 (200.0-944.0) pg/mL Procalcitonin 1.04 H (0.02-0.09) ng/mL Crossmatch 09/15/22 09/15/22 Range/Units 13:26 13:26 RBC (4.30-5.90) m/uL Hgb (13.0-17.5) gm/dL Hct (39.0-53.0) % RDW (11.5-15.5) % Plt Count (150-450) k/uL Blast Cells % % Metamyelocytes # (Man) (0) k/uL Myelocytes # (Manual) (0) k/uL Blast Cells # (Man) (0) k/uL Nucleated RBCs (0-0) /100 WBC Retic Count (0.5-2.0) % Fibrinogen 522 H (200-500) mg/dL Potassium (3.5-5.1) mmol/L Chloride (98-107) mmol/L Carbon Dioxide (22-30) mmol/L BUN (9-20) mg/dL Creatinine (0.66-1.25) mg/dL Calcium (8.4-10.2) mg/dL Iron 192 H (65-175) ug/dL Ferritin 366.0 H (22.0-322.0) ng/mL Troponin I (0.000-0.034) ng/mL Prostate Specific Ag 933.00 H (0.00-6.50) ng/mL Vitamin B12 1289.0 H (200.0-944.0) pg/mL Procalcitonin (0.02-0.09) ng/mL Crossmatch Diabetes panel 09/15/22 Range/Units 10:23 Sodium 140 (137-145) mmol/L Potassium 5.8 H (3.5-5.1) mmol/L Chloride 114 H (98-107) mmol/L Carbon Dioxide 14 L (22-30) mmol/L BUN 78 H (9-20) mg/dL Creatinine 2.51 H (0.66-1.25) mg/dL Glucose 96 (74-99) mg/dL Calcium 6.3 L* (8.4-10.2) mg/dL Calcium panel 09/15/22 Range/Units 10:23 Calcium 6.3 L* (8.4-10.2) mg/dL Pituitary panel 09/15/22 Range/Units 10:23 Sodium 140 (137-145) mmol/L Potassium 5.8 H (3.5-5.1) mmol/L Chloride 114 H (98-107) mmol/L Carbon Dioxide 14 L (22-30) mmol/L BUN 78 H (9-20) mg/dL Creatinine 2.51 H (0.66-1.25) mg/dL Glucose 96 (74-99) mg/dL Calcium 6.3 L* (8.4-10.2) mg/dL Adrenal panel 09/15/22 Range/Units 10:23 Sodium 140 (137-145) mmol/L Potassium 5.8 H (3.5-5.1) mmol/L Chloride 114 H (98-107) mmol/L Carbon Dioxide 14 L (22-30) mmol/L BUN 78 H (9-20) mg/dL Creatinine 2.51 H (0.66-1.25) mg/dL Glucose 96 (74-99) mg/dL Calcium 6.3 L* (8.4-10.2) mg/dL - Imaging CT scan - abdomen: image reviewed (bilateral hydronephrosis, dilated ureter down to the bladder) Assessment and Plan Assessment: this is a 79-year-old female with history of metastatic prostate cancer. He's admitted to the hospital with acute kidney injury and acute blood loss anemia. CT showed evidence of bilateral hydronephrosis review of images show dilated ureter down to the bladder. He does have chronic bilateral hydronephrosis. creatinine 2.6 on admission down to 2.5 with hydration Mckeon catheter. His baseline from from last year is 1.3. At this time recommend keeping Mckeon catheter in place, we'll continue to trend creatinine. His bilateral hydronephrosis chronic. -Keep Mckeon catheter in place Continue to trend creatinine
[2022-09-16] MEDS ORDERED: FUROSEMIDE 40 MG TAB PO SCH (09:00)
[2022-09-16 10:27] LABS: Potassium 5.4 mmol/L (3.5-5.1)
[2022-09-16 10:30] LABS: Calcium 6.3 mg/dL (8.4-10.2)
[2022-09-16 10:36] LABS: Anisocytosis Moderate; HCT 21.4 % (39.0-53.0); Hypochromasia Marked; MCHC 31.4 g/dL (31.0-37.0); MCV 95.6 fL (80.0-100.0); Macrocytosis Slight; Mean Platelet Volume 12.8; Poikilocytosis Marked; RBC 2.24 m/uL (4.30-5.90); RDW 20.6 % (11.5-15.5)
[2022-09-16 10:43] LABS: HGB 6.7 gm/dL (13.0-17.5); Platelet Count 52 k/uL (150-450)
[2022-09-16] MEDS: SODIUM BICARBONATE TAB 650 MG TAB PO SCH ×2 (10:43→20:36)
[2022-09-16] MEDS: METOPROLOL SUCCINATE (ER) 25 MG TAB.ER.24H PO SCH (10:43)
[2022-09-16] MEDS: FERROUS SULFATE 325 MG TAB PO SCH ×2 (10:43→20:36)
[2022-09-16] MEDS ORDERED: CALCIUM GLUCONATE IN NACL 1 GM in SALINE 1 100ML.BAG IVPB ONE (10:54)
--- NOTE | 2022-09-16 11:06 | P.PN ---
Subjective This is a pleasant 87 years old male with multiple medical problems including lung cancer, prostate cancer and chronic chest and back pain. His PCP is Dr. rodriguez, urologist Dr. Hernandez, steam and power supervisor Dr. Alejandro, oncologist Dr. Cornejo Presents because of weakness and disorientation. Patient states that he presents because he felt congested and could not breathe well for the last 2 weeks associated with poor appetite and chest pain. Breasts lower anterior chest wall for the last 2 week 5/10 in severity. Nonradiating pain of his other He also has some cough and phlegm. No nausea vomiting or diarrhea, no abdominal pain, denies blood per in his s tool, no black stool and brown in color, no urinary complaint. Mckeon catheter was placed in the emergency room but patient denies dysuria or change in frequency prior to that. No headache or weakness or numbness or dizziness. No slurred speech or blurred vision. Patient denies smoking cigarettes or illicit drugs, uses alcohol occasionally Patient was taken his Eliquis at home, he says also has been taking Motrin prescribed for him several days for his chest pain. on Admission his mildly tachycardic at 105, he is slightly hypoxic 94% on room air. Baseline walks using a walker. Blood pressure currently 114/62 and patient is afebrile. Labs showing normal WBC at 8, hemoglobin low at 6.7, last reading was 7.7 about 6 days ago. Platelet count is 57 INR is 1.2. Creatinine is elevated 2.6 and 2.32 days ago, baseline is 1.0-1.3 Urinalysis is suspicious for infection EKG showing atrial flutter with a rate of 101 CT of the abdomen and pelvis without contrast, bilateral hydronephrosis and hydroureter, unchanged on the right side and increase on the left side. Ureters are dilated down to the bladder. Bladder distance smoothly. No evidence of pelvic mass but there is likely prostate surgery. Patient started on ceftriaxone and IV fluids 09/16/2022 Patient with generalized weakness, he had epistaxis yesterday but thus stop today. No other evidence of bleeding from anywhere else. No much urinary symptoms and he had normal bowel movement yesterday. His appetite is good. However he looks tired and lethargic. Hemoglobin dropped again 6.7, went up yesterday to 7.2 after 1 unit of blood transfusion, anemia workup showing anemia of chronic disease. Most likely related to his cancer. 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 He still tachycardic with borderline blood pressure 101/61. Ejection fraction from echocardiogram in 2019 was 50-55%. PSA is elevated 933. Pro-calcitonin is elevated 1.0 Patient remains on ceftriaxone 1 g twice a day and normal saline at 100 mL per hour Bladder scan More Than 300 Objective - Vital Signs Vital signs: Vital Signs Temp 98.0 F 09/16/22 04:00 Pulse 112 H 09/16/22 04:00 Resp 18 09/16/22 04:00 BP 101/61 09/16/22 04:00 Pulse Ox 91 L 09/16/22 04:00 FiO2 Intake & Output 09/15/22 09/16/22 09/16/22 18:59 06:59 18:59 Intake Total 310 180 Output Total 350 625 250 Balance -40 -625 -70 Weight 86.183 kg Intake: Oral 180 Blood Product 310 Rc As-1 Unit 310 [id number] Output: Urine 350 625 250 Other: Voiding Method Indwelling Catheter Indwelling Catheter # Bowel Movements 1 - Labs CBC & Chem 7: 09/16/22 08:57 09/16/22 08:57 Labs: Abnormal Lab Results - Last 24 Hours (Table) 09/15/22 09/15/22 09/15/22 Range/Units 03:02 10:23 10:23 RBC 2.35 L (4.30-5.90) m/uL Hgb 7.2 L (13.0-17.5) gm/dL Hct 22.7 L (39.0-53.0) % RDW 20.2 H (11.5-15.5) % Plt Count 55 L (150-450) k/uL Blast Cells % 3 H* % Metamyelocytes # (Man) 0.16 H (0) k/uL Myelocytes # (Manual) 0.16 H (0) k/uL Blast Cells # (Man) 0.24 H (0) k/uL Nucleated RBCs 40 H (0-0) /100 WBC Pathologist Review See comment A Retic Count (0.5-2.0) % Fibrinogen (200-500) mg/dL Potassium 5.8 H (3.5-5.1) mmol/L Chloride 114 H (98-107) mmol/L Carbon Dioxide 14 L (22-30) mmol/L BUN 78 H (9-20) mg/dL Creatinine 2.51 H (0.66-1.25) mg/dL Calcium 6.3 L* (8.4-10.2) mg/dL Iron (65-175) ug/dL Ferritin (22.0-322.0) ng/mL Troponin I (0.000-0.034) ng/mL Prostate Specific Ag (0.00-6.50) ng/mL Vitamin B12 (200.0-944.0) pg/mL Procalcitonin (0.02-0.09) ng/mL Crossmatch See Detail 09/15/22 09/15/22 09/15/22 Range/Units 10:23 10:23 13:26 RBC (4.30-5.90) m/uL Hgb (13.0-17.5) gm/dL Hct (39.0-53.0) % RDW (11.5-15.5) % Plt Count (150-450) k/uL Blast Cells % % Metamyelocytes # (Man) (0) k/uL Myelocytes # (Manual) (0) k/uL Blast Cells # (Man) (0) k/uL Nucleated RBCs (0-0) /100 WBC Pathologist Review Retic Count 5.0 H (0.5-2.0) % Fibrinogen (200-500) mg/dL Potassium (3.5-5.1) mmol/L Chloride (98-107) mmol/L Carbon Dioxide (22-30) mmol/L BUN (9-20) mg/dL Creatinine (0.66-1.25) mg/dL Calcium (8.4-10.2) mg/dL Iron (65-175) ug/dL Ferritin (22.0-322.0) ng/mL Troponin I 0.051 H* (0.000-0.034) ng/mL Prostate Specific Ag (0.00-6.50) ng/mL Vitamin B12 (200.0-944.0) pg/mL Procalcitonin 1.04 H (0.02-0.09) ng/mL Crossmatch 09/15/22 09/15/22 09/16/22 Range/Units 13:26 13:26 08:57 RBC 2.24 L (4.30-5.90) m/uL Hgb 6.7 L* (13.0-17.5) gm/dL Hct 21.4 L (39.0-53.0) % RDW 20.6 H (11.5-15.5) % Plt Count (150-450) k/uL Blast Cells % % Metamyelocytes # (Man) (0) k/uL Myelocytes # (Manual) (0) k/uL Blast Cells # (Man) (0) k/uL Nucleated RBCs (0-0) /100 WBC Pathologist Review Retic Count (0.5-2.0) % Fibrinogen 522 H (200-500) mg/dL Potassium (3.5-5.1) mmol/L Chloride (98-107) mmol/L Carbon Dioxide (22-30) mmol/L BUN (9-20) mg/dL Creatinine (0.66-1.25) mg/dL Calcium (8.4-10.2) mg/dL Iron 192 H (65-175) ug/dL Ferritin 366.0 H (22.0-322.0) ng/mL Troponin I (0.000-0.034) ng/mL Prostate Specific Ag 933.00 H (0.00-6.50) ng/mL Vitamin B12 1289.0 H (200.0-944.0) pg/mL Procalcitonin (0.02-0.09) ng/mL Crossmatch 09/16/22 Range/Units 08:57 RBC (4.30-5.90) m/uL Hgb (13.0-17.5) gm/dL Hct (39.0-53.0) % RDW (11.5-15.5) % Plt Count (150-450) k/uL Blast Cells % % Metamyelocytes # (Man) (0) k/uL Myelocytes # (Manual) (0) k/uL Blast Cells # (Man) (0) k/uL Nucleated RBCs (0-0) /100 WBC Pathologist Review Retic Count (0.5-2.0) % Fibrinogen (200-500) mg/dL Potassium 5.4 H (3.5-5.1) mmol/L Chloride 117 H (98-107) mmol/L Carbon Dioxide 13 L (22-30) mmol/L BUN 73 H (9-20) mg/dL Creatinine 2.12 H (0.66-1.25) mg/dL Calcium 6.3 L* (8.4-10.2) mg/dL Iron (65-175) ug/dL Ferritin (22.0-322.0) ng/mL Troponin I (0.000-0.034) ng/mL Prostate Specific Ag (0.00-6.50) ng/mL Vitamin B12 (200.0-944.0) pg/mL Procalcitonin (0.02-0.09) ng/mL Crossmatch Assessment and Plan Assessment: Anemia of chronic disease. Less likely acute blood loss anemia acute kidney injury on chronic kidney disease with hyperkalemia, could be renal in secondary to obstructive uropathy Bilateral hydronephrosis and hydroureter, same on the right side and decrease on the left side. Secondary to prostatic disease Prostate cancer undergoing therapy with Dr. Cornejo Mostly asymptomatic bacteriuria, less likely Acute urinary tract infection, cannot entirely exclude it. Elevated troponin , secondary to anemia Thrombocytopenia Epistaxis stopped Atrial fibrillation, status post pacemaker, was on Eliquis at home CKD stage III History of GERD History of lung cancer Hypertension Hyperlipidemia Hearing difficulties History of depression, not an active issue Plan: Continue with ceftriaxone follow-up urine culture Continue gentle hydration Patients with anemia of chronic disease, check for occult blood in stool Monitor creatinine Hold lisinopril avoid NSAIDs His urologist is Dr. Parrish whom will be consulted Cardiology consult follow-up recommendation of ENT and motility oncology team Labs and medication were reviewed.. Continue same treatment. Continue with symptomatic treatment. Resume home medication. Monitor labs and vitals. DVT a nd GI prophylaxis. Further recommendations as per clinical course of the patient DVT prophylaxis: Eliquis [on hold], continue with mechanical GI Prophylaxis: Ppi PT/OT: Pending Prognosis is guarded
--- NOTE | 2022-09-16 11:12 | P.PN ---
Subjective Progress Note Date: 09/16/22 History of present illness: History of present illness: This is an 87-year-old male patient of Dr. 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 Patient presented to the hospital due to generalized weakness is progressively worsening over the past 6 months and has had significant decline since July. Patient also had epistaxis over at that time eliquis was discontinued after speaking with Dr. Cornejo, however, the patient continued to take the medication until today. There is concern the patient has increased confusion. We've been asked to see the patient due to elevated troponins * EKG is atrial fibrillation at 101 bpm, nonspecific ST-T wave changes * Chest x-ray reveals right upper lobe irregular bordered density at the medial aspect near the first rib and corresponding findings on recent CAT scan. * CAT scan of the abdomen and pelvis revealed bilateral hydronephrosis and hydroureter which is unchanged on the right side and increased on the left side compared to old exams. Mild atelectasis at the posterior lung bases. Osseous metastatic disease. * CAT scan of the brain revealed moderate cerebral atrophy. No acute intracranial abnormality. No skin change compared to old exam. * Laboratory studies: WBC 8, hemoglobin 6.7, platelet count 57. Sodium 138, potassium 5.9, chloride 113, CO2 15, BUN 80 creatinine 2.6, blood sugar 107. Troponin 0.043 and 0.051. ProBNP 8700. Influenza A and influenza B not detected. * Echocardiogram 04/2020 revealed EF of 50-55%, mild concentric left ventricular hypertrophy, mild mitral regurgitation, mild tricuspid regurg, moderate pulmonary hypertension, estimated right atrial pressure greater than 50 mmHg. * Home cardiac medications: Eliquis 5 mg twice daily(stopped on 09/15), atorvastatin 40 mg at bedtime, Zetia 10 mg at bedtime, Lasix 40 mg alternating with 20 mg, Toprol-XL 12.5 mg daily 09/16 Patient noted to have continued confusion this morning. He denies having chest pain or shortness of breath. 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 Heart rate has been well controlled this morning through the night was in the low 100s. Blood pressure 128/58. Repeat hemoglobin is 6.7, BUN 70, creatinine 2.12. Echocardiogram to be obtained today. Physical examination: Gen: This is an 87-year-old male. He is resting in bed in no acute distress VS: Reviewed HEENT: Head is atraumatic, normocephalic. Pupils equal, round. Sclerae is anicteric. NECK: Supple. No JVD. No lymphadenopathy. No thyromegaly. LUNGS: Diminished bilaterally. Clear to auscultation. No wheezes or rhonchi. No intercostal retractions. HEART: Irregular rate and rhythm. No murmur. ABDOMEN: Soft. Bowel sounds are present. No masses. No tenderness. EXTREMITIES: 1+ bilateral pedal edema. No calf tenderness. NEUROLOGICAL: Patient is awake, alert, mild confusion. Assessment: Elevated troponins secondary to anemia, not consistent with acute coronary syndrome Generalized weakness and fatigue Severe chronic anemia status post transfusion 1 unit packed RBCs Epistaxis Chronic diastolic heart failure Hypertension Dyslipidemia Chronic atrial fibrillation Bradycardia status post prior to pacemaker Metastatic prostate cancer Hydronephrosis Plan: Continue patient's home cardiac medications including atorvastatin, Zetia, Lasix, Toprol-XL Discontinue eliquis Due to anemia Obtain 2-D echocardiogram and Doppler study to assess cardiac structure and function Further recommendations to follow based upon clinical course Thank you kindly for this consultation. Nurse practitioner note has been reviewed, I agree with documented findings and plan of care. Patient was seen and examined. Objective - Vital Signs Vital signs: Vital Signs Temp 98.0 F 09/16/22 04:00 Pulse 112 H 09/16/22 04:00 Resp 18 09/16/22 04:00 BP 101/61 09/16/22 04:00 Pulse Ox 91 L 09/16/22 04:00 FiO2 Intake & Output 09/15/22 09/16/22 09/16/22 18:59 06:59 18:59 Intake Total 310 Output Total 350 625 Balance -40 -625 Weight 86.183 kg Intake: Blood Product 310 Rc As-1 Unit 310 [id number] Output: Urine 350 625 Other: Voiding Method Indwelling Catheter Indwelling Catheter # Bowel Movements 1 - Labs CBC & Chem 7: 09/16/22 08:57 09/16/22 08:57 Labs: Abnormal Lab Results - Last 24 Hours (Table) 09/15/22 09/15/22 09/15/22 Range/Units 10:23 10:23 10:23 RBC 2.35 L (4.30-5.90) m/uL Hgb 7.2 L (13.0-17.5) gm/dL Hct 22.7 L (39.0-53.0) % RDW 20.2 H (11.5-15.5) % Plt Count 55 L (150-450) k/uL Blast Cells % 3 H* % Metamyelocytes # (Man) 0.16 H (0) k/uL Myelocytes # (Manual) 0.16 H (0) k/uL Blast Cells # (Man) 0.24 H (0) k/uL Nucleated RBCs 40 H (0-0) /100 WBC Retic Count (0.5-2.0) % Fibrinogen (200-500) mg/dL Potassium 5.8 H (3.5-5.1) mmol/L Chloride 114 H (98-107) mmol/L Carbon Dioxide 14 L (22-30) mmol/L BUN 78 H (9-20) mg/dL Creatinine 2.51 H (0.66-1.25) mg/dL Calcium 6.3 L* (8.4-10.2) mg/dL Iron (65-175) ug/dL Ferritin (22.0-322.0) ng/mL Troponin I 0.051 H* (0.000-0.034) ng/mL Prostate Specific Ag (0.00-6.50) ng/mL Vitamin B12 (200.0-944.0) pg/mL Procalcitonin (0.02-0.09) ng/mL 09/15/22 09/15/22 09/15/22 Range/Units 10:23 13:26 13:26 RBC (4.30-5.90) m/uL Hgb (13.0-17.5) gm/dL Hct (39.0-53.0) % RDW (11.5-15.5) % Plt Count (150-450) k/uL Blast Cells % % Metamyelocytes # (Man) (0) k/uL Myelocytes # (Manual) (0) k/uL Blast Cells # (Man) (0) k/uL Nucleated RBCs (0-0) /100 WBC Retic Count 5.0 H (0.5-2.0) % Fibrinogen 522 H (200-500) mg/dL Potassium (3.5-5.1) mmol/L Chloride (98-107) mmol/L Carbon Dioxide (22-30) mmol/L BUN (9-20) mg/dL Creatinine (0.66-1.25) mg/dL Calcium (8.4-10.2) mg/dL Iron (65-175) ug/dL Ferritin (22.0-322.0) ng/mL Troponin I (0.000-0.034) ng/mL Prostate Specific Ag (0.00-6.50) ng/mL Vitamin B12 (200.0-944.0) pg/mL Procalcitonin 1.04 H (0.02-0.09) ng/mL 09/15/22 Range/Units 13:26 RBC (4.30-5.90) m/uL Hgb (13.0-17.5) gm/dL Hct (39.0-53.0) % RDW (11.5-15.5) % Plt Count (150-450) k/uL Blast Cells % % Metamyelocytes # (Man) (0) k/uL Myelocytes # (Manual) (0) k/uL Blast Cells # (Man) (0) k/uL Nucleated RBCs (0-0) /100 WBC Retic Count (0.5-2.0) % Fibrinogen (200-500) mg/dL Potassium (3.5-5.1) mmol/L Chloride (98-107) mmol/L Carbon Dioxide (22-30) mmol/L BUN (9-20) mg/dL Creatinine (0.66-1.25) mg/dL Calcium (8.4-10.2) mg/dL Iron 192 H (65-175) ug/dL Ferritin 366.0 H (22.0-322.0) ng/mL Troponin I (0.000-0.034) ng/mL Prostate Specific Ag 933.00 H (0.00-6.50) ng/mL Vitamin B12 1289.0 H (200.0-944.0) pg/mL Procalcitonin (0.02-0.09) ng/mL
[2022-09-16 11:55] VITALS: BMI 25.0
[2022-09-16 14:16] LABS: Band Neutrophils % 3 %; Myelocytes % 2 %; Neutrophils % (M) 54 %; Nucleated Red Blood Cells 12 /100 WBC (0-0); Total Cells Counted 200
[2022-09-16 14:17] LABS: Basophils # (M) 0.09 k/uL (0-0.2); Blast Cells # (M) 0.09 k/uL (0); Eosinophils # (M) 0.35 k/uL (0-0.7); Monocytes # (M) 0.61 k/uL (0-1.0); Myelocytes # (M) 0.17 k/uL (0); Polychromasia Present; WBC 8.7 k/uL (3.8-10.6)
--- NOTE | 2022-09-16 16:21 | P.PN ---
Subjective Progress Note Date: 09/16/22 Patient continues to have significant generalized weakness. He appears comfortable laying in bed. He denies any new pain, fevers or chills. No obvious bleeding. Objective - Vital Signs Vital signs: Vital Signs Temp 98.1 F 09/16/22 15:52 Pulse 112 H 09/16/22 15:52 Resp 16 09/16/22 15:52 BP 94/55 09/16/22 15:52 Pulse Ox 92 L 09/16/22 15:52 FiO2 Intake & Output 09/15/22 09/16/22 09/16/22 18:59 06:59 18:59 Intake Total 310 180 Output Total 350 625 250 Balance -40 -625 -70 Weight 86.183 kg 86.183 kg Intake: Oral 180 Blood Product 310 0 Unit 0 Rc As-1 Unit 310 [id number] Output: Urine 350 625 250 Other: Voiding Method Indwelling Catheter Indwelling Catheter Indwelling Catheter # Bowel Movements 1 - Constitutional General appearance: Present: no acute distress - EENT Eyes: Present: EOMI ENT: Present: hearing grossly normal, normal oropharynx - Respiratory Respiratory: bilateral: CTA - Cardiovascular Rhythm: irregularly irregular Heart sounds: normal: S1, S2 - Gastrointestinal General gastrointestinal: Present: normal bowel sounds, soft - Integumentary Integumentary: Present: pale - Neurologic Neurologic: Present: CNII-XII intact - Musculoskeletal Musculoskeletal: Present: generalized weakness, strength equal bilaterally - Psychiatric Psychiatric: Present: A&O x's 3, appropriate affect - Labs CBC & Chem 7: 09/16/22 08:57 09/16/22 08:57 Labs: Abnormal Lab Results - Last 24 Hours (Table) 09/15/22 09/15/22 09/15/22 Range/Units 03:02 10:23 10:23 RBC 2.35 L (4.30-5.90) m/uL Hgb 7.2 L (13.0-17.5) gm/dL Hct 22.7 L (39.0-53.0) % RDW 20.2 H (11.5-15.5) % Plt Count 55 L (150-450) k/uL Blast Cells % 3 H* % Metamyelocytes # (Man) 0.16 H (0) k/uL Myelocytes # (Manual) 0.16 H (0) k/uL Blast Cells # (Man) 0.24 H (0) k/uL Nucleated RBCs 40 H (0-0) /100 WBC Pathologist Review See comment A Potassium (3.5-5.1) mmol/L Chloride (98-107) mmol/L Carbon Dioxide (22-30) mmol/L BUN (9-20) mg/dL Creatinine (0.66-1.25) mg/dL Calcium (8.4-10.2) mg/dL Iron (65-175) ug/dL Ferritin (22.0-322.0) ng/mL Prostate Specific Ag (0.00-6.50) ng/mL Vitamin B12 (200.0-944.0) pg/mL RBC Folate (280 - 791) ng/mL Procalcitonin 1.04 H (0.02-0.09) ng/mL Crossmatch See Detail 09/15/22 09/15/22 09/16/22 Range/Units 13:26 13:26 08:57 RBC 2.24 L (4.30-5.90) m/uL Hgb 6.7 L* (13.0-17.5) gm/dL Hct 21.4 L (39.0-53.0) % RDW 20.6 H (11.5-15.5) % Plt Count 52 L (150-450) k/uL Blast Cells % 1 H* % Metamyelocytes # (Man) (0) k/uL Myelocytes # (Manual) 0.17 H (0) k/uL Blast Cells # (Man) 0.09 H (0) k/uL Nucleated RBCs 12 H (0-0) /100 WBC Pathologist Review Potassium (3.5-5.1) mmol/L Chloride (98-107) mmol/L Carbon Dioxide (22-30) mmol/L BUN (9-20) mg/dL Creatinine (0.66-1.25) mg/dL Calcium (8.4-10.2) mg/dL Iron 192 H (65-175) ug/dL Ferritin 366.0 H (22.0-322.0) ng/mL Prostate Specific Ag 933.00 H (0.00-6.50) ng/mL Vitamin B12 1289.0 H (200.0-944.0) pg/mL RBC Folate 1,298 H (280 - 791) ng/mL Procalcitonin (0.02-0.09) ng/mL Crossmatch 09/16/22 Range/Units 08:57 RBC (4.30-5.90) m/uL Hgb (13.0-17.5) gm/dL Hct (39.0-53.0) % RDW (11.5-15.5) % Plt Count (150-450) k/uL Blast Cells % % Metamyelocytes # (Man) (0) k/uL Myelocytes # (Manual) (0) k/uL Blast Cells # (Man) (0) k/uL Nucleated RBCs (0-0) /100 WBC Pathologist Review Potassium 5.4 H (3.5-5.1) mmol/L Chloride 117 H (98-107) mmol/L Carbon Dioxide 13 L (22-30) mmol/L BUN 73 H (9-20) mg/dL Creatinine 2.12 H (0.66-1.25) mg/dL Calcium 6.3 L* (8.4-10.2) mg/dL Iron (65-175) ug/dL Ferritin (22.0-322.0) ng/mL Prostate Specific Ag (0.00-6.50) ng/mL Vitamin B12 (200.0-944.0) pg/mL RBC Folate (280 - 791) ng/mL Procalcitonin (0.02-0.09) ng/mL Crossmatch Assessment and Plan (1) Bicytopenia Narrative/Plan: Workup for her deficiency states and hemolysis is negative. Workup for DIC is also negative. Based on the patient's differential is significant left shift, most likely etiology is direct invasion of the bone marrow with prostate cancer - This was discussed with the patient, and his daughter were at the bedside. They were advised that this is consistent with an aggressive course, and typically indicates poor prognosis. Usually in this case progression chemot herapy as a treatment option would be likely to obtain responses fast enough to improve the patient's situation. However the patient is not a candidate for conventional chemotherapy as discussed with Dr. Cornejo - Other treatment options, including a targeted agent if the patient has an appropriate biomarker, or a different ARB are available, onset of action is typically slow than conventional chemotherapy and therefore efficacy may be optimal in this situation. They expressed understanding of the same. - At this time the patient will be treated supportively with Transfusion to keep hemoglobin greater than 7, And platelets greater than 10. As some amount of blood loss cannot be totally ruled out it would be reasonable to hold anticoagulation at this time - A different ARB or targeted agent typically cannot be started inpatient. If the patient continues to decline despite ongoing supportive care, indicating rapid progression of malignancy, then any active treatment options would be very limited. In that situation consideration of comfort care would be quite appropriate. They expressed understanding of the same. 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
[2022-09-16] MEDS ORDERED: FUROSEMIDE 10 MG/ML 4 ML VIAL IV ONE (18:30)
[2022-09-16] MEDS: PANTOPRAZOLE 40 MG TABLET PO SCH (20:36)
[2022-09-16] MEDS: EZETIMIBE 10 MG TAB PO SCH (20:36)
[2022-09-16] MEDS: ATORVASTATIN 40 MG TAB PO SCH (20:36)
--- NOTE | 2022-09-16 21:01 | CA ---
Transthoracic Echo Report Name: Walter Elder Age: 87 Gender: M : 1935 Exam Date: 09/16/2022 09:59 Exam Location: [place] [facility] Ht (in): 73 Wt (lb): 190 Ordering Physician: Yg Lindsay MD ([id number]) Attending/Referring Phys: Angélica HERRERA Machine Worker Aline Tinoco RDCS Procedure CPT: Indications: heart function Cardiac Hx: Technical Quality: Fair Contrast 1: Total Dose (mL): Contrast 2: Total Dose (mL): MEASUREMENTS (Male / Female) Normal Values 2D ECHO LV Diastolic Diameter PLAX 4.1 cm 4.2 - 5.9 / 3.9 - 5.3 cm LV Systolic Diameter PLAX 3.5 cm IVS Diastolic Thickness 1.4 cm 0.6 - 1.0 / 0.6 - 0.9 cm LVPW Diastolic Thickness 1.6 cm 0.6 - 1.0 / 0.6 - 0.9 cm LV Relative Wall Thickness 0.7 RV Internal Dim ED PLAX 3.1 cm LA Systolic Diameter LX 4.1 cm 3.0 - 4.0 / 2.7 - 3.8 cm M-MODE Aortic Root Diameter MM 3.5 cm MV E Point Septal Separation 0.3 cm AV Cusp Separation MM 2.3 cm DOPPLER AV Peak Velocity 118.9 cm/s AV Peak Gradient 5.7 mmHg TR Peak Velocity 317.9 cm/s TR Peak Gradient 40.4 mmHg Right Ventricular Systolic Press 54.0 mmHg FINDINGS Left Ventricle Left ventricular ejection fraction is estimated at 50-55 %. Left ventricular cavity size normal. Moderate concentric left ventricular hypertrophy. Right Ventricle Normal right ventricular size. Moderate pulmonary hypertension. Right Atrium Normal right atrial size. Left Atrium Mild left atrial dilatation. No evidence for an atrial septal defect. Mitral Valve Structurally normal mitral valve. No mitral stenosis, regurgitation or prolapse. Aortic Valve Trileaflet aortic valve. No aortic valve stenosis or regurgitation. Tricuspid Valve Mild tricuspid regurgitation. Pulmonic Valve Pulmonic valve not well visualized. Pericardium Normal pericardium. No pericardial effusion. Aorta Normal size aortic root and proximal ascending aorta. CONCLUSIONS Left ventricle size is normal with preserved systolic function mild to moderate concentric LVH. No significant abnormality in the Doppler exam. No pericardial effusion Previewed by: Dr. Mendoza Shin MD (Electronically Signed) Final Date: 16 September 2022 21:01
[2022-09-17] MEDS: SODIUM CHLORIDE 0.9% 1,000 ML IV SCH ×2 (03:43→17:03)
[2022-09-17 05:15] LABS: Methylmalonic Acid 0.25 umol/L (<0.40)
[2022-09-17] MEDS: METOPROLOL SUCCINATE (ER) 25 MG TAB.ER.24H PO SCH (08:58)
[2022-09-17] MEDS: SODIUM BICARBONATE TAB 650 MG TAB PO SCH ×2 (08:59→21:16)
[2022-09-17] MEDS: FERROUS SULFATE 325 MG TAB PO SCH ×2 (08:59→21:16)
[2022-09-17] MEDS ORDERED: METOPROLOL SUCCINATE (ER) 25 MG TAB.ER.24H PO STA (11:49)
[2022-09-17] MEDS: FUROSEMIDE 20 MG TAB PO SCH (11:50)
--- NOTE | 2022-09-17 13:42 | P.PN ---
Subjective This is a pleasant 87 years old male with multiple medical problems including lung cancer, prostate cancer and chronic chest and back pain. His PCP is Dr. rodriguez, urologist Dr. Hernandez, auto radiator specialist Dr. Alejandro, oncologist Dr. Cornejo Presents because of weakness and disorientation. Patient states that he presents because he felt congested and could not breathe well for the last 2 weeks associated with poor appetite and chest pain. Breasts lower anterior chest wall for the last 2 week 5/10 in severity. Nonradiating pain of his other He also has some cough and phlegm. No nausea vomiting or diarrhea, no abdominal pain, denies blood per in his s tool, no black stool and brown in color, no urinary complaint. Mckeon catheter was placed in the emergency room but patient denies dysuria or change in frequency prior to that. No headache or weakness or numbness or dizziness. No slurred speech or blurred vision. Patient denies smoking cigarettes or illicit drugs, uses alcohol occasionally Patient was taken his Eliquis at home, he says also has been taking Motrin prescribed for him several days for his chest pain. on Admission his mildly tachycardic at 105, he is slightly hypoxic 94% on room air. Baseline walks using a walker. Blood pressure currently 114/62 and patient is afebrile. Labs showing normal WBC at 8, hemoglobin low at 6.7, last reading was 7.7 about 6 days ago. Platelet count is 57 INR is 1.2. Creatinine is elevated 2.6 and 2.32 days ago, baseline is 1.0-1.3 Urinalysis is suspicious for infection EKG showing atrial flutter with a rate of 101 CT of the abdomen and pelvis without contrast, bilateral hydronephrosis and hydroureter, unchanged on the right side and increase on the left side. Ureters are dilated down to the bladder. Bladder distance smoothly. No evidence of pelvic mass but there is likely prostate surgery. Patient started on ceftriaxone and IV fluids 09/16/2022 Patient with generalized weakness, he had epistaxis yesterday but thus stop today. No other evidence of bleeding from anywhere else. No much urinary symptoms and he had normal bowel movement yesterday. His appetite is good. However he looks tired and lethargic. Hemoglobin dropped again 6.7, went up yesterday to 7.2 after 1 unit of blood transfusion, anemia workup showing anemia of chronic disease. Most likely related to his cancer. 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 He still tachycardic with borderline blood pressure 101/61. Ejection fraction from echocardiogram in 2019 was 50-55%. PSA is elevated 933. Pro-calcitonin is elevated 1.0 Patient remains on ceftriaxone 1 g twice a day and normal saline at 100 mL per hour Bladder scan More Than 300 09/17/2022 Patient awake alert but looks very lethargic and tired, he answers questions. Briefly and follow commands. His hemoglobin yesterday was 6.7, and there was 1-3+ in the blood, platelet count 52. Creatinine 2.1. He is kept on ceftriaxone and normal saline at 100 with metoprolol added today However his prognosis still guarded, Dr. Aj from hematology/oncology team discussed the case with the patient and family and they are considering hospice and comfort care currently I discussed the case with the social work case manager and she told me about the family requested talk to hospice team which was consulted. Objective - Vital Signs Vital signs: Vital Signs Temp 98 F 09/17/22 08:55 Pulse 109 H 09/17/22 11:30 Resp 17 09/17/22 11:30 BP 106/58 09/17/22 11:30 Pulse Ox 91 L 09/17/22 11:30 FiO2 Intake & Output 09/16/22 09/17/22 09/17/22 18:59 06:59 18:59 Intake Total 360 283 180 Output Total 250 980 Balance 110 -697 180 Weight 86.183 kg Intake: Oral 360 180 Blood Product 0 283 Rc Pheresis As-3 Unit 0 283 [id number] Output: Urine 250 980 Uretheral (Mckeon) 980 Other: Voiding Method Indwelling Catheter Indwelling Catheter Indwelling Catheter - Exam -GENERAL: The patient is alert and oriented x3, not in any acute distress. Well developed, well nourished. Generally weak and tired HEENT: Pupils are round and equally reacting to light. EOMI. No scleral icterus. No conjunctival pallor. Normocephalic, atraumatic. No pharyngeal erythema. No thyromegaly. CARDIOVASCULAR: S1 and S2 present. No murmurs, rubs, or gallops. PULMONARY: Chest is clear to auscultation, no wheezing or crackles. -ABDOMEN: Soft, nontender, nondistended, normoactive bowel sounds. No palpable organomegaly. Mckeon catheter and a Place MUSCULOSKELETAL: No joint swelling or deformity. EXTREMITIES: No cyanosis, clubbing, or pedal edema. NEUROLOGICAL: Gross neurological examination did not reveal any focal deficits. SKIN: No rashes. no petechiae. - Labs CBC & Chem 7: 09/16/22 08:57 09/16/22 08:57 Labs: Abnormal Lab Results - Last 24 Hours (Table) 09/15/22 09/16/22 Range/Units 03:02 08:57 Plt Count 52 L (150-450) k/uL Blast Cells % 1 H* % Myelocytes # (Manual) 0.17 H (0) k/uL Blast Cells # (Man) 0.09 H (0) k/uL Nucleated RBCs 12 H (0-0) /100 WBC Crossmatch See Detail Assessment and Plan Assessment: Anemia of chronic disease. Less likely acute blood loss anemia acute kidney injury on chronic kidney disease with hyperkalemia, could be renal in secondary to obstructive uropathy Bilateral hydronephrosis and hydroureter, same on the right side and decrease on the left side. Secondary to prostatic disease Prostate cancer undergoing therapy with Dr. Cornejo Mostly asymptomatic bacteriuria, less likely Acute urinary tract infection, cannot entirely exclude it. Elevated troponin , secondary to anemia Thrombocytopenia Epistaxis stopped Atrial fibrillation, status post pacemaker, was on Eliquis at home CKD stage III History of GERD History of lung cancer Hypertension Hyperlipidemia Hearing difficulties History of depression, not an active issue Plan: Continue with ceftriaxone follow-up urine culture Continue gentle hydration Patients with anemia of chronic disease, check for occult blood in stool Monitor creatinine Hold lisinopril avoid NSAIDs His urologist is Dr. Parrish whom will be consulted Cardiology consult follow-up recommendation of ENT and motility oncology team Labs and medication were reviewed.. Continue same treatment. Continue with symptomatic treatment. Resume home medication. Monitor labs and vitals. DVT and GI prophylaxis. Further recommendations as per clinical course of the patient DVT prophylaxis: Eliquis [on hold], continue with mechanical GI Prophylaxis: Ppi PT/OT: Pending Prognosis is guarded Family and patient considering hospice
[2022-09-17] MEDS: ATORVASTATIN 40 MG TAB PO SCH (21:16)
[2022-09-17] MEDS: PANTOPRAZOLE 40 MG TABLET PO SCH (21:16)
[2022-09-17] MEDS: EZETIMIBE 10 MG TAB PO SCH (21:16)
--- NOTE | 2022-09-17 23:29 | PN ---
PROGRESS NOTE SUBJECTIVE: Walter is an 87-year-old gentleman with history of atrial fibrillation, dyslipidemia, chronic diastolic heart failure, bradycardia status post permanent pacemaker, lung mass, and prostatic cancer, presented to hospital with progressive fatigue, weakness and tiredness, and was found to have severe anemia, requiring blood transfusion. Cardiology was consulted because of history of atrial fibrillation and the Eliquis that he is taking. OBJECTIVE: VITAL SIGNS: Heart rate is elevated at 110 beats per minute, blood pressure is 122/59, respiratory rate 18, O2 saturation is 91%. NECK: There is no jugular venous distention. CHEST: Reveals good air entry bilaterally. HEART: Reveals first and second heart sounds, irregular rhythm, and a systolic murmur at the apex. ABDOMEN: Soft. EXTREMITIES: Revealed mild edema. Peripheral pulses are felt. MEDICATIONS: The patient is currently on: 1. Lipitor. 2. Zetia. 3. Lasix. 4. Toprol. LABORATORY DATA: Labs show a hemoglobin of 6.7 from yesterday. I do not have labs from today. Potassium is 5.4, BUN and creatinine are elevated. ASSESSMENT AND PLAN: 1. Atrial fibrillation with poorly controlled ventricular rate. 2. Anemia. The patient is not a candidate for anticoagulation. An echocardiogram today shows normal LV systolic function. We will increase the dose of Toprol to better control the heart rate. MMODL / IJN: [id number] /
[2022-09-18] MEDS: SODIUM CHLORIDE 0.9% 1,000 ML IV SCH (00:24)
[2022-09-18 04:45] VITALS: RESP 20
[2022-09-18 08:24] VITALS: PULSE 123
[2022-09-18 08:25] VITALS: BP 106/60; TEMP 97.8
[2022-09-18] MEDS ORDERED: METOPROLOL SUCCINATE (ER) 25 MG TAB.ER.24H PO SCH (09:00)
--- NOTE | 2022-09-19 16:33 | P.DS ---
Providers Date of admission: 09/15/22 03:26 Attending physician: Yu Costa Consults: 09/15/22 03:36 Consult Physician Urgent Consulting Provider: Miguel Cornejo Consult Reason/Comments: metastatic prostate cancer Do you want consulting provider notified?: Yes Consult Physician Urgent Consulting Provider: Fran Alexis Consult Reason/Comments: epistaxsis with abla Do you want consulting provider notified?: Yes 09/15/22 09:16 Consult Physician Routine Consulting Provider: Yg Lindsay Consult Reason/Comments: elevated troponin and chest pain Do you want consulting provider notified?: Yes 09/15/22 09:28 Consult Physician Routine Consulting Provider: Osvaldo Hernandez Consult Reason/Comments: hydronephrosis Do you want consulting provider notified?: Yes Primary care physician: [facility] Course: Diagnoses: Metastatic prostatic cancer, eligible for hospice care (besides other multiple complex medical conditions ) severe nemia of chronic disease. Less likely acute blood loss anemia acute kidney injury on chronic kidney disease with hyperkalemia, could be renal in secondary to obstructive uropathy Bilateral hydronephrosis and hydroureter, same on the right side and decrease on the left side. Secondary to prostatic disease Prostate cancer undergoing therapy with Dr. Cornejo Mostly asymptomatic bacteriuria, less likely Acute urinary tract infection, cannot entirely exclude it. Elevated troponin , secondary to anemia Thrombocytopenia Epistaxis stopped Atrial fibrillation, status post pacemaker, was on Eliquis at home CKD stage III History of GERD History of lung cancer Hypertension Hyperlipidemia Hearing difficulties History of depression, not an active issue Hospital course: This is a pleasant 87 years old male with multiple medical problems including lung cancer, prostate cancer and chronic chest and back pain. His PCP is Dr. rodriguez, urologist Dr. Hernandez, immersion metal cleaner Dr. Alejandro, oncologist Dr. Cornejo Presents because of weakness and disorientation. Patient states that he presents because he felt congested and could not breathe well for the last 2 weeks associated with poor appetite and chest pain. Breasts lower anterior chest wall for the last 2 week 5/10 in severity. Nonradiating pain of his other He also has some cough and phlegm. No nausea vomiting or diarrhea, no abdominal pain, denies blood per in his stool, no black stool and brown in color, no urinary complaint. Mckeon catheter was placed in the emergency room but patient denies dysuria or change in frequency prior to that. No headache or weakness or numbness or dizziness. No slurred speech or blurred vision. Patient denies smoking cigarettes or illicit drugs, uses alcohol occasionally Patient was taken his Eliquis at home, he says also has been taking Motrin prescribed for him several days for his chest pain. on Admission his mildly tachycardic at 105, he is slightly hypoxic 94% on room air. Baseline walks using a walker. Blood pressure currently 114/62 and luis ent is afebrile. Labs showing normal WBC at 8, hemoglobin low at 6.7, last reading was 7.7 about 6 days ago. Platelet count is 57 INR is 1.2. Creatinine is elevated 2.6 and 2.32 days ago, baseline is 1.0-1.3 Urinalysis is suspicious for infection EKG showing atrial flutter with a rate of 101 CT of the abdomen and pelvis without contrast, bilateral hydronephrosis and hydroureter, unchanged on the right side and increase on the left side. Ureters are dilated down to the bladder. Bladder distance smoothly. No evidence of pelvic mass but there is likely prostate surgery. Patient started on ceftriaxone and IV fluids 09/16/2022 Patient with generalized weakness, he had epistaxis yesterday but thus stop today. No other evidence of bleeding from anywhere else. No much urinary symptoms and he had normal bowel movement yesterday. His appetite is good. However he looks tired and lethargic. Hemoglobin dropped again 6.7, went up yesterday to 7.2 after 1 unit of blood transfusion, anemia workup showing anemia of chronic disease. Most likely related to his cancer. 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 He still tachycardic with borderline blood pressure 101/61. Ejection fraction from echocardiogram in 2019 was 50-55%. PSA is elevated 933. Pro-calcitonin is elevated 1.0 Patient remains on ceftriaxone 1 g twice a day and normal saline at 100 mL per hour Bladder scan More Than 300 09/17/2022 Patient awake alert but looks very lethargic and tired, he answers questions. Briefly and follow commands. His hemoglobin yesterday was 6.7, and there was 1-3+ in the blood, platelet count 52. Creatinine 2.1. He is kept on ceftriaxone and normal saline at 100 with metoprolol added today However his prognosis still guarded, Dr. Aj from hematology/oncology team discussed the case with the patient and family and they are considering hospice and comfort care currently I discussed the case with the cyanide case hardener and she told me about the family requested talk to hospice team which was consulted. 09/18/2022 Patient and family requested hospice care Admitting the patient this morning he was tachypneic and but not in distress, he looks comfortable he denies any pain. I told him the plan for him is to go home with hospice care and he agrees. Patient's eligible for hospice care per also recommendation of consultants Patient is with poor prognosis GENERAL: The patient is alert and oriented x3, . Well developed, well nourished. HEENT: Pupils are round and equally reacting to light. EOMI. No scleral icterus. No conjunctival pallor. Normocephalic, atraumatic. No pharyngeal erythema. No thyromegaly. CARDIOVASCULAR: S1 and S2 present. No murmurs, rubs, or gallops. -PULMONARY: Chest is clear to auscultation, no wheezing or crackles. Mildly tachypneic ABDOMEN: Soft, nontender, nondistended, normoactive bowel sounds. No palpable organomegaly. MUSCULOSKELETAL: No joint swelling or deformity. EXTREMITIES: No cyanosis, clubbing, or pedal edema. NEUROLOGICAL: Gross neurological examination did not reveal any focal deficits. SKIN: No rashes. no petechiae. Time spent more than 35 minutes Patient Condition at Discharge: Stable Plan - Discharge Summary New Discharge Prescriptions: New cefUROXime axetiL [Cefuroxime] 500 mg PO BID 5 Days #10 tab Ferrous Sulfate [Iron (65 MG Elemental)] 325 mg PO BID tab Acetaminophen Tab [Tylenol] 650 mg PO Q6HR PRN tab PRN Reason: Mild Pain Or Fever > 100.5 Continue Pantoprazole Sodium [Protonix] 40 mg PO HS Atorvastatin Calcium [Lipitor] 40 mg PO HS ALPRAZolam [Xanax] 0.25 mg PO DAILY PRN PRN Reason: Anxiety Ezetimibe [Zetia] 10 mg PO HS Metoprolol Succinate (ER) [Toprol XL] 12.5 mg PO DAILY traZODone HCL 50 - 100 mg PO HS PRN PRN Reason: Insomnia Sodium Bicarbonate Tab 650 mg PO BID Midodrine HCl [ProAmantine] 2.5 mg PO DIRECTED Furosemide [Lasix] 20 mg PO Q2D Furosemide [Lasix] 40 mg PO Q2D Magnesium 500 mg PO DAILY Ferrous Sulfate [Iron (65 MG Elemental)] 325 mg PO DAILY Acetaminophen-Codeine 300-30mg [Tylenol w/codeine #3] 1 tab PO QID PRN PRN Reason: Pain Megestrol [Megace] 800 mg PO DAILY Discontinued Apixaban [Eliquis] 5 mg PO BID tab No Action Ascorbic Acid [Vitamin C] 500 mg PO DAILY Cholecalciferol [Vitamin D3 (25 Mcg = 1000 Iu)] 50 mcg PO DAILY Multivitamins, Thera [Multivitamin (formulary)] 1 tab PO DAILY Lorecet 5/300 1 tab PO QID PRN PRN Reason: Pain Discharge Medication List ALPRAZolam [Xanax] 0.25 mg PO DAILY PRN 03/10/16 [History] Atorvastatin Calcium [Lipitor] 40 mg PO HS 03/10/16 [History] Pantoprazole Sodium [Protonix] 40 mg PO HS 03/10/16 [History] Ezetimibe [Zetia] 10 mg PO HS 08/24/19 [History] Metoprolol Succinate (ER) [Toprol XL] 12.5 mg PO DAILY 08/24/19 [History] traZODone HCL 50 - 100 mg PO HS PRN 08/24/19 [History] Furosemide [Lasix] 40 mg PO Q2D 03/03/21 [History] Ascorbic Acid [Vitamin C] 500 mg PO DAILY 03/11/21 [History] Cholecalciferol [Vitamin D3 (25 Mcg = 1000 Iu)] 50 mcg PO DAILY 03/11/21 [Histor y] Ferrous Sulfate [Iron (65 MG Elemental)] 325 mg PO DAILY 03/11/21 [History] Magnesium 500 mg PO DAILY 03/11/21 [History] Multivitamins, Thera [Multivitamin (formulary)] 1 tab PO DAILY 03/11/21 [His tory] Acetaminophen-Codeine 300-30mg [Tylenol w/codeine #3] 1 tab PO QID PRN 09/15/22 [History] Furosemide [Lasix] 20 mg PO Q2D 09/15/22 [History] Lorecet 5/300 1 tab PO QID PRN 09/15/22 [History] Megestrol [Megace] 800 mg PO DAILY 09/15/22 [History] Midodrine HCl [ProAmantine] 2.5 mg PO DIRECTED 09/15/22 [History] Sodium Bicarbonate Tab 650 mg PO BID 09/15/22 [History] Acetaminophen Tab [Tylenol] 650 mg PO Q6HR PRN tab 09/18/22 [Rx] Ferrous Sulfate [Iron (65 MG Elemental)] 325 mg PO BID tab 09/18/22 [Rx] cefUROXime axetiL [Cefuroxime] 500 mg PO BID 5 Days #10 tab 09/18/22 [Rx] Follow up Appointment(s)/Referral(s): Spencer Evans MD [Primary Care Provider] - 1-2 days Discharge Disposition: HOME WITH HOSPICE
== END 2022-09-18 09:48 | disposition hospice, home (50) | DRG 543 ==
LOC: EC 22:03 → 3SCARD 09-15 03:26
PROVIDERS: ADMIT Hospitalist; ATTEND Hospitalist
PROC: 093K7ZZ Control Bleeding in Nasal Mucosa and Soft Tissue, Via Natural or Artificial Opening (ICD-10-PCS; principal; 2022-09-15)
PROC: 30233N1 Transfusion of Nonautologous Red Blood Cells into Peripheral Vein, Percutaneous Approach (ICD-10-PCS; 2022-09-15)
DX: C79.51 Secondary malignant neoplasm of bone (principal); I13.0 Hypertensive heart and chronic kidney disease with heart failure and stage 1 through stage 4 chronic kidney disease, or unspecified chronic kidney disease; N17.9 Acute kidney failure, unspecified; I48.20 Chronic atrial fibrillation, unspecified; N13.30 Unspecified hydronephrosis; I48.92 Unspecified atrial flutter; I50.32 Chronic diastolic (congestive) heart failure; J98.11 Atelectasis; D69.6 Thrombocytopenia, unspecified; I27.20 Pulmonary hypertension, unspecified; D63.1 Anemia in chronic kidney disease; C61 Malignant neoplasm of prostate; N18.30 Chronic kidney disease, stage 3 unspecified; G31.9 Degenerative disease of nervous system, unspecified; Z51.5 Encounter for palliative care; R04.0 Epistaxis; D63.0 Anemia in neoplastic disease; I08.1 Rheumatic disorders of both mitral and tricuspid valves; F32.A Depression, unspecified; E78.5 Hyperlipidemia, unspecified; E87.5 Hyperkalemia; H35.30 Unspecified macular degeneration; N13.9 Obstructive and reflux uropathy, unspecified; K21.9 Gastro-esophageal reflux disease without esophagitis; H91.90 Unspecified hearing loss, unspecified ear; R82.71 Bacteriuria; R09.02 Hypoxemia; G89.29 Other chronic pain; R07.9 Chest pain, unspecified; M25.511 Pain in right shoulder; R77.8 Other specified abnormalities of plasma proteins; M54.9 Dorsalgia, unspecified; Z79.01 Long term (current) use of anticoagulants; Z79.818 Long term (current) use of other agents affecting estrogen receptors and estrogen levels; Z79.899 Other long term (current) drug therapy; Z95.0 Presence of cardiac pacemaker; Z87.891 Personal history of nicotine dependence; Z85.118 Personal history of other malignant neoplasm of bronchus and lung
CPT/HCPCS: 36415; 51798; 70450; 71046; 74176; 80048; 80053; 81001; 82607; 82728; 82747; 83010; 83540; 83550; 83605; 83735; 83880; 83921; 84145; 84153; 84484; 85025; 85045; 85384; 85610; 85730; 86850; 86900; 86901; 86920; 87502; 93005; 93306; 96361; 96365; 96366; 96375; 99291